=== PATIENT | female | born 1935 | race Caucasian/White ===

== ENCOUNTER → 2023-06-01 08:42 | Outpatient (REF) | payer OTHER, SELFPAY ==
[2023-06-01 08:58] LABS: % Basophils 0.8 % (0-2); % Eosinophils 5.2 % (0-6); % Immature Granulocytes 0.2 % (0-0.5); % Lymphocytes 30.5 % (20.5-51.1); % Monocytes 10.1 % (1.7-9.3); % Neutrophils 53.2 % (42.2-75.2); Absolute Eosinophils 0.3 10^3/uL (0-0.7); Absolute Lymphocytes 1.6 10^3/uL (1.2-3.4); Absolute Monocytes 0.5 10^3/uL (0.1-0.6); Absolute Neutrophils 2.7 10^3/uL (1.4-6.5); Hematocrit 27.3 % (37.0-47.0); Hemoglobin 9.1 g/dL (12.0-16.0); Mean Corp Hgb Conc. 33.3 g/dL (33.0-37.0); Mean Corpuscular Hgb 31.3 pg (27.0-31.0); Mean Corpuscular Volume 93.8 fL (81.0-99.0); Mean Platelet Volume 10.1 fL (7.4-10.4); Platelet Count 184 10^3/uL (130-400); Red Blood Cell Count 2.91 10^6/uL (4.20-5.40); Red Cell Dist. Width 13.4 % (11.5-14.5); White Blood Cell Count 5.2 10^3/uL (4.8-10.8)
== END ==
LOC: OIDL 08:42
PROVIDERS: ATTENDING PHYSICIAN Internal Medicine Hematology & Oncology
DX: D63.1 Anemia in chronic kidney disease (principal)
CPT/HCPCS: 36415; 85025

== ENCOUNTER → 2023-06-14 13:11 | Outpatient (REF) | payer OTHER, SELFPAY ==
[2023-06-14 13:37] LABS: % Basophils 0.6 % (0-2); % Eosinophils 4.8 % (0-6); % Lymphocytes 23.5 % (20.5-51.1); % Monocytes 7.6 % (1.7-9.3); % Neutrophils 63.5 % (42.2-75.2); Absolute Eosinophils 0.2 10^3/uL (0-0.7); Absolute Lymphocytes 1.2 10^3/uL (1.2-3.4); Absolute Monocytes 0.4 10^3/uL (0.1-0.6); Absolute Neutrophils 3.2 10^3/uL (1.4-6.5); Hematocrit 29.7 % (37.0-47.0); Hemoglobin 9.7 g/dL (12.0-16.0); Mean Corp Hgb Conc. 32.7 g/dL (33.0-37.0); Mean Corpuscular Hgb 30.8 pg (27.0-31.0); Mean Corpuscular Volume 94.3 fL (81.0-99.0); Mean Platelet Volume 11.2 fL (7.4-10.4); Platelet Count 128 10^3/uL (130-400); Red Blood Cell Count 3.15 10^6/uL (4.20-5.40); Red Cell Dist. Width 14.2 % (11.5-14.5)
[2023-06-14 16:10] LABS: Iron 69 ug/dl (37-170)
[2023-06-14 16:19] LABS: Percent Saturation 31 % (20-50); Total Iron Binding Capacity 221 ug/dl (265-497)
== END ==
LOC: OIDL 13:11
PROVIDERS: ATTENDING PHYSICIAN Internal Medicine Hematology & Oncology
DX: D63.1 Anemia in chronic kidney disease (principal); N18.4 Chronic kidney disease, stage 4 (severe)
CPT/HCPCS: 36415; 82728; 83540; 83550; 85025

== ENCOUNTER → 2023-06-29 13:48 | Outpatient (REF) | payer OTHER, SELFPAY ==
[2023-06-29 14:04] LABS: % Basophils 0.7 % (0-2); % Eosinophils 4.2 % (0-6); % Immature Granulocytes 0.2 % (0-0.5); % Lymphocytes 25.8 % (20.5-51.1); % Monocytes 9.6 % (1.7-9.3); % Neutrophils 59.5 % (42.2-75.2); Absolute Eosinophils 0.2 10^3/uL (0-0.7); Absolute Lymphocytes 1.2 10^3/uL (1.2-3.4); Absolute Monocytes 0.4 10^3/uL (0.1-0.6); Absolute Neutrophils 2.7 10^3/uL (1.4-6.5); Hematocrit 30.4 % (37.0-47.0); Hemoglobin 9.6 g/dL (12.0-16.0); Mean Corp Hgb Conc. 31.6 g/dL (33.0-37.0); Mean Corpuscular Volume 98.1 fL (81.0-99.0); Mean Platelet Volume 9.1 fL (7.4-10.4); Platelet Count 184 10^3/uL (130-400); White Blood Cell Count 4.6 10^3/uL (4.8-10.8)
== END ==
LOC: OIDL 13:48
PROVIDERS: ATTENDING PHYSICIAN Internal Medicine Hematology & Oncology
DX: D63.1 Anemia in chronic kidney disease (principal); N18.4 Chronic kidney disease, stage 4 (severe)
CPT/HCPCS: 36415; 85025

== ENCOUNTER → 2023-07-20 13:47 | Outpatient (REF) | payer OTHER, SELFPAY ==
[2023-07-20 14:05] LABS: % Basophils 0.5 % (0-2); % Eosinophils 4.5 % (0-6); % Immature Granulocytes 0.2 % (0-0.5); % Lymphocytes 23.4 % (20.5-51.1); % Monocytes 9.9 % (1.7-9.3); % Neutrophils 61.5 % (42.2-75.2); Absolute Eosinophils 0.3 10^3/uL (0-0.7); Absolute Lymphocytes 1.4 10^3/uL (1.2-3.4); Absolute Monocytes 0.6 10^3/uL (0.1-0.6); Absolute Neutrophils 3.6 10^3/uL (1.4-6.5); Hematocrit 30.9 % (37.0-47.0); Hemoglobin 9.8 g/dL (12.0-16.0); Mean Corp Hgb Conc. 31.7 g/dL (33.0-37.0); Mean Corpuscular Hgb 31.3 pg (27.0-31.0); Mean Corpuscular Volume 98.7 fL (81.0-99.0); Platelet Count 189 10^3/uL (130-400); Red Blood Cell Count 3.13 10^6/uL (4.20-5.40); Red Cell Dist. Width 13.2 % (11.5-14.5); White Blood Cell Count 5.8 10^3/uL (4.8-10.8)
[2023-07-20 15:32] LABS: Iron 100 ug/dl (37-170)
[2023-07-20 15:42] LABS: Percent Saturation 46 % (20-50); Total Iron Binding Capacity 215 ug/dl (265-497)
== END ==
LOC: OIDL 13:47
PROVIDERS: ATTENDING PHYSICIAN Internal Medicine Hematology & Oncology
DX: D63.1 Anemia in chronic kidney disease (principal); N18.4 Chronic kidney disease, stage 4 (severe)
CPT/HCPCS: 36415; 82728; 83540; 83550; 85025

== ENCOUNTER → 2023-08-03 13:50 | Outpatient (REF) | payer OTHER, SELFPAY ==
[2023-08-03 14:01] LABS: % Basophils 0.4 % (0-2); % Eosinophils 3.5 % (0-6); % Immature Granulocytes 0.1 % (0-0.5); % Lymphocytes 19.1 % (20.5-51.1); % Monocytes 9.4 % (1.7-9.3); % Neutrophils 67.5 % (42.2-75.2); Absolute Eosinophils 0.3 10^3/uL (0-0.7); Absolute Lymphocytes 1.6 10^3/uL (1.2-3.4); Absolute Monocytes 0.8 10^3/uL (0.1-0.6); Absolute Neutrophils 5.6 10^3/uL (1.4-6.5); Hematocrit 33.8 % (37.0-47.0); Hemoglobin 10.8 g/dL (12.0-16.0); Mean Corpuscular Hgb 31.4 pg (27.0-31.0); Mean Corpuscular Volume 98.3 fL (81.0-99.0); Mean Platelet Volume 8.9 fL (7.4-10.4); Platelet Count 212 10^3/uL (130-400); Red Blood Cell Count 3.44 10^6/uL (4.20-5.40); Red Cell Dist. Width 13.2 % (11.5-14.5); White Blood Cell Count 8.3 10^3/uL (4.8-10.8)
== END ==
LOC: OIDL 13:50
PROVIDERS: ATTENDING PHYSICIAN Internal Medicine Hematology & Oncology; FAMILY PHYSICIAN Family Medicine
DX: D63.1 Anemia in chronic kidney disease (principal); N18.4 Chronic kidney disease, stage 4 (severe)
CPT/HCPCS: 36415; 85025

== ENCOUNTER → 2023-08-17 13:37 | Outpatient (REF) | payer OTHER, SELFPAY ==
[2023-08-17 13:49] LABS: % Basophils 0.4 % (0-2); % Eosinophils 2.7 % (0-6); % Immature Granulocytes 0.1 % (0-0.5); % Lymphocytes 20.9 % (20.5-51.1); % Monocytes 8.8 % (1.7-9.3); % Neutrophils 67.1 % (42.2-75.2); Absolute Eosinophils 0.2 10^3/uL (0-0.7); Absolute Lymphocytes 1.4 10^3/uL (1.2-3.4); Absolute Monocytes 0.6 10^3/uL (0.1-0.6); Absolute Neutrophils 4.5 10^3/uL (1.4-6.5); Hematocrit 33.2 % (37.0-47.0); Hemoglobin 10.5 g/dL (12.0-16.0); Mean Corp Hgb Conc. 31.6 g/dL (33.0-37.0); Mean Corpuscular Hgb 31.2 pg (27.0-31.0); Mean Corpuscular Volume 98.5 fL (81.0-99.0); Mean Platelet Volume 8.9 fL (7.4-10.4); Platelet Count 209 10^3/uL (130-400); Red Blood Cell Count 3.37 10^6/uL (4.20-5.40); Red Cell Dist. Width 13.6 % (11.5-14.5); White Blood Cell Count 6.7 10^3/uL (4.8-10.8)
[2023-08-17 15:03] LABS: Blood Urea Nitrogen 56 mg/dl (7-17); Iron 61 ug/dl (37-170)
[2023-08-17 15:15] LABS: Percent Saturation 28 % (20-50); Total Iron Binding Capacity 217 ug/dl (265-497)
== END ==
LOC: OIDL 13:37
PROVIDERS: ATTENDING PHYSICIAN Internal Medicine Hematology & Oncology; FAMILY PHYSICIAN Family Medicine
DX: D63.1 Anemia in chronic kidney disease (principal)
CPT/HCPCS: 36415; 82565; 82728; 83540; 83550; 84520; 85025

== ENCOUNTER → 2023-08-31 13:19 | Outpatient (REF) | payer OTHER, SELFPAY ==
[2023-08-31 13:39] LABS: % Basophils 0.3 % (0-2); % Eosinophils 1.8 % (0-6); % Immature Granulocytes 0.2 % (0-0.5); % Lymphocytes 14.3 % (20.5-51.1); % Monocytes 6.1 % (1.7-9.3); % Neutrophils 77.3 % (42.2-75.2); Absolute Eosinophils 0.2 10^3/uL (0-0.7); Absolute Lymphocytes 1.4 10^3/uL (1.2-3.4); Absolute Monocytes 0.6 10^3/uL (0.1-0.6); Absolute Neutrophils 7.3 10^3/uL (1.4-6.5); Hematocrit 36.7 % (37.0-47.0); Hemoglobin 11.7 g/dL (12.0-16.0); Mean Corp Hgb Conc. 31.9 g/dL (33.0-37.0); Mean Corpuscular Hgb 31.3 pg (27.0-31.0); Mean Corpuscular Volume 98.1 fL (81.0-99.0); Mean Platelet Volume 8.8 fL (7.4-10.4); Platelet Count 248 10^3/uL (130-400); Red Blood Cell Count 3.74 10^6/uL (4.20-5.40); White Blood Cell Count 9.4 10^3/uL (4.8-10.8)
[2023-08-31 15:49] LABS: Iron 81 ug/dl (37-170)
[2023-08-31 15:59] LABS: Percent Saturation 35 % (20-50); Total Iron Binding Capacity 226 ug/dl (265-497)
== END ==
LOC: OIDL 13:19
PROVIDERS: ATTENDING PHYSICIAN Internal Medicine Hematology & Oncology; FAMILY PHYSICIAN Family Medicine
DX: D63.1 Anemia in chronic kidney disease (principal)
CPT/HCPCS: 36415; 82728; 83540; 83550; 85025

== ENCOUNTER → 2023-09-14 13:40 | Outpatient (REF) | payer OTHER, SELFPAY ==
[2023-09-14 13:49] LABS: % Basophils 0.3 % (0-2); % Eosinophils 3.3 % (0-6); % Immature Granulocytes 0.2 % (0-0.5); % Lymphocytes 22.1 % (20.5-51.1); % Neutrophils 66.1 % (42.2-75.2); Absolute Eosinophils 0.2 10^3/uL (0-0.7); Absolute Lymphocytes 1.3 10^3/uL (1.2-3.4); Absolute Monocytes 0.5 10^3/uL (0.1-0.6); Hematocrit 37.3 % (37.0-47.0); Hemoglobin 11.7 g/dL (12.0-16.0); Mean Corp Hgb Conc. 31.4 g/dL (33.0-37.0); Mean Corpuscular Hgb 30.6 pg (27.0-31.0); Mean Corpuscular Volume 97.6 fL (81.0-99.0); Platelet Count 201 10^3/uL (130-400); Red Blood Cell Count 3.82 10^6/uL (4.20-5.40); Red Cell Dist. Width 13.1 % (11.5-14.5)
[2023-09-14 15:19] LABS: Vitamin D, 25-OH*** 42.5 ng/mL (30-80)
[2023-09-14 16:09] LABS: Folate > 20.0 ng/ml (2.76-20); Vitamin B12 > 1000 pg/ml (239-931)
== END ==
LOC: OIDL 13:40
PROVIDERS: ATTENDING PHYSICIAN Internal Medicine Hematology & Oncology
DX: D63.1 Anemia in chronic kidney disease (principal)
CPT/HCPCS: 36415; 82306; 82607; 82746; 85025

== ENCOUNTER → 2023-09-18 11:36 | Outpatient (REF) | payer OTHER, SELFPAY ==
[2023-09-18 12:57] LABS: % Basophils 0.7 % (0-2); % Eosinophils 5.1 % (0-6); % Immature Granulocytes 0.5 % (0-0.5); % Lymphocytes 24.7 % (20.5-51.1); % Monocytes 7.9 % (1.7-9.3); % Neutrophils 61.1 % (42.2-75.2); Absolute Eosinophils 0.3 10^3/uL (0-0.7); Absolute Lymphocytes 1.4 10^3/uL (1.2-3.4); Absolute Monocytes 0.4 10^3/uL (0.1-0.6); Absolute Neutrophils 3.3 10^3/uL (1.4-6.5); Hematocrit 32.5 % (37.0-47.0); Hemoglobin 10.5 g/dL (12.0-16.0); Mean Corp Hgb Conc. 32.3 g/dL (33.0-37.0); Mean Corpuscular Hgb 30.8 pg (27.0-31.0); Mean Corpuscular Volume 95.3 fL (81.0-99.0); Mean Platelet Volume 9.7 fL (7.4-10.4); Nucleated Red Blood Cells % 0 %; Platelet Count 246 10^3/uL (130-400); Red Blood Cell Count 3.41 10^6/uL (4.20-5.40); Red Cell Dist. Width 13.2 % (11.5-14.5); White Blood Cell Count 5.5 10^3/uL (4.8-10.8)
[2023-09-18 14:02] LABS: Vitamin D, 25-OH*** 38.9 ng/mL (30-80)
== END ==
LOC: OIDL 11:36
PROVIDERS: ATTENDING PHYSICIAN Nurse Practitioner Family
DX: D63.1 Anemia in chronic kidney disease (principal); N18.4 Chronic kidney disease, stage 4 (severe); D50.9 Iron deficiency anemia, unspecified; D51.9 Vitamin B12 deficiency anemia, unspecified
CPT/HCPCS: 82306; 85025

== ENCOUNTER → 2023-09-25 08:25 | Outpatient (REF) | payer OTHER, SELFPAY ==
[2023-09-25 09:36] LABS: % Eosinophils 4.9 % (0-6); % Immature Granulocytes 0.2 % (0-0.5); % Lymphocytes 34.5 % (20.5-51.1); % Monocytes 9.6 % (1.7-9.3); % Neutrophils 49.8 % (42.2-75.2); Absolute Basophils 0.1 10^3/uL (0-0.2); Absolute Eosinophils 0.3 10^3/uL (0-0.7); Absolute Lymphocytes 2.1 10^3/uL (1.2-3.4); Absolute Monocytes 0.6 10^3/uL (0.1-0.6); Hematocrit 33.8 % (37.0-47.0); Mean Corp Hgb Conc. 32.5 g/dL (33.0-37.0); Mean Corpuscular Hgb 30.6 pg (27.0-31.0); Mean Corpuscular Volume 94.2 fL (81.0-99.0); Mean Platelet Volume 9.4 fL (7.4-10.4); Nucleated Red Blood Cells % 0 %; Platelet Count 227 10^3/uL (130-400); Red Blood Cell Count 3.59 10^6/uL (4.20-5.40); Red Cell Dist. Width 13.1 % (11.5-14.5); White Blood Cell Count 5.9 10^3/uL (4.8-10.8)
[2023-09-25 09:57] LABS: Phosphorus 7.1 mg/dl (2.5-4.5)
== END ==
LOC: OIDL 08:25
PROVIDERS: ATTENDING PHYSICIAN Internal Medicine Hematology & Oncology
DX: D63.1 Anemia in chronic kidney disease (principal); N18.4 Chronic kidney disease, stage 4 (severe)
CPT/HCPCS: 84100; 85025

== ENCOUNTER → 2023-09-28 08:54 | Outpatient (REF) | payer OTHER, SELFPAY ==
[2023-09-28 09:39] LABS: % Basophils 0.8 % (0-2); % Eosinophils 2.7 % (0-6); % Immature Granulocytes 0.4 % (0-0.5); % Lymphocytes 22.5 % (20.5-51.1); % Monocytes 11.1 % (1.7-9.3); % Neutrophils 62.5 % (42.2-75.2); Absolute Basophils 0.1 10^3/uL (0-0.2); Absolute Eosinophils 0.2 10^3/uL (0-0.7); Absolute Lymphocytes 1.6 10^3/uL (1.2-3.4); Absolute Monocytes 0.8 10^3/uL (0.1-0.6); Absolute Neutrophils 4.6 10^3/uL (1.4-6.5); Hematocrit 31.1 % (37.0-47.0); Hemoglobin 10.1 g/dL (12.0-16.0); Mean Corp Hgb Conc. 32.5 g/dL (33.0-37.0); Mean Corpuscular Hgb 30.4 pg (27.0-31.0); Mean Corpuscular Volume 93.7 fL (81.0-99.0); Mean Platelet Volume 9.3 fL (7.4-10.4); Nucleated Red Blood Cells % 0 %; Platelet Count 185 10^3/uL (130-400); Red Blood Cell Count 3.32 10^6/uL (4.20-5.40); Red Cell Dist. Width 13.1 % (11.5-14.5); White Blood Cell Count 7.3 10^3/uL (4.8-10.8)
== END ==
LOC: REG 08:54
PROVIDERS: ATTENDING PHYSICIAN Internal Medicine Hematology & Oncology; FAMILY PHYSICIAN Family Medicine
DX: D63.1 Anemia in chronic kidney disease (principal); N18.4 Chronic kidney disease, stage 4 (severe); D50.9 Iron deficiency anemia, unspecified; D51.9 Vitamin B12 deficiency anemia, unspecified
CPT/HCPCS: 36415; 85025

== ENCOUNTER → 2023-10-12 09:32 | Outpatient (REF) | payer OTHER, SELFPAY ==
[2023-10-12 09:42] LABS: % Basophils 0.7 % (0-2); % Eosinophils 3.1 % (0-6); % Monocytes 8.4 % (1.7-9.3); % Neutrophils 64.8 % (42.2-75.2); Absolute Eosinophils 0.2 10^3/uL (0-0.7); Absolute Lymphocytes 1.4 10^3/uL (1.2-3.4); Absolute Monocytes 0.5 10^3/uL (0.1-0.6); Absolute Neutrophils 3.9 10^3/uL (1.4-6.5); Hematocrit 32.4 % (37.0-47.0); Hemoglobin 10.6 g/dL (12.0-16.0); Mean Corp Hgb Conc. 32.7 g/dL (33.0-37.0); Mean Corpuscular Hgb 30.8 pg (27.0-31.0); Mean Corpuscular Volume 94.2 fL (81.0-99.0); Platelet Count 237 10^3/uL (130-400); Red Blood Cell Count 3.44 10^6/uL (4.20-5.40); Red Cell Dist. Width 12.8 % (11.5-14.5)
[2023-10-12 10:38] LABS: Blood Urea Nitrogen 83 mg/dl (7-17); Iron 203 ug/dl (37-170)
[2023-10-12 10:45] LABS: Percent Saturation 103 % (20-50); Total Iron Binding Capacity 197 ug/dl (265-497)
== END ==
LOC: OIDL 09:32
PROVIDERS: Internal Medicine Hematology & Oncology; ATTENDING PHYSICIAN Nurse Practitioner Family; FAMILY PHYSICIAN Specialist
DX: D63.1 Anemia in chronic kidney disease (principal)
CPT/HCPCS: 36415; 82565; 82728; 83540; 83550; 84520; 85025

== ENCOUNTER → 2023-10-26 09:28 | Outpatient (REF) | payer OTHER, SELFPAY ==
[2023-10-26 09:44] LABS: % Basophils 0.6 % (0-2); % Eosinophils 3.3 % (0-6); % Immature Granulocytes 0.1 % (0-0.5); % Lymphocytes 18.7 % (20.5-51.1); % Monocytes 10.5 % (1.7-9.3); % Neutrophils 66.8 % (42.2-75.2); Absolute Eosinophils 0.2 10^3/uL (0-0.7); Absolute Lymphocytes 1.4 10^3/uL (1.2-3.4); Absolute Monocytes 0.8 10^3/uL (0.1-0.6); Absolute Neutrophils 4.8 10^3/uL (1.4-6.5); Hematocrit 30.7 % (37.0-47.0); Mean Corp Hgb Conc. 32.6 g/dL (33.0-37.0); Mean Corpuscular Hgb 31.8 pg (27.0-31.0); Mean Corpuscular Volume 97.8 fL (81.0-99.0); Mean Platelet Volume 8.4 fL (7.4-10.4); Platelet Count 207 10^3/uL (130-400); Red Blood Cell Count 3.14 10^6/uL (4.20-5.40); Red Cell Dist. Width 13.8 % (11.5-14.5); White Blood Cell Count 7.2 10^3/uL (4.8-10.8)
== END ==
LOC: OID 09:28
PROVIDERS: ATTENDING PHYSICIAN Nurse Practitioner Family; PRIMARYCARE PHYSICIAN Specialist
DX: N18.4 Chronic kidney disease, stage 4 (severe) (principal); D63.1 Anemia in chronic kidney disease; D50.9 Iron deficiency anemia, unspecified; D51.9 Vitamin B12 deficiency anemia, unspecified
CPT/HCPCS: 36415; 85025

== ENCOUNTER → 2023-11-08 10:18 | Outpatient (REF) | payer OTHER, SELFPAY ==
[2023-11-08 10:42] LABS: % Basophils 0.7 % (0-2); % Eosinophils 3.9 % (0-6); % Immature Granulocytes 0.2 % (0-0.5); % Lymphocytes 24.2 % (20.5-51.1); % Monocytes 8.2 % (1.7-9.3); % Neutrophils 62.8 % (42.2-75.2); Absolute Eosinophils 0.2 10^3/uL (0-0.7); Absolute Lymphocytes 1.4 10^3/uL (1.2-3.4); Absolute Monocytes 0.5 10^3/uL (0.1-0.6); Absolute Neutrophils 3.5 10^3/uL (1.4-6.5); Hemoglobin 10.2 g/dL (12.0-16.0); Mean Corp Hgb Conc. 32.9 g/dL (33.0-37.0); Mean Corpuscular Hgb 31.5 pg (27.0-31.0); Mean Corpuscular Volume 95.7 fL (81.0-99.0); Mean Platelet Volume 8.8 fL (7.4-10.4); Platelet Count 240 10^3/uL (130-400); Red Blood Cell Count 3.24 10^6/uL (4.20-5.40); Red Cell Dist. Width 13.1 % (11.5-14.5); White Blood Cell Count 5.6 10^3/uL (4.8-10.8)
[2023-11-08 12:26] LABS: Iron 145 ug/dl (37-170)
[2023-11-08 12:35] LABS: Percent Saturation 69 % (20-50); Total Iron Binding Capacity 208 ug/dl (265-497)
== END ==
LOC: OID 10:18
PROVIDERS: Internal Medicine Hematology & Oncology; ATTENDING PHYSICIAN Nurse Practitioner Family; FAMILY PHYSICIAN Specialist
DX: N18.4 Chronic kidney disease, stage 4 (severe) (principal); D63.1 Anemia in chronic kidney disease; D50.9 Iron deficiency anemia, unspecified; D51.9 Vitamin B12 deficiency anemia, unspecified
CPT/HCPCS: 36415; 82728; 83540; 83550; 85025

== ENCOUNTER → 2023-12-07 09:42 | Outpatient (REF) | payer OTHER, SELFPAY ==
[2023-12-07 09:53] LABS: % Basophils 0.7 % (0-2); % Immature Granulocytes 0.2 % (0-0.5); % Lymphocytes 20.6 % (20.5-51.1); % Monocytes 9.8 % (1.7-9.3); % Neutrophils 65.7 % (42.2-75.2); Absolute Eosinophils 0.2 10^3/uL (0-0.7); Absolute Lymphocytes 1.2 10^3/uL (1.2-3.4); Absolute Monocytes 0.6 10^3/uL (0.1-0.6); Absolute Neutrophils 3.7 10^3/uL (1.4-6.5); Hemoglobin 10.5 g/dL (12.0-16.0); Mean Corp Hgb Conc. 33.9 g/dL (33.0-37.0); Mean Corpuscular Hgb 32.6 pg (27.0-31.0); Mean Corpuscular Volume 96.3 fL (81.0-99.0); Mean Platelet Volume 8.9 fL (7.4-10.4); Platelet Count 247 10^3/uL (130-400); Red Blood Cell Count 3.22 10^6/uL (4.20-5.40); White Blood Cell Count 5.6 10^3/uL (4.8-10.8)
[2023-12-07 11:20] LABS: Iron 172 ug/dl (37-170)
[2023-12-07 11:30] LABS: Percent Saturation 78 % (20-50); Total Iron Binding Capacity 218 ug/dl (265-497)
== END ==
LOC: OID 09:42
PROVIDERS: ATTENDING PHYSICIAN Nurse Practitioner Family
DX: N18.4 Chronic kidney disease, stage 4 (severe) (principal); D63.1 Anemia in chronic kidney disease
CPT/HCPCS: 36415; 82728; 83540; 83550; 85025

== ENCOUNTER 2023-12-27 11:01 | Inpatient (IN) | payer OTHER, SELFPAY ==
[2023-12-25 17:08] VITALS: BP 152/63
[2023-12-25 17:14] VITALS: BP 152/63; BMI 24.1
--- NOTE | 2023-12-25 17:28 | ED.GENMED ---
History of Present Illness
General
Chief Complaint: Fatigue
Source: patient
Time Seen by Provider: 12/25/23 17:14
History of Present Illness
History of Present Illness:
88-year-old female with past medical history of hypertension, chronic kidney disease (on peritoneal dialysis) presenting to the emergency department via EMS from home for increased fatigue, generalized weakness, diminished p.o. intake and generally
feeling unwell. This all started about 1 week ago. Patient notes that she was also started on tramadol about a week and a half ago for some pain in her upper part of her back as well as to help her sleep and has been taking this nightly. Patient
also notes about 2 days ago she started with constipation and took a Senokot yesterday and today. She denies any fevers, chills, rigors, URI-like symptoms, abdominal pain, urinary symptoms, cough or any other concerns. Patient lives at home alone
on her own. Does not use any ambulatory assistive devices.
Past History
Past History
ED Past Medical History: HTN, Hypercholesterolemia, Renal failure and Other (Raynauds)
ED Past Surgical History: Orthopedic
Social History
Tobacco: Non-smoker
Alcohol: None
Drug: None
Personal:
Living: alone
Employment: Retired
Family History
Family History: Other
Review of Systems
Review of Systems
All Other Systems: ROS reviewed and negative except as documented in HPI and ROS
Phy Exam
Physical Exam
Physical Exam:
GENERAL: Alert , in no apparent distress, Thin and somewhat soft-spoken
EYE: Clear conjunctiva
NECK: Supple
ENT: Mildly dry mucous membranes
CARDIAC: Regular rate and rhythm .
LUNGS: Clear breath sounds bilaterally, no acute respiratory distress, no wheezes/rales/rhonchi
ABDOMEN: Soft, without focal tenderness, no r/g, no cvat
NEUROLOGICAL: Alert and oriented x 3
SKIN: Warm and dry, skin intact.
MUSCULOSKELETAL: No edema, well perfused.
PSYCH: Normal and appropriate interaction.
Scores
Heart Failure Risk
Heart Failure Risk Score: Not Applicable
Heart Score for Chest Pain Patients
STEMI patient?: Not applicable
Withdrawal Assessment of Alcohol
Withdrawal Assessment Completed?: Not applicable
Course
Orders/Labs/Results
Orders:
Orders
12/25/23 17:09
EKG [Electrocardiogram (*1)] Urgent
Reason for Study: Fatigue / Weakness
EKG- Treatment ONCE
12/25/23 17:20
Electrocardiogram (*1) Urgent
Reason for Study: Fatigue / Weakness
Urinalysis Reflex To Culture Urgent
CR Chest - 2 Views Urgent
Comment:
Reason For Exam: fatigue, weak
12/25/23 17:31
COVID-19 Antigen Urgent
Source: Nasal Swab
Complete Blood Count/With Diff Urgent
Comprehensive Metabolic Panel Urgent
TSH Urgent
Troponin I Urgent
12/25/23 17:34
0.9% Sodium Chloride 500 ml [Nss] 500 ml IV BOLUS
12/25/23 17:52
Alprazolam [Xanax] 0.5 mg PO NOW STA
Abnormal Lab Results
12/25/23
17:31
RBC 3.25 L 10^6/uL
(4.20-5.40)
Hgb 10.7 L g/dL
(12.0-16.0)
Hct 31.6 L %
(37.0-47.0)
MCH 32.9 H pg
(27.0-31.0)
Absolute Lymphs (auto) 0.8 L 10^3/uL
(1.2-3.4)
Neutrophils % 77.8 H %
(42.2-75.2)
Lymphocytes % 11.8 L %
(20.5-51.1)
Sodium 133 L mmol/L
(135-145)
BUN 57 H mg/dl
(7-17)
Creatinine 7.0 H* mg/dL
(0.6-1.0)
Glucose 129 H mg/dl
(70-99)
Total Protein 6.1 L g/dl
(6.3-8.2)
TSH 227.00 H uIU/ml
(0.47-4.68)
12/25/23 17:31
12/25/23 17:31
Vital Signs
Initial and Last Documented VS:
Initial Vital Signs
BP
152/63
12/25/23 17:08
Last Documented Vital Signs
Temp Pulse Resp BP Pulse Ox
98.1 F 79 20 152/63 80
12/25/23 17:14 12/25/23 17:15 12/25/23 17:15 12/25/23 17:14 12/25/23 17:50
MDM/Problems Addressed
Differential Diagnosis Includes:
medication side effects specifically tramadol, electrolyte derangement, less concern for acute infection
MDM/Problems Addressed:
88-year-old female presenting emergency department for evaluation of generalized weakness, fatigue and diminished p.o. intake over the last week. Symptoms all started shortly after initiating tramadol. I suspect this is the most likely reasoning.
Patient also notes that she recently had her levothyroxine increased so certainly could be related to her thyroid issue however less likely. Will check labs and do infectious workup given patient's reported symptoms and age. Patient notes that she
lives at home alone on her own. Diminished p.o. intake so we will treat with light fluids. Reassessment following
Chronic conditions affecting care: Kidney disease
*Radiology
Radiology exam reviewed: radiology read reviewed
*Pulse Oximetry
Patient hypoxic: no
*EKG
Interpreted by ED Provider?: Yes
Comparison EKG: no changes
Heart Rate: 77
Rate: normal
Rhythm: sinus
[place]: normal axis
Interval: first degree heart block
*Audio Video Tech Interpretation
Rate: normal
Rhythm: sinus
*Critical Care Note
Total Time (30-74mins, 75-104mins- exclusive of procedures): Not Applicable
Data Reviewed
Review of Other/Old Records Reveals: Labs and Records
Comment
Comment:
5:50 PM:Called the patient's bedside the patient is having a panic attack. Patient notes that she has been having these more frequently over the last few weeks. Normally would just wait them out but today states she does not feel like she is able
to do this and is requesting something. Half milligram of Xanax p.o. ordered. Will continue to reassess.
Patient Management
Discussion with other providers: Hospitalist
Escalation/DeEscalation of care consider admission/obs:
Patients labs noted for mild anemia which is likely due to CKD. Her creatinine is significantly elevated at 7.0 and GFR of 5.2. TSH also markedly elevated at 227. Suspect patients presenting weakness is multifactorial but given her age, lives alone
and lab abnormalities feel it would be in patients best interest for inpatient eval. Hospitalist team accepts for continued evaluation and treatment
ED Attending Note
-
Portions of this chart may have been created with voice recognition software.� Occasional wrong word or��sound alike� substitutions may have occurred due to the inherent limitations of voice recognition software.
Discharge Plan
Departure
Patient Disposition: Admit
Date of Disposition: 12/25/23
Time of Disposition: 19:51
Presentation/result/management discussed w/ accepting MD/DO: Hospitalist
Discharge Problem:
Generalized weakness, CKD (chronic kidney disease), Hypothyroidism, Medication side effect
Prescriptions:
No Action
nifedipine [Procardia XL] 30 mg Tablet Extended Release 24hr
30 mg PO HS
tramadol 50 mg Tablet
50 mg PO BIDPRN PRN (Reason: moderate pain)
levothyroxine 25 mcg Tablet
50 mcg PO DAILY
furosemide 80 mg Tablet
80 mg PO DAILY
calcium carbonate [Calcium 500] 500 mg calcium (1,250 mg) Tablet,Chewable
500 mg PO DAILY
Estring 2 mg (7.5 mcg /24 hour) Ring
1 vag ring VAGINAL [id number]
Patient Comments:
12/25/23: currently not in, patient scheduled to get it replaced on Monday
losartan 100 mg Tablet
100 mg PO DAILY
rosuvastatin 5 mg Tablet
5 mg PO DAILY
Dialyvite 100-1 mg Tablet
1 tab PO DAILY
cholecalciferol (vitamin D3) [Vitamin D3] 50 mcg (2,000 unit) Tablet
50 mcg PO DAILY
febuxostat 40 mg Tablet
40 mg PO DAILY
cranberry 450 mg Tablet
450 mg PO DAILY
Interventions
Interventions:
*Risk Screen - Suicide Last Done: 12/25/23 17:48
*General Assessment Last Done: 12/25/23 17:47
*Neglect/Abuse Screening Last Done: 12/25/23 17:47
*ED COVID-19 Vaccine History Last Done: 12/25/23 17:35
Discharge Date and Time
Print Language: [place]
[2023-12-25] MEDS: NSS 500 IV (17:36)
[2023-12-25 17:55] LABS: % Basophils 0.3 % (0-2); % Eosinophils 1.8 % (0-6); % Immature Granulocytes 0.3 % (0-0.5); % Lymphocytes 11.8 % (20.5-51.1); % Neutrophils 77.8 % (42.2-75.2); Absolute Eosinophils 0.1 10^3/uL (0-0.7); Absolute Lymphocytes 0.8 10^3/uL (1.2-3.4); Absolute Monocytes 0.5 10^3/uL (0.1-0.6); Absolute Neutrophils 5.1 10^3/uL (1.4-6.5); Hematocrit 31.6 % (37.0-47.0); Hemoglobin 10.7 g/dL (12.0-16.0); Mean Corp Hgb Conc. 33.9 g/dL (33.0-37.0); Mean Corpuscular Hgb 32.9 pg (27.0-31.0); Mean Corpuscular Volume 97.2 fL (81.0-99.0); Mean Platelet Volume 8.9 fL (7.4-10.4); Nucleated Red Blood Cells % 0 %; Platelet Count 197 10^3/uL (130-400); Red Blood Cell Count 3.25 10^6/uL (4.20-5.40); White Blood Cell Count 6.6 10^3/uL (4.8-10.8)
[2023-12-25 17:56] VITALS: BP 152/61
[2023-12-25] MEDS: XANAX 0.5 MG PO (17:58)
[2023-12-25 18:00] VITALS: BP 168/66
[2023-12-25 18:08] LABS: ALT (SGPT) 22 U/L (0-35); AST (SGOT) 36 U/L (14-36); Albumin 3.9 g/dl (3.5-5.0); Alkaline Phosphatase 64 U/L (38-126); Blood Urea Nitrogen 57 mg/dl (7-17); Calcium 9.4 mg/dl (8.4-10.2); Carbon Dioxide 22 mmol/L (22-30); Chloride 98 mmol/L (98-107); Estimated Creatinine Clearance 4 ml/min; Glucose 129 mg/dl (70-99); Potassium 4.4 mmol/L (3.5-5.1); Sodium 133 mmol/L (135-145); Total Bilirubin 0.8 mg/dl (0.2-1.3); Total Protein 6.1 g/dl (6.3-8.2); eGFR 5.28
[2023-12-25 18:16] LABS: COVID-19 Antigen Negative (Negative)
[2023-12-25 18:17] LABS: Troponin I < 0.012 ng/ml
--- NOTE | 2023-12-25 18:54 | PHANOTE ---
med rec tech(12/25/23)-Patient states she is supposed to be on sevelamer HCl 800mg TID, but does not take it. Stated she did not want it while in the hospital either.
[2023-12-25 19:00] VITALS: BP 140/82
--- NOTE | 2023-12-25 19:00 | EDRN ---
Report received, introduced myself to patient and son, patient felt a little anxious still, meds still kicking in, will inform provider
--- NOTE | 2023-12-25 19:45 | EDRN ---
DAVID Styles went in to reassess patient who reports feeling much better and not as anxious, patient to be admitted to the hospital
--- NOTE | 2023-12-25 21:11 | HPS.HSE ---
Family Physician
-
Family Physician: Bill Scales
Chief Complaint
-
fatigue
History of Present Illness
88-year-old female past medical history of hypertension, ESRD on peritoneal dialysis, hypercholesterolemia, Raynaud's, presenting for fatigue, generalized weakness and decreased p.o. intake and generally feeling unwell over the past 2 weeks.
History is obtained from patient as well as patient's daughter who is a physician and very helpful in providing history.
Patient has been suffering from intermittent pain in her mid back radiating to her left side. She has been having a lot of difficulty falling asleep due to this. She was started on tramadol which has helped her back pain and help her sleep at
night. This was started around 10 days ago. Patient states that the fatigue started before initiation of tramadol. Patient is also been having constipation despite taking senna while on the tramadol and sometimes has abdominal pain.
A week ago patient had TSH checked and was started on levothyroxine by her antique collector. She was initially started on 25 mg which was increased to 75 mg but patient did not tolerate this so it was decreased to 50 mg.
Patient started peritoneal dialysis 3 months ago and has been tolerating this without any problems. She denies any shortness of breath or chest pain or fevers or chills or nausea or vomiting or cough.
Patient does not smoke or drink alcohol.
Medical History
Past Medical History
Past Medical History: Reports Other (hypertension, ESRD on peritoneal dialysis, hypercholesterolemia, Raynaud's,)
Past Surgical History: Reports None
Social History
Tobacco: Non-smoker
Alcohol: None
Drug: None
Family History
Family History: Not pertinent
Allergies / Home Medications
Allergies reflects when Allergies were last updated in [employer].
Home Medications with original date entered in [employer]
Allergy/Medication List:
Allergies
Allergy/AdvReac Type Severity Reaction Status Date / Time
aspirin Allergy Unknown Verified 05/17/20 14:48
ibuprofen Allergy Unknown Verified 05/17/20 14:48
iodine Allergy Hives Verified 05/17/20 14:48
Sulfa (Sulfonamide Allergy Vomiting Verified 05/17/20 14:48
Antibiotics)
narcotics Allergy Nausea Uncoded 05/17/20 14:48
Home Medications
calcium carbonate (Calcium 500) 500 mg PO DAILY 12/25/23
cholecalciferol (vitamin D3) 50 mcg (2,000 unit) tablet (Vitamin D3) 50 mcg PO DAILY 12/25/23
cranberry fruit 450 mg tablet (cranberry) 450 mg PO DAILY 12/25/23
estradiol 2 mg (7.5 mcg/24 hour) vaginal ring (Estring) 1 vag ring vaginal [id number] 12/25/23
febuxostat 40 mg tablet 40 mg PO DAILY 12/25/23
furosemide 80 mg tablet 80 mg PO DAILY 12/25/23
levothyroxine 25 mcg tablet 50 mcg PO DAILY 12/25/23
losartan 100 mg tablet 100 mg PO DAILY 12/25/23
nifedipine 30 mg tablet,extended release 24 hr (Procardia XL) 30 mg PO HS 12/25/23
rosuvastatin 5 mg tablet 5 mg PO DAILY 12/25/23
tramadol 50 mg tablet 50 mg PO BIDPRN PRN moderate pain 12/25/23
vitamin B complex-vitamin C 100 mg-folic acid 1 mg tablet (Dialyvite) 1 tab PO DAILY 12/25/23
Review of Systems
-
History Source: Patient
A 12 point ROS was completed and negative except as noted: Yes
Constitutional: Reports No Symptoms
EENT: Reports No Symptoms
Respiratory: Reports No Symptoms
Cardiac: Reports No Symptoms
Abdomen/GI: Reports No Symptoms
: Reports No Symptoms
Musculoskeletal: Reports See HPI
Skin: Reports No Symptoms
Neurological: Reports No Symptoms
Endocrine: Reports No Symptoms
Hematologic/Lymphatic: Reports No Symptoms
Psych: Reports No Symptoms
Physical Exam
Vital Signs
Vital Signs
Temp Pulse Resp BP Pulse Ox
98.1 F 79 20 152/63 80
12/25/23 17:14 12/25/23 17:15 12/25/23 17:15 12/25/23 17:14 12/25/23 17:50
Physical Exam
General: Well Developed, Well Nourished and No Apparent Distress
HEENT: NormoCephalic, Moist mucous membranes and Atraumatic
Respiratory: Clear
Cardiac: S1/S2 and Regular Rhythm; No Murmur or Rub
GI: Soft, Non Distended, Normal Bowel Sounds and Tender; No Organomegaly
Rectal: Deferred by Provider
Musculoskeletal: No Clubbing, No Cyanosis and No Edema
Skin: No Rash
Neuro: Nonfocal/grossly intact
Laboratory Results
-
12/25/23 17:31
12/25/23 17:31
Laboratory Results
Total Bilirubin 0.8 mg/dl (0.2-1.3) 12/25/23 17:31
AST 36 U/L (14-36) 12/25/23 17:31
ALT 22 U/L (0-35) 12/25/23 17:31
Alkaline Phosphatase 64 U/L (38-126) 12/25/23 17:31
Troponin I < 0.012 ng/ml 12/25/23 17:31
Data Reviewed
-
Lab Data: Labs Reviewed by me
Old Records: Reviewed
Impression/Plan
-
IMPRESSION:
PLAN:
# Weakness secondary to hypothyroidism, possibly altered thyroid function tests exacerbated by tramadol in the setting of ESRD
-TSH of 227, possibly affected by tramadol use
-Free T4 pending
-Chest x-ray pending
-COVID-negative
-Stop tramadol
-Daughter who is a physician is in agreement that we can try 0.25 mg as needed Ativan to help with sleep
-Continue levothyroxine
-PT/OT
# Acute lower back pain with associated insomnia
-Tylenol
-Hold tramadol
-Check thoracic and lumbar x-ray to evaluate for compression fracture
-As needed Ativan at nighttime to help with sleep
# Constipation secondary to tramadol
-Add MiraLAX
-Continue senna
ESRD on peritoneal dialysis
-Continue Lasix
-Nephrology consulted for peritoneal dialysis
Essential hypertension
-Continue nifedipine, losartan
Hypercholesterolemia
-Continue statin
Raynaud's disease
Chronic anemia of renal disease
-Hemoglobin stable
Gout
-Continue febuxostat
Full code
DVT prophylaxis�heparin
Renal diet
[2023-12-25 21:46] VITALS: BP 161/83; BMI 23.6
[2023-12-25] MEDS: ATIVAN 0.25 MG PO (22:10)
[2023-12-25] MEDS: PROCARDIA XL (EXTENDED RELEASE) 30 MG PO (22:10)
--- NOTE | 2023-12-25 23:27 | PTCARENOTE ---
Received pt from ED RN. Pt walked from the stretcher to our bed. Pt is AAOx3. HR regular. On RA O2 sat 96%, lungs clear. BRPx1. CHG bath provided. Pt is laying in bed with call zapata in reach.
[2023-12-26 02:08] LABS: Urine Albumin 1+ (Neg - Trace); Urine Bilirubin Negative (Negative); Urine Character Clear (Clear); Urine Color Yellow; Urine Glucose Negative (Negative); Urine Ketone Negative (Negative); Urine Leukocyte Trace (Negative); Urine Nitrite Negative (Negative); Urine Occult Blood Negative (Negative); Urine Urobilinogen Negative (Neg - 1+)
[2023-12-26 02:27] LABS: Urine Squamous Cell >30 /LPF (Few)
[2023-12-26 02:28] LABS: Urine Amorphous Seen; Urine Bacteria Moderate (Negative); Urine Red Blood Cell 0-2 /HPF (0-2); Urine White Cell 26-30 /HPF (0-5)
[2023-12-26 05:29] VITALS: BMI 23.3
[2023-12-26] MEDS: SYNTHROID 50 MCG PO (05:38)
[2023-12-26 05:57] LABS: % Basophils 0.5 % (0-2); % Eosinophils 2.9 % (0-6); % Immature Granulocytes 0.2 % (0-0.5); % Lymphocytes 27.6 % (20.5-51.1); % Monocytes 8.8 % (1.7-9.3); Absolute Eosinophils 0.2 10^3/uL (0-0.7); Absolute Lymphocytes 1.6 10^3/uL (1.2-3.4); Absolute Monocytes 0.5 10^3/uL (0.1-0.6); Absolute Neutrophils 3.6 10^3/uL (1.4-6.5); Hematocrit 29.9 % (37.0-47.0); Hemoglobin 10.1 g/dL (12.0-16.0); Mean Corp Hgb Conc. 33.8 g/dL (33.0-37.0); Mean Corpuscular Hgb 31.9 pg (27.0-31.0); Mean Corpuscular Volume 94.3 fL (81.0-99.0); Mean Platelet Volume 8.7 fL (7.4-10.4); Nucleated Red Blood Cells % 0 %; Platelet Count 186 10^3/uL (130-400); Red Blood Cell Count 3.17 10^6/uL (4.20-5.40); Red Cell Dist. Width 13.2 % (11.5-14.5); White Blood Cell Count 5.9 10^3/uL (4.8-10.8)
[2023-12-26 06:19] LABS: ALT (SGPT) 19 U/L (0-35); AST (SGOT) 31 U/L (14-36); Albumin 3.2 g/dl (3.5-5.0); Alkaline Phosphatase 64 U/L (38-126); Blood Urea Nitrogen 54 mg/dl (7-17); Calcium 9.3 mg/dl (8.4-10.2); Carbon Dioxide 22 mmol/L (22-30); Chloride 104 mmol/L (98-107); Estimated Creatinine Clearance 4 ml/min; Glucose 75 mg/dl (70-99); Potassium 4.6 mmol/L (3.5-5.1); Sodium 138 mmol/L (135-145); Total Bilirubin 0.8 mg/dl (0.2-1.3); Total Protein 5.5 g/dl (6.3-8.2); eGFR 5.28
[2023-12-26] MEDS: VITAMIN D3 (cholecalciferol) 50 MCG PO (08:55)
[2023-12-26] MEDS: TUMS 1 TABLET PO (08:55)
[2023-12-26] MEDS: CRESTOR 5 MG PO (08:55)
[2023-12-26] MEDS: LASIX 80 MG PO (08:55)
[2023-12-26] MEDS: NEPHROCAP 1 CAPSULE PO (08:58)
[2023-12-26] MEDS: MIRALAX 17 GRAMS PO (08:59)
[2023-12-26] MEDS: ULORIC 40 MG PO (08:59)
[2023-12-26] MEDS: COZAAR 100 MG PO (08:59)
--- NOTE | 2023-12-26 08:59 | W.PN.HOSP.TC ---
Today's Communication/Plan
-
Bowel regimen. Continue levothyroxine
Assessment / Plan
Assessment / Plan
Physical exam:
General: Well Developed, Well Nourished and No Apparent Distress
HEENT: Normocephalic, Atraumatic and Moist Mucous Membranes
Respiratory: Clear to Auscultation; Negative Wheezes, Rales or Rhonchi
Cardiac: Regular Rhythm and S1/S2
GI: Soft, Nontender and Nondistended
Musculoskeletal: No Clubbing, No Cyanosis and No Edema
Neuro: Awake, Alert and Oriented
Psych: Calm
A/P:
# Weakness secondary to hypothyroidism, possibly altered thyroid function tests exacerbated by tramadol in the setting of ESRD
-TSH of 227, possibly affected by tramadol use
-Free T4 pending
-Chest x-ray pending
-COVID-negative
-Stop tramadol
-Daughter who is a physician is in agreement that we can try 0.25 mg as needed Ativan to help with sleep
-Continue levothyroxine
-PT/OT
# Acute lower back pain with associated insomnia
-Tylenol
-Hold tramadol
-Check thoracic and lumbar x-ray to evaluate for compression fracture
-As needed Ativan at nighttime to help with sleep
# Constipation secondary to tramadol
-Add MiraLAX
-Continue senna
ESRD on peritoneal dialysis
-Continue Lasix
-Nephrology consulted for peritoneal dialysis
Essential hypertension
-Continue nifedipine, losartan
Hypercholesterolemia
-Continue statin
Raynaud's disease
Chronic anemia of renal disease
-Hemoglobin stable
Gout
-Continue febuxostat
Full code
DVT prophylaxis�heparin
Renal diet
Anticipated Discharge: 24 - 48 hours
Subjective/Interval History
-
Date of Service: December 26, 2023
Patient with generalized weakness. Still having constipation. Afebrile
Objective Data
-
Labs:
Laboratory Results
12/26/23
05:46
WBC 5.9
Hgb 10.1 L
Hct 29.9 L
Plt Count 186
Sodium 138
Potassium 4.6
Chloride 104
Carbon Dioxide 22
BUN 54 H
Creatinine 7.0 H*
Glucose 75
Calcium 9.3
Total Bilirubin 0.8
AST 31
ALT 19
Alkaline Phosphatase 64
Vital Signs:
Vital Signs
Temp Pulse Resp BP Pulse Ox
97.7 F 78 16 181/63 97
12/26/23 07:55 12/25/23 21:46 12/25/23 21:46 12/25/23 22:10 12/25/23 23:07
I&O
12/25/23 12/26/23 12/27/23
06:59 06:59 06:59
Output Total 300 / 300 300 / 300
Balance -300 / -300 -300 / -300
[2023-12-26] MEDS: HEPARIN 5000 UNITS SC ×2 (09:00→20:27)
--- NOTE | 2023-12-26 10:37 | W.CON.NEPH ---
Consultation
-
Date/Time Consultation Requested: 12/26/23 0640
Date/Time Consultation Performed: 12/26/23 1000
Requesting Provider: Milton Turner
Performing Provider: Marissa Iglesias
Reason for Consultation: ESRD on PD
Medical History
-
Chief Complaint: gen weakness
History of Present Illness:
88-year-old female past medical history of hypertension Nifedipien, Losartan, ESRD on peritoneal dialysis started 3m ago on lasix too with residual UOP, hypercholesterolemia stain, ?gout on [place], Raynaud's, Hypothyroidism presented on 12/24 with gen
weakness and fatigue. She alos has poor appetite and has not eaten since last 3days. Pt reports recent diagnosis of hypothyroidism and started on levothyroxine 1week ago by her manager net Dr Pop at [place] and referred to her to PCP who
increased the dose on Monday but pt felt not well after taking larger dose and decreased to 50mcg daily. She has been suffering from intermittent pain in her mid back radiating to her left side. She has been having a lot of difficulty falling
asleep due to this. She was started on tramadol which has helped her back pain and help her sleep at night. This was started around 10 days ago. Patient states that the fatigue started before initiation of tramadol. Patient is also been having
constipation despite taking senna while on the tramadol and sometimes has abdominal pain. Had mild nausea, no fevers. 1-2weeks ago she was treated for UTI currently with out any symptoms. No abd pain, no cp or sob or fever or cough.
She reports PD has been going well, 5days/week-off Monday and Monday but she missed last night, FV 2.5lit, green bag(2.5% 4 exchanges on cycler). Daughter is physician?, son works in PT at .
Past Medical History
hypertension, ESRD on peritoneal dialysis, hypercholesterolemia, Raynaud's, hyperuricemia
Past Surgical History: Other (PD catheter placement)
Social History
Tobacco: Non-Smoker
Alcohol: None
Drug: None
Living: Alone
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
Family History
brothers and sister with kidney disease
Allergies / Home Medications
Allergy/AdvReac Type Severity Reaction Status Date / Time
aspirin Allergy SEE BELOW Verified 12/25/23 21:41
ibuprofen Allergy SEE BELOW Verified 12/25/23 21:41
iodine Allergy Hives Verified 12/25/23 21:41
Sulfa (Sulfonamide Allergy Vomiting Verified 05/17/20 14:48
Antibiotics)
narcotics Allergy Nausea Uncoded 05/17/20 14:48
�Medication �Instructions �Recorded �Confirmed �Type
calcium carbonate (Calcium 500) 500 mg PO DAILY Supplement 12/25/23 12/25/23 History
cholecalciferol (vitamin D3) 50 50 mcg PO DAILY Supplement 12/25/23 12/25/23 History
mcg (2,000 unit) tablet (Vitamin
D3)
cranberry fruit 450 mg tablet 450 mg PO DAILY Supplement 12/25/23 12/25/23 History
(cranberry)
estradiol 2 mg (7.5 mcg/24 hour) 1 vag ring vaginal [id number] 12/25/23 12/25/23 History
vaginal ring (Estring) Hormonal Agent
febuxostat 40 mg tablet 40 mg PO DAILY HYPERURICEMIA 12/25/23 12/25/23 History
furosemide 80 mg tablet 80 mg PO DAILY Fluid 12/25/23 12/25/23 History
Retention/Swelling
levothyroxine 25 mcg tablet 50 mcg PO DAILY Thyroid 12/25/23 12/25/23 History
losartan 100 mg tablet 100 mg PO DAILY Blood Pressure 12/25/23 12/25/23 History
nifedipine 30 mg tablet,extended 30 mg PO HS Blood Pressure 12/25/23 12/25/23 History
release 24 hr (Procardia XL)
rosuvastatin 5 mg tablet 5 mg PO DAILY High Cholesterol 12/25/23 12/25/23 History
tramadol 50 mg tablet 50 mg PO BIDPRN PRN moderate pain 12/25/23 12/25/23 History
vitamin B complex-vitamin C 100 1 tab PO DAILY Supplement 12/25/23 12/25/23 History
mg-folic acid 1 mg tablet
(Dialyvite)
Review of Systems
-
All complete 12 point ROS have been inquired and found negative other than stated in HPI
All other systems: Negative unless noted
Physical Exam
Vital Signs
Vital Signs
Temp Pulse Resp BP Pulse Ox
97.7 F 66 16 128/62 95
12/26/23 07:55 12/26/23 08:59 12/25/23 21:46 12/26/23 08:59 12/26/23 08:00
Lab Results
WBC 5.9 10^3/uL (4.8-10.8) 12/26/23 05:46
RBC 3.17 10^6/uL (4.20-5.40) L 12/26/23 05:46
Hgb 10.1 g/dL (12.0-16.0) L 12/26/23 05:46
Hct 29.9 % (37.0-47.0) L 12/26/23 05:46
Plt Count 186 10^3/uL (130-400) 12/26/23 05:46
Sodium 138 mmol/L (135-145) 12/26/23 05:46
Potassium 4.6 mmol/L (3.5-5.1) 12/26/23 05:46
Chloride 104 mmol/L (98-107) 12/26/23 05:46
Carbon Dioxide 22 mmol/L (22-30) 12/26/23 05:46
BUN 54 mg/dl (7-17) H 12/26/23 05:46
Creatinine 7.0 mg/dL (0.6-1.0) H* 12/26/23 05:46
eGFR 5.28 12/26/23 05:46
Glucose 75 mg/dl (70-99) 12/26/23 05:46
Calcium 9.3 mg/dl (8.4-10.2) 12/26/23 05:46
Albumin 3.2 g/dl (3.5-5.0) L 12/26/23 05:46
CXR;
Lungs: No convincing focal infiltrates. No significant pleural effusions. No visualized pneumothorax.
Heart: Cardiac and mediastinal contours are unremarkable. No overt pulmonary vascular congestion.
Osseous structures: No acute abnormalities.
IMPRESSION:
No acute cardiopulmonary process.
Lumbar Xray:
IMPRESSION:
Mild to moderate multilevel degenerative changes of the thoracolumbar spine without evidence for acute fracture.
Physical Exam
General: Awake, Alert, Oriented, AOx3, No Distress and Nontoxic
HEENT: EOMI, Anicteric, Conjunctivae Clear, Facial Symmetry, Trachea Midline and No JVD
Respiratory: Clear, Normal Excursion and Nonlabored Respirations
Cardiac: S1/S2 and Regular Rate/Rhythm
Breast: Deferred by me
Abdomen: Soft, Nontender, Nondistended and Other (PD catheter in perfect position, no erythema or drainage)
Musculoskeletal: No Cyanosis and No Edema
Skin: No Rash
Neuro: Nonfocal/Grossly Intact
Psych: Mood/afflect pleasant, Insight/judgement good and Appropriate
Data Reviewed
-
Labs: Labs Reviewed by me and Discussed with Patient
Assessment/Plan
-
IMP:
Weakness possibly from severe hypothyroidism
ESRD on PD, [facility] 5days /week
Acute lower back pain
insomnia
Constipation
Essential hypertension
Hypercholesterolemia
Raynaud's disease
Chronic anemia of renal disease
Gout
Plan:
A/w gen weakness, TSH over 200
resume PD today manual 5 exchanges of 2lit FV mixed 1.5 and 2.5 as she seem dry side
home PD on cycler with FV2.5lit, 4 exchanges 5days per week
check PD fluid for infection with recent UTIs
BP stable , ok to resume meds
avoid constipation with PD
LT4 dose adjustment per primary
renal diet and FR
d/w pt , will contact her dialysis unit once pt provides ph no
d/w nursing
[2023-12-26] MEDS: SENOKOT 8.6 MG PO ×2 (12:52→20:27)
[2023-12-26 15:31] VITALS: BP 168/102; PULSE 84; O2SAT 99
--- NOTE | 2023-12-26 15:34 | CM ---
Patient with Hx ESRD on peritoneal dialysis with Dx Weakness secondary to hypothyroidism, Acute lower back pain, Constipation secondary to tramadol. Room air. PT & OT Evals pending.
Met with patient who resides alone in a 2 story house with 3 YESSICA and laundry in basement.
The patient has been independent in ADLs and ambulation.
The patient does her own PD at home through [facility].
The patient has no DME, prior VN or SNF.
PCP - Bill Scales
Pharmacy - [facility]
BAH Letter completed.
Plan follow up after seen by PT/OT.
[2023-12-26] MEDS: DULCOLAX 10 MG RECTAL (15:38)
[2023-12-26 17:30] VITALS: BP 177/91
[2023-12-26] MEDS: NSS (PRESERVATIVE FREE) 0.25 ML IV (18:19)
[2023-12-26] MEDS: ATIVAN 0.5 MG IV (18:19)
--- NOTE | 2023-12-26 18:44 | PTCARENOTE ---
Assumed care of patient at beginning of this shift from previous RN. PD given this afternoon as per Dr Espinoza's order; see worklist. Patient c/o no bm x3 days; miralax given as ordered. Senokot added and given. Patient still c/o feeling
constipation; suppository ordered and given. Patient only had one small hard bm. Dr Stevens made aware; soap suds enema ordered and given. Patient became very anxious; family requesting Xanax. Dr Stevens made aware; stat dose ativan ordered and given.
Patient now resting in bed. Next PD for 19:15. Will report off to hotel night auditor.
--- NOTE | 2023-12-26 20:42 | PTCARENOTE ---
Received pt from megan TELLEZ. Pt is AAOx3, drowsy. Pt with 1 liquid, loose BM, attends in place. PD provided per order, see worklist. Pt is laying in bed with call zapata in reach.
[2023-12-26 21:25] LABS: Body Fluid Mononuclear 75 %; Body Fluid Polymorphonuclear 25 %; Body Fluid Second Tech RLT; Body Fluid WBC 24 /CUMM
[2023-12-26 22:11] VITALS: BP 166/98
[2023-12-26] MEDS: ATIVAN 0.25 MG PO (22:18)
[2023-12-26] MEDS: PROCARDIA XL (EXTENDED RELEASE) 30 MG PO (22:19)
--- NOTE | 2023-12-27 01:16 | PTCARENOTE ---
Pt w/ liquid, loose BM. Pt still feels constipated, enema given with no relief. LINA Delatorre notified, fleet enema ordered (see MAR).
[2023-12-27] MEDS: FLEET PHOSPHATE ENEMA-ADULT 135 ML RECTAL (01:26)
[2023-12-27 02:39] VITALS: BMI 24.0
[2023-12-27 03:58] LABS: % Basophils 0.2 % (0-2); % Eosinophils 0.5 % (0-6); % Immature Granulocytes 0.4 % (0-0.5); % Lymphocytes 9.3 % (20.5-51.1); % Monocytes 6.8 % (1.7-9.3); % Neutrophils 82.8 % (42.2-75.2); Absolute Lymphocytes 0.8 10^3/uL (1.2-3.4); Absolute Monocytes 0.6 10^3/uL (0.1-0.6); Absolute Neutrophils 6.9 10^3/uL (1.4-6.5); Hematocrit 35.1 % (37.0-47.0); Mean Corp Hgb Conc. 34.2 g/dL (33.0-37.0); Mean Corpuscular Hgb 31.7 pg (27.0-31.0); Mean Corpuscular Volume 92.9 fL (81.0-99.0); Mean Platelet Volume 8.7 fL (7.4-10.4); Nucleated Red Blood Cells % 0 %; Platelet Count 220 10^3/uL (130-400); Red Blood Cell Count 3.78 10^6/uL (4.20-5.40); Red Cell Dist. Width 13.1 % (11.5-14.5); White Blood Cell Count 8.4 10^3/uL (4.8-10.8)
[2023-12-27 04:20] LABS: Blood Urea Nitrogen 47 mg/dl (7-17); Calcium 9.6 mg/dl (8.4-10.2); Carbon Dioxide 25 mmol/L (22-30); Chloride 99 mmol/L (98-107); Estimated Creatinine Clearance 5 ml/min; Glucose 141 mg/dl (70-99); Potassium 3.9 mmol/L (3.5-5.1); Sodium 137 mmol/L (135-145); eGFR 6.35
[2023-12-27] MEDS: SYNTHROID 50 MCG PO (06:38)
[2023-12-27 07:55] VITALS: BP 197/81
--- NOTE | 2023-12-27 09:01 | W.PN.HOSP.TC ---
Today's Communication/Plan
-
Increase levothyroxine. Continue aggressive bowel regimen and GI consult.
Assessment / Plan
Assessment / Plan
Physical exam:
General: Well Developed, Well Nourished and No Apparent Distress
HEENT: Normocephalic, Atraumatic and Moist Mucous Membranes
Respiratory: Clear to Auscultation; Negative Wheezes, Rales or Rhonchi
Cardiac: Regular Rhythm and S1/S2
GI: Soft, Nontender and Nondistended
Musculoskeletal: No Clubbing, No Cyanosis and No Edema
Neuro: Awake, Alert and Oriented
Psych: Calm
A/P:
# Weakness secondary to hypothyroidism, possibly altered thyroid function tests exacerbated by tramadol in the setting of ESRD
-TSH of 227, repeated TSH today and still 171. Discussed with patient I will give her a trial of increase levothyroxine given persistent elevation of TSH.
-COVID-negative
-Chest x-ray unremarkable
-Stop tramadol
-I have not been able to communicate with family-tried reaching out to son's phone number but could not.
-Continue levothyroxine but increased doses
-PT/OT
#Severe constipation
Tried bowel regimen including enema since last evening and unsuccessful
GI consult for further evaluation-discussed with GI via [place] text
Will continue with aggressive bowel regimen management
# Acute lower back pain with associated insomnia
-Tylenol
-Hold tramadol
-Check thoracic and lumbar x-ray to evaluate for compression fracture
-As needed Ativan at nighttime to help with sleep
ESRD on peritoneal dialysis
-Continue Lasix
-Nephrology consulted for peritoneal dialysis
Essential hypertension
-Continue nifedipine, losartan
Hypercholesterolemia
-Continue statin
Raynaud's disease
Chronic anemia of renal disease
-Hemoglobin stable
Gout
-Continue febuxostat
Full code
DVT prophylaxis�heparin
Renal diet
Anticipated Discharge: 24 - 48 hours
Subjective/Interval History
-
Date of Service: December 27, 2023
Patient very weak but more importantly very constipated despite trial of enemas. Abdominal discomfort. Nausea on and off. Afebrile
Objective Data
-
Labs:
Laboratory Results
12/27/23
03:50
WBC 8.4
Hgb 12.0
Hct 35.1 L
Plt Count 220
Sodium 137
Potassium 3.9
Chloride 99
Carbon Dioxide 25
BUN 47 H
Creatinine 6.0 H*
Glucose 141 H
Calcium 9.6
Vital Signs:
Vital Signs
Temp Pulse Resp BP Pulse Ox
98.3 F 93 14 166/98 95
12/26/23 23:21 12/26/23 22:11 12/26/23 22:11 12/26/23 22:11 12/26/23 22:34
I&O
12/26/23 12/27/23 12/28/23
06:59 06:59 06:59
Intake Total 200 / 200
Output Total 300 / 300 800 / 800
Balance -300 / -300 -600 / -600
[2023-12-27] MEDS: COZAAR 100 MG PO (09:15)
[2023-12-27] MEDS: TUMS 1 TABLET PO (09:15)
[2023-12-27] MEDS: NEPHROCAP 1 CAPSULE PO (09:15)
[2023-12-27] MEDS: ULORIC 40 MG PO (09:15)
[2023-12-27] MEDS: CRESTOR 5 MG PO (09:15)
[2023-12-27] MEDS: SENOKOT 8.6 MG PO ×2 (09:15→20:31)
[2023-12-27] MEDS: MIRALAX 17 GRAMS PO (09:15)
[2023-12-27] MEDS: VITAMIN D3 (cholecalciferol) 50 MCG PO (09:15)
[2023-12-27] MEDS: LASIX 80 MG PO (09:15)
[2023-12-27] MEDS: HEPARIN 5000 UNITS SC ×2 (09:16→20:30)
--- NOTE | 2023-12-27 10:10 | CM ---
Patient with Hx ESRD on peritoneal dialysis with Dx Weakness secondary to hypothyroidism, Acute lower back pain, Constipation secondary to tramadol. 12/26 Creatinine 6.0. Room air. PT Eval; No skilled PT needed. OT Eval; patient declined today.
Received callback from patient's son Joshua, who works at as outpatient PT;
the son confirms that his mother is very independent at home and manages herself well and is able to do her PD. She is active and drives.
Explained BAH Letter that patient signed yesterday.
Offered VN for nurse and son chooses [facility].
Son is available to provide transport home.
[facility]
Plan home with VN.
--- NOTE | 2023-12-27 10:13 | PTCARENOTE ---
Dr Stevens in to see patient and updated on issues with constipation/abd discomfort despite enemas; portable abd xray ordered and completed.
--- NOTE | 2023-12-27 10:21 | PTCARENOTE ---
Dr Hwang in to see patient and made aware of patient's c/o constipation despite multiple enemas; he stated he would order lactulose. Reviewed PD dwell/exchange time; he stated dwell time should be 5 hours and will update order since order currently
reads exchange time as 5 hours.
--- NOTE | 2023-12-27 10:43 | W.PN.NEPH.PH ---
Today's Communication / Plan
-
bowel regimen
Assessment/Plan
-
IMP:
Weakness possibly from severe hypothyroidism
ESRD on PD, [place] [place] 5days /week
Acute lower back pain
insomnia
Constipation
Essential hypertension
Hypercholesterolemia
Raynaud's disease
Chronic anemia of renal disease
Gout
Plan:
continue PD alternating solutions, 5hrs dwell times
on miralax
try lactulose today
can repeat soap suds enema again as well
-
-
Date of Service: December 27, 2023
CC / HPI / ROS
-
Chief Complaint:
ESRD
History of Present Illness:
PD in progress.
difficulty with this morning drain. ~1900
BP stable
constipated
Review of Systems:
no CP/SOB
Labs
-
Labs:
WBC 8.4 10^3/uL (4.8-10.8) 12/27/23 03:50
RBC 3.78 10^6/uL (4.20-5.40) L 12/27/23 03:50
Hgb 12.0 g/dL (12.0-16.0) 12/27/23 03:50
Hct 35.1 % (37.0-47.0) L 12/27/23 03:50
Plt Count 220 10^3/uL (130-400) 12/27/23 03:50
Sodium 137 mmol/L (135-145) 12/27/23 03:50
Potassium 3.9 mmol/L (3.5-5.1) 12/27/23 03:50
Chloride 99 mmol/L (98-107) 12/27/23 03:50
Carbon Dioxide 25 mmol/L (22-30) 12/27/23 03:50
BUN 47 mg/dl (7-17) H 12/27/23 03:50
Creatinine 6.0 mg/dL (0.6-1.0) H* 12/27/23 03:50
eGFR 6.35 12/27/23 03:50
Glucose 141 mg/dl (70-99) H 12/27/23 03:50
Calcium 9.6 mg/dl (8.4-10.2) 12/27/23 03:50
Albumin 3.2 g/dl (3.5-5.0) L 12/26/23 05:46
Physical Exam
-
Vital Signs:
Vital Signs
Temp Pulse Resp BP Pulse Ox
97.7 F 94 18 197/81 97
12/27/23 07:55 12/27/23 07:55 12/27/23 07:55 12/27/23 07:55 12/27/23 07:55
Cardiovascular:: Regular rate and rhythm
Respiratory:: Bilateral: Coarse
Lung Excursion:: Normal
Abdomen:: Nontender and Soft
Bowel Sounds:: Normal
Extremity Edema:: None: Bilateral:
--- NOTE | 2023-12-27 11:19 | PTCARENOTE ---
Patient had very large brown bm.
--- NOTE | 2023-12-27 11:29 | VNURNOTE ---
Home Health Liaison met with patient at bedside to discuss [facility] nurse/therapy, visits, schedule and homebound status. Patient is agreeable and understands that visits at home will be 2-3 x per week to assess and teach medical management. She
manages her own PD at home, 5 nights/week. Elena informed this author that as an outpt is managed by [facility] Nav[facility]. [employer] is DME co[employer] for PD supplies. She stated she might stay at son Joshua's house in [place] for a few days
after DC. [facility] brochure provided with contact information. Patient is aware that [facility] will contact them for start of care in 1-2 days after discharge from .
[facility] referral completed in [facility].
--- NOTE | 2023-12-27 13:22 | CON.GI ---
Addendum entered and electronically signed by Kimberly Esqueda DO 12/27/23 15:20:
The patient was seen and examined by me independently in collaboration with the nurse practitioner.
Past medical history/social history/medications/allergies/family history reviewed.
Lab data and imaging data reviewed.
Elena is an 88-year-old female past medical history of end-stage renal disease on peritoneal dialysis, hypertension, hyper per lipidemia admitted with generalized weakness and back pain found to have elevated TSH and bloating with abdominal
discomfort with large amount of stool seen on imaging. GI consulted for fecal impaction. Patient was given several enemas without relief, at time of evaluation patient had just fully evacuated her bowels and reports feeling significantly improved.
Recommendations
-increase daily bowel regimen, agree with miralax + senna BID or senna 2 tablets qHS. If refractory to this regimen, can discuss initiation of secretagogue agent in office follow-up
-office information left in discharge paperwork, advised to call to reestablish care for management of her chronic constipation.
-GI will sign off, please call with questions.
Original Note:
Consultation
-
Date/Time Consultation Requested: 12/27/23 0940
Date/Time Consultation Performed: 12/27/23 1320
Requesting Provider: Brian Stevens MD
Performing Provider: LINA Bosch
Reason for Consultation: constipation
Medical History
Chief Complaint / HPI
Chief Complaint: constipation
History of Present Illness:
Pt is a 88yo with hx ESRD on PD for last 3 months, hypercholesterolemia, HTN, Raynaud's with not feeling well and generalized weakness. Per ER review with family pt was noted with back pain radiating to left side with tramadol use. She was also
noted with TSH elevation on admission 227 and elevated OP TSH with start of thyroid replacement last week. Since admission she completed abd X ray with noted small amount of gas scattered throughout non distended SB loops. there was mild to
moderate colonic fecal burden with small amount of gas.
In reviewing with patient she admits to nausea without vomiting and periods of diarrhea with inability to control stools. She now admits to constipation on admission with several enema but finally this am with large stool. Last colonoscopy
[address] Guerrero with HP polyps and hemorrhoids bx neg microscopic colitis. Sister with colon CA.
Past Medical History
Past Medical History: HTN, Hypercholesterolemia, Renal Failure (ESRD on PD) and Other (Raynaud's)
Social History
Tobacco: Non-Smoker
Alcohol: Occasional
Drug: None
Living: Alone
Family History
Family History: Other (sister with colon CA)
Allergies / Home Medications
Allergy/AdvReac Type Severity Reaction Status Date / Time
aspirin Allergy SEE BELOW Verified 12/25/23 21:41
ibuprofen Allergy SEE BELOW Verified 12/25/23 21:41
iodine Allergy Hives Verified 12/25/23 21:41
Sulfa (Sulfonamide Allergy Vomiting Verified 05/17/20 14:48
Antibiotics)
narcotics Allergy Nausea Uncoded 05/17/20 14:48
�Medication �Instructions �Recorded
calcium carbonate (Calcium 500) 500 mg PO DAILY Supplement 12/25/23
cholecalciferol (vitamin D3) 50 50 mcg PO DAILY Supplement 12/25/23
mcg (2,000 unit) tablet (Vitamin
D3)
cranberry fruit 450 mg tablet 450 mg PO DAILY Supplement 12/25/23
(cranberry)
estradiol 2 mg (7.5 mcg/24 hour) 1 vag ring vaginal [id number] 12/25/23
vaginal ring (Estring) Hormonal Agent
febuxostat 40 mg tablet 40 mg PO DAILY HYPERURICEMIA 12/25/23
furosemide 80 mg tablet 80 mg PO DAILY Fluid 12/25/23
Retention/Swelling
levothyroxine 25 mcg tablet 50 mcg PO DAILY Thyroid 12/25/23
losartan 100 mg tablet 100 mg PO DAILY Blood Pressure 12/25/23
nifedipine 30 mg tablet,extended 30 mg PO HS Blood Pressure 12/25/23
release 24 hr (Procardia XL)
rosuvastatin 5 mg tablet 5 mg PO DAILY High Cholesterol 12/25/23
tramadol 50 mg tablet 50 mg PO BIDPRN PRN moderate pain 12/25/23
vitamin B complex-vitamin C 100 1 tab PO DAILY Supplement 12/25/23
mg-folic acid 1 mg tablet
(Dialyvite)
Review of Systems
-
History Source: Patient
Constitutional: Reports No Symptoms
EENT: Reports No Symptoms
Respiratory: Reports No Symptoms
Cardiac: Reports No Symptoms
Abdomen/GI: Reports Abdominal Pain, Nausea, Diarrhea (at times ) and Constipated
: Reports Other (current PD)
Musculoskeletal: Reports No Symptoms
Skin: Reports No Symptoms
Neurological: Reports Other (recent anxiety )
Endocrine: Reports No Symptoms
Hematologic/Lymphatic: Reports No Symptoms
Vital Signs
Temp Pulse Resp BP Pulse Ox
97.7 F 94 18 197/81 96
12/27/23 07:55 12/27/23 07:55 12/27/23 07:55 12/27/23 07:55 12/27/23 08:09
Physical Exam
Exam
General: Well Developed, Well Nourished and No Apparent Distress
HEENT: Normocephalic and Anicteric
Respiratory: Clear
Cardiac: Regular Rhythm
GI: Soft
Rectal: Other (pt refused rectal exam)
Musculoskeletal: No Clubbing and No Cyanosis
Skin: Warm and Dry
Neuro: Awake, Alert and AO x 3
Psych: Calm
Results
WBC 8.4 10^3/uL (4.8-10.8) 12/27/23 03:50
Hgb 12.0 g/dL (12.0-16.0) 12/27/23 03:50
Hct 35.1 % (37.0-47.0) L 12/27/23 03:50
MCV 92.9 fL (81.0-99.0) 12/27/23 03:50
Plt Count 220 10^3/uL (130-400) 12/27/23 03:50
Absolute Neuts (auto) 6.9 10^3/uL (1.4-6.5) H 12/27/23 03:50
Sodium 137 mmol/L (135-145) 12/27/23 03:50
Potassium 3.9 mmol/L (3.5-5.1) 12/27/23 03:50
Chloride 99 mmol/L (98-107) 12/27/23 03:50
Carbon Dioxide 25 mmol/L (22-30) 12/27/23 03:50
BUN 47 mg/dl (7-17) H 12/27/23 03:50
Creatinine 6.0 mg/dL (0.6-1.0) H* 12/27/23 03:50
Calcium 9.6 mg/dl (8.4-10.2) 12/27/23 03:50
Total Bilirubin 0.8 mg/dl (0.2-1.3) 12/26/23 05:46
AST 31 U/L (14-36) 12/26/23 05:46
ALT 19 U/L (0-35) 12/26/23 05:46
Alkaline Phosphatase 64 U/L (38-126) 12/26/23 05:46
Diagnostic Image Results:
12/27/23 Abdomen, Portable - 1 View
There is a small amount of gas scattered throughout nondistended small bowel loops. Mild to moderate colonic fecal burden, with a small amount of gas scattered throughout nondistended colon.
There is a nonspecific catheter superimposed on the abdomen. Calcific foci in the pelvis, most likely phlebolith calcifications.
Prior GI Procedures:
Colonoscopy: - Two 4 to 7 mm polyps in the distal sigmoid colon,
removed with a cold snare. Resected and retrieved.
- Normal mucosa in the entire examined colon. Several
biopsies were obtained for evaluation of microscopic
colitis which can diarrhea.
- Non-bleeding external hemorrhoids.
bx HP polyp, neg microscopic colitis
Assessment / Plan
-
Pt is a 88yo with hx HTN, ESRD on PD for last 3 months, hypercholesterolemia, Raynaud's with not feeling well and generalized weakness. Per ER review with family pt was noted with back pain radiating to left side with tramadol use. She was also
noted with TSH elevation on admission 227 and elevated OP TSH with start of thyroid replacement last week. Since admission she completed abd X ray with noted small amount of gas scattered throughout non distended SB loops. there was mild to
moderate colonic fecal burden with small amount of gas. Last colonoscopy [address] Guerrero with HP polyps and hemorrhoids bx neg microscopic colitis. Sister with colon CA.
-constipation with hx diarrhea possible overflow
-new hypothyroidism
-ESRD on PD x 3 months
other med problems:
-HTN
-hypercholesterolemia
- Raynaud's
-family hx colon CA- sister
-hx benign polyps
PLAN:
Etiology of symptoms related to constipation --with impaction that has now passed. Reviewed issues with diarrhea prior to admission may be overflow
s/p large stool this am -- pt declined repeat rectal exam to check for retained stool
agree with Miralax daily and senna BID
stressed to patient to continue bowel regiment on discharge
cont to correct Thyroids as adding to constipation issues
OP follow up with GI if continued issues
will sign off call with questions
-
-
Thank you for consultation and allowing me to participate in the patient's care. Please call the [employer] GI physician during the after hours with any questions or concerns.
[2023-12-27 15:08] VITALS: BP 125/75; BP 139/86; PULSE 86; O2SAT 93
[2023-12-27 23:22] VITALS: BP 144/75
[2023-12-27] MEDS: ATIVAN 0.25 MG PO (23:49)
[2023-12-27] MEDS: PROCARDIA XL (EXTENDED RELEASE) 30 MG PO (23:49)
--- NOTE | 2023-12-28 00:48 | PTCARENOTE ---
Pt had small soft stool. Pt refused Miralax but agreed to take Senokot. Pt stating her stomach 'is upset'. Pt tolerating PD well. Assessment care and vitals as charted.
[2023-12-28] MEDS: SYNTHROID 75 MCG PO (05:25)
[2023-12-28 05:47] VITALS: BMI 22.6
[2023-12-28 06:23] LABS: Hematocrit 34.3 % (37.0-47.0); Hemoglobin 11.9 g/dL (12.0-16.0); Mean Corp Hgb Conc. 34.7 g/dL (33.0-37.0); Mean Corpuscular Hgb 32.9 pg (27.0-31.0); Mean Corpuscular Volume 94.8 fL (81.0-99.0); Platelet Count 218 10^3/uL (130-400); Red Blood Cell Count 3.62 10^6/uL (4.20-5.40); Red Cell Dist. Width 12.8 % (11.5-14.5)
[2023-12-28 06:53] LABS: Blood Urea Nitrogen 38 mg/dl (7-17); Calcium 8.9 mg/dl (8.4-10.2); Carbon Dioxide 22 mmol/L (22-30); Chloride 98 mmol/L (98-107); Estimated Creatinine Clearance 5 ml/min; Glucose 109 mg/dl (70-99); Sodium 134 mmol/L (135-145); eGFR 7.21
[2023-12-28 08:00] VITALS: BP 116/66
[2023-12-28] MEDS: NEPHROCAP 1 CAPSULE PO (08:14)
[2023-12-28] MEDS: VITAMIN D3 (cholecalciferol) 50 MCG PO (08:14)
[2023-12-28] MEDS: ULORIC 40 MG PO (08:14)
[2023-12-28] MEDS: CRESTOR 5 MG PO (08:14)
[2023-12-28] MEDS: SENOKOT 8.6 MG PO (08:15)
[2023-12-28] MEDS: LASIX 80 MG PO (08:16)
[2023-12-28] MEDS: TUMS CHEWABLE TABLET 200 MG PO (08:16)
[2023-12-28] MEDS: HEPARIN 5000 UNITS SC (08:17)
[2023-12-28] MEDS: COZAAR 100 MG PO (08:17)
--- NOTE | 2023-12-28 08:54 | W.PN.HOSP.TC ---
Today's Communication/Plan
-
Discharge planning today.
Assessment / Plan
Assessment / Plan
Physical exam:
General: Well Developed, Well Nourished and No Apparent Distress
HEENT: Normocephalic, Atraumatic and Moist Mucous Membranes
Respiratory: Clear to Auscultation; Negative Wheezes, Rales or Rhonchi
Cardiac: Regular Rhythm and S1/S2
GI: Soft, Nontender and Nondistended
Musculoskeletal: No Clubbing, No Cyanosis and No Edema
Neuro: Awake, Alert and Oriented
Psych: Calm
A/P:
# Weakness secondary to hypothyroidism, possibly altered thyroid function tests exacerbated by tramadol in the setting of ESRD
-TSH of 227, repeated TSH today and still 171. Discussed with patient I will give her a trial of increase levothyroxine given persistent elevation of TSH. Currently tolerating increased doses of levothyroxine.
-COVID-negative
-Chest x-ray unremarkable
-Stop tramadol
-I have not been able to communicate with family-tried reaching out to son's phone number but could not.
-Continue levothyroxine but increased doses
-PT/OT
#Severe constipation
Tried bowel regimen including enema since last evening and unsuccessful
GI consult for further evaluation-discussed with GI via [place] text--> appreciated GI input.
Will continue with aggressive bowel regimen management
#Anxiety with panic attacks
She has been tolerating benzodiazepines here so we will send with brief course of Xanax as needed and encouraged to discuss with PCP if it is something recommended to continue down the road.
# Acute lower back pain with associated insomnia
-Tylenol
-Hold tramadol
-Check thoracic and lumbar x-ray to evaluate for compression fracture--> no evidence of fracture but degenerative disease
-As needed Ativan at nighttime to help with sleep
ESRD on peritoneal dialysis
-Continue Lasix
-Nephrology consulted for peritoneal dialysis
Essential hypertension
-Continue nifedipine, losartan
Hypercholesterolemia
-Continue statin
Raynaud's disease
Chronic anemia of renal disease
-Hemoglobin stable
Gout
-Continue febuxostat
Full code
DVT prophylaxis�heparin
Renal diet
Anticipated Discharge: Today
Subjective/Interval History
-
Date of Service: December 28, 2023
Patient feels better today. Patient is having bowel movements.
Objective Data
-
Labs:
Laboratory Results
12/28/23
06:05
WBC 6.0
Hgb 11.9 L
Hct 34.3 L
Plt Count 218
Sodium 134 L
Potassium 4.0
Chloride 98
Carbon Dioxide 22
BUN 38 H
Creatinine 5.4 H*
Glucose 109 H
Calcium 8.9
Vital Signs:
Vital Signs
Temp Pulse Resp BP Pulse Ox
98.3 F 82 16 116/62 99
12/28/23 08:00 12/28/23 08:17 12/28/23 08:00 12/28/23 08:17 12/28/23 08:00
I&O
12/27/23 12/28/23 12/29/23
06:59 06:59 06:59
Intake Total 200 / 200 100 / 100
Output Total 800 / 800 600 / 600
Balance -600 / -600 -500 / -500
--- NOTE | 2023-12-28 11:29 | W.DCSUMMARY ---
Discharge Summary
Discharge Data
Date of Admission: 12/25/23
Date of Discharge: 12/28/23
-
Pending Results: No
Hospital Course
Patient 88 years old female history of hypertension, hyperlipidemia, Raynaud's, end-stage renal disease on peritoneal dialysis, hypothyroidism, presented to the hospital with generalized weakness poor appetite and severe constipation. Patient was
on tramadol and she did not tolerate so we discontinued. X-ray of her back shows no evidence of fractures. Patient TSH was noted to be in the 200s. She attempted to increase doses of levothyroxine outpatient and did not tolerate but we attempted
again as inpatient and she was able to tolerate so we will continue with higher doses of levothyroxine. She will need to have follow-up thyroid function tests in about 6 weeks. Patient also had severe constipation and GI needed to be involved.
Etiology likely related to hypothyroidism and also recent narcotic use. After several attempts of medications and enemas, patient was able to move her bowels and we will continue with aggressive bowel regimen as outpatient. Nephrology followed her
throughout this hospital stay and continued with her peritoneal dialysis. Patient participated with PT and OT. She did have some episodes of panic attack for which she requires low-dose benzodiazepines. She will have a short course of
benzodiazepines and encouraged to discuss with primary care physician to see if this is something that she will require outpatient or they can come up with different strategies. Patient is hemodynamically stable and she is going to be discharged in
stable condition today.
Discharge duration: 35 minutes
Discharge Plan
-
Patient Disposition: Home (Routine Discharge)
Discharge Diagnosis/Procedures: Severe hypothyroidism. Severe constipation. Acute on chronic back pain. Anxiety, not specified. End-stage renal disease on peritoneal dialysis.
Diet: 2 Gram Sodium and Restrict fluids to 48 oz
Blood Work: Please PCP to order CBC, BMP within 1 week
Referrals:
Kimberly Esqueda, DO [Active] - (follow up with GI as needed if diarrhea or constipation persists )
Bill Scales MD [Family Provider] - in less than 1 week
Marissa Espinoza MD [Active] - in two to four weeks
Prescriptions:
New
polyethylene glycol 3350 [HealthyLax] 17 gram Powder In Packet
17 g PO DAILY Qty: 14 0RF
levothyroxine 75 mcg Tablet
75 mcg PO DAILY @ 0600 30 Days Qty: 30 0RF
sennosides [Senna Laxative] 8.6 mg Tablet
8.6 mg PO BID Qty: 14 0RF
alprazolam [Xanax] 0.25 mg tablet
0.25 mg PO BID PRN (Reason: anxiety) Qty: 14 0RF
Continued
nifedipine [Procardia XL] 30 mg Tablet Extended Release 24hr
30 mg PO HS
furosemide 80 mg Tablet
80 mg PO DAILY
calcium carbonate [Calcium 500] 500 mg calcium (1,250 mg) Tablet,Chewable
500 mg PO DAILY
Estring 2 mg (7.5 mcg /24 hour) Ring
1 vag ring VAGINAL [id number]
Patient Comments:
12/25/23: currently not in, patient scheduled to get it replaced on Monday
losartan 100 mg Tablet
100 mg PO DAILY
rosuvastatin 5 mg Tablet
5 mg PO DAILY
Dialyvite 100-1 mg Tablet
1 tab PO DAILY
cholecalciferol (vitamin D3) [Vitamin D3] 50 mcg (2,000 unit) Tablet
50 mcg PO DAILY
febuxostat 40 mg Tablet
40 mg PO DAILY
cranberry 450 mg Tablet
450 mg PO DAILY
Discontinued
tramadol 50 mg Tablet
50 mg PO BIDPRN PRN (Reason: moderate pain)
levothyroxine 25 mcg Tablet
50 mcg PO DAILY
Discharge Orders:
Discharge Patient (As Directed); Ordered 12/28/23
Ordered By: Brian Stevens
Discharge Date and Time
Discharge Date/Time: 12/28/23 12:49
Print Language: [place]
[2023-12-28 11:54] VITALS: BP 132/79
--- NOTE | 2023-12-28 11:57 | W.PN.NEPH.PH ---
Today's Communication / Plan
-
PD ordered
Assessment/Plan
-
IMP:
Weakness possibly from severe hypothyroidism
ESRD on PD, [facility] 5days /week
Acute lower back pain
insomnia
Constipation
Essential hypertension
Hypercholesterolemia
Raynaud's disease
Chronic anemia of renal disease
Gout
Plan:
continue PD alternating solutions, 5hrs dwell times
bowel regimen
can resume home PD as before on discharge. she should check in with her home nurse at the unit
-
-
Date of Service: December 28, 2023
CC / HPI / ROS
-
Chief Complaint:
ESRD
History of Present Illness:
PD in progress.
drain improved with large BM yesterday
BP stable
no longer constipated
Review of Systems:
no CP/SOB
Labs
-
Labs:
WBC 6.0 10^3/uL (4.8-10.8) 12/28/23 06:05
RBC 3.62 10^6/uL (4.20-5.40) L 12/28/23 06:05
Hgb 11.9 g/dL (12.0-16.0) L 12/28/23 06:05
Hct 34.3 % (37.0-47.0) L 12/28/23 06:05
Plt Count 218 10^3/uL (130-400) 12/28/23 06:05
Sodium 134 mmol/L (135-145) L 12/28/23 06:05
Potassium 4.0 mmol/L (3.5-5.1) 12/28/23 06:05
Chloride 98 mmol/L (98-107) 12/28/23 06:05
Carbon Dioxide 22 mmol/L (22-30) 12/28/23 06:05
BUN 38 mg/dl (7-17) H 12/28/23 06:05
Creatinine 5.4 mg/dL (0.6-1.0) H* 12/28/23 06:05
eGFR 7.21 12/28/23 06:05
Glucose 109 mg/dl (70-99) H 12/28/23 06:05
Calcium 8.9 mg/dl (8.4-10.2) 12/28/23 06:05
Albumin 3.2 g/dl (3.5-5.0) L 12/26/23 05:46
Physical Exam
-
Vital Signs:
Vital Signs
Temp Pulse Resp BP Pulse Ox
98.3 F 82 16 116/62 95
12/28/23 08:00 12/28/23 08:17 12/28/23 08:00 12/28/23 08:17 12/28/23 08:00
Cardiovascular:: Regular rate and rhythm
Respiratory:: Bilateral: Coarse
Lung Excursion:: Normal
Abdomen:: Nontender and Soft
Bowel Sounds:: Normal
Extremity Edema:: None: Bilateral:
--- NOTE | 2023-12-28 13:11 | PTCARENOTE ---
patient discharged to home. Patient was drained with PD and stated they wanted to go home with abdomen empty. Case texted Dr. Hwang and confirmed plan.
--- NOTE | 2023-12-28 14:36 | CM ---
Patient with Hx ESRD on peritoneal dialysis with Dx Weakness secondary to hypothyroidism, Acute lower back pain, Constipation secondary to tramadol. Room air. PT & OT; no needs.
Attempted to meet with patient/son and discovered patient was already discharged to home today.
Spoke with son Joshua; as patient changed from Observation to Inpatient status, provided IMM and copy sent to his email at [email or web address]. Son aware VN is set up. He provided transport home today.
Message to LEXI Cade re; d/c today.
Plan home today with VN.
== END 2023-12-28 12:49 | disposition home health service (06) | DRG 643 ==
LOC: IMU 11:01
PROVIDERS: Physician Assistant Medical; ADMITTING PHYSICIAN Hospitalist; ATTENDING PHYSICIAN Hospitalist; CONSULT PHYSICIAN Internal Medicine; EMERGENCY PHYSICIAN Student in an Organized Health Care Education/Training Program; FAMILY PHYSICIAN Family Medicine
DX: E03.9 Hypothyroidism, unspecified (principal); N18.6 End stage renal disease; I12.0 Hypertensive chronic kidney disease with stage 5 chronic kidney disease or end stage renal disease; K59.00 Constipation, unspecified; Z11.52 Encounter for screening for COVID-19; G47.00 Insomnia, unspecified; M54.50 Low back pain, unspecified; Z99.2 Dependence on renal dialysis; E78.00 Pure hypercholesterolemia, unspecified; I73.00 Raynaud's syndrome without gangrene; D64.9 Anemia, unspecified; M10.9 Gout, unspecified; F41.0 Panic disorder [episodic paroxysmal anxiety]; G89.29 Other chronic pain
CPT/HCPCS: 71046; 72072; 72100; 74018; 80048; 80053; 81003; 81015; 84443; 84484; 85025; 85027; 87015; 87070; 87086; 87205; 87811; 89051; 93005; 96360; 97162; 97166; 99285

== ENCOUNTER → 2024-01-04 09:48 | Outpatient (REF) | payer OTHER, SELFPAY ==
[2024-01-04 10:11] LABS: % Basophils 0.6 % (0-2); % Eosinophils 2.5 % (0-6); % Immature Granulocytes 0.7 % (0-0.5); % Lymphocytes 24.5 % (20.5-51.1); % Monocytes 15.2 % (1.7-9.3); % Neutrophils 56.5 % (42.2-75.2); Absolute Eosinophils 0.2 10^3/uL (0-0.7); Absolute Immature Granulocytes 0.1 10^3/uL (0-0.05); Absolute Lymphocytes 1.7 10^3/uL (1.2-3.4); Absolute Monocytes 1.1 10^3/uL (0.1-0.6); Absolute Neutrophils 3.9 10^3/uL (1.4-6.5); Hematocrit 30.1 % (37.0-47.0); Hemoglobin 10.1 g/dL (12.0-16.0); Mean Corp Hgb Conc. 33.6 g/dL (33.0-37.0); Mean Corpuscular Hgb 31.9 pg (27.0-31.0); Mean Platelet Volume 8.4 fL (7.4-10.4); Platelet Count 279 10^3/uL (130-400); Red Blood Cell Count 3.17 10^6/uL (4.20-5.40); Red Cell Dist. Width 12.3 % (11.5-14.5); White Blood Cell Count 6.9 10^3/uL (4.8-10.8)
[2024-01-04 11:16] LABS: Blood Urea Nitrogen 68 mg/dl (7-17); Iron 164 ug/dl (37-170)
[2024-01-04 11:25] LABS: Percent Saturation 84 % (20-50); Total Iron Binding Capacity 193 ug/dl (265-497)
== END ==
LOC: OIDL 09:48
PROVIDERS: ATTENDING PHYSICIAN Internal Medicine Hematology & Oncology; FAMILY PHYSICIAN Family Medicine
DX: D63.1 Anemia in chronic kidney disease (principal)
CPT/HCPCS: 36415; 82565; 82728; 83540; 83550; 84520; 85025

== ENCOUNTER → 2024-01-17 11:03 | Outpatient (REF) | payer OTHER, SELFPAY ==
[2024-01-17 13:02] LABS: % Basophils 1.1 % (0-2); % Eosinophils 3.2 % (0-6); % Immature Granulocytes 0.2 % (0-0.5); % Lymphocytes 23.9 % (20.5-51.1); % Monocytes 8.8 % (1.7-9.3); % Neutrophils 62.8 % (42.2-75.2); Absolute Basophils 0.1 10^3/uL (0-0.2); Absolute Eosinophils 0.2 10^3/uL (0-0.7); Absolute Lymphocytes 1.4 10^3/uL (1.2-3.4); Absolute Monocytes 0.5 10^3/uL (0.1-0.6); Absolute Neutrophils 3.6 10^3/uL (1.4-6.5); Hematocrit 29.3 % (37.0-47.0); Hemoglobin 9.5 g/dL (12.0-16.0); Mean Corp Hgb Conc. 32.4 g/dL (33.0-37.0); Mean Corpuscular Hgb 31.4 pg (27.0-31.0); Mean Corpuscular Volume 96.7 fL (81.0-99.0); Mean Platelet Volume 9.3 fL (7.4-10.4); Nucleated Red Blood Cells % 0 %; Platelet Count 227 10^3/uL (130-400); Red Blood Cell Count 3.03 10^6/uL (4.20-5.40); Red Cell Dist. Width 13.2 % (11.5-14.5); White Blood Cell Count 5.7 10^3/uL (4.8-10.8)
== END ==
LOC: REG 11:03
PROVIDERS: ATTENDING PHYSICIAN Internal Medicine Hematology & Oncology; FAMILY PHYSICIAN Family Medicine
DX: E03.9 Hypothyroidism, unspecified (principal); D63.1 Anemia in chronic kidney disease; N18.4 Chronic kidney disease, stage 4 (severe); D50.9 Iron deficiency anemia, unspecified; D51.9 Vitamin B12 deficiency anemia, unspecified
CPT/HCPCS: 36415; 84443; 85025

== ENCOUNTER → 2024-02-01 09:27 | Outpatient (REF) | payer OTHER, SELFPAY ==
[2024-02-01 09:42] LABS: % Basophils 0.5 % (0-2); % Eosinophils 3.7 % (0-6); % Immature Granulocytes 0.2 % (0-0.5); % Lymphocytes 23.7 % (20.5-51.1); % Monocytes 11.5 % (1.7-9.3); % Neutrophils 60.4 % (42.2-75.2); Absolute Eosinophils 0.2 10^3/uL (0-0.7); Absolute Lymphocytes 1.4 10^3/uL (1.2-3.4); Absolute Monocytes 0.7 10^3/uL (0.1-0.6); Absolute Neutrophils 3.5 10^3/uL (1.4-6.5); Hematocrit 32.2 % (37.0-47.0); Hemoglobin 10.4 g/dL (12.0-16.0); Mean Corp Hgb Conc. 32.3 g/dL (33.0-37.0); Mean Corpuscular Volume 99.1 fL (81.0-99.0); Mean Platelet Volume 8.3 fL (7.4-10.4); Platelet Count 222 10^3/uL (130-400); Red Blood Cell Count 3.25 10^6/uL (4.20-5.40); White Blood Cell Count 5.7 10^3/uL (4.8-10.8)
== END ==
LOC: OIDL 09:27
PROVIDERS: ATTENDING PHYSICIAN Internal Medicine Hematology & Oncology
DX: D63.1 Anemia in chronic kidney disease (principal)
CPT/HCPCS: 36415; 85025

== ENCOUNTER → 2024-02-01 11:38 | Outpatient (REF) | payer OTHER, SELFPAY | LOC: MRI 3T 11:38 | PROVIDERS: ATTENDING PHYSICIAN Psychiatry & Neurology Neurology; FAMILY PHYSICIAN Family Medicine | DX: M54.2 Cervicalgia (principal); M54.12 Radiculopathy, cervical region | CPT/HCPCS: 72141; 72146 ==

== ENCOUNTER → 2024-02-15 09:26 | Outpatient (REF) | payer OTHER, SELFPAY ==
[2024-02-15 09:36] LABS: % Basophils 0.7 % (0-2); % Eosinophils 3.1 % (0-6); % Lymphocytes 24.5 % (20.5-51.1); % Monocytes 10.3 % (1.7-9.3); % Neutrophils 61.4 % (42.2-75.2); Absolute Eosinophils 0.2 10^3/uL (0-0.7); Absolute Lymphocytes 1.4 10^3/uL (1.2-3.4); Absolute Monocytes 0.6 10^3/uL (0.1-0.6); Absolute Neutrophils 3.4 10^3/uL (1.4-6.5); Hemoglobin 11.1 g/dL (12.0-16.0); Mean Corp Hgb Conc. 31.7 g/dL (33.0-37.0); Mean Corpuscular Hgb 31.6 pg (27.0-31.0); Mean Corpuscular Volume 99.7 fL (81.0-99.0); Mean Platelet Volume 8.7 fL (7.4-10.4); Platelet Count 220 10^3/uL (130-400); Red Blood Cell Count 3.51 10^6/uL (4.20-5.40); Red Cell Dist. Width 13.1 % (11.5-14.5); White Blood Cell Count 5.6 10^3/uL (4.8-10.8)
[2024-02-15 11:02] LABS: Iron 120 ug/dl (37-170)
[2024-02-15 11:12] LABS: Percent Saturation 55 % (20-50); Total Iron Binding Capacity 215 ug/dl (265-497)
== END ==
LOC: OIDL 09:26
PROVIDERS: ATTENDING PHYSICIAN Internal Medicine Hematology & Oncology
DX: D63.1 Anemia in chronic kidney disease (principal)
CPT/HCPCS: 36415; 82728; 83540; 83550; 85025

== ENCOUNTER → 2024-02-29 09:18 | Outpatient (REF) | payer OTHER, SELFPAY ==
[2024-02-29 09:41] LABS: % Basophils 0.4 % (0-2); % Eosinophils 3.4 % (0-6); % Immature Granulocytes 0.2 % (0-0.5); % Lymphocytes 22.7 % (20.5-51.1); % Monocytes 10.1 % (1.7-9.3); % Neutrophils 63.2 % (42.2-75.2); Absolute Eosinophils 0.2 10^3/uL (0-0.7); Absolute Lymphocytes 1.2 10^3/uL (1.2-3.4); Absolute Monocytes 0.5 10^3/uL (0.1-0.6); Absolute Neutrophils 3.3 10^3/uL (1.4-6.5); Hematocrit 31.2 % (37.0-47.0); Hemoglobin 10.2 g/dL (12.0-16.0); Mean Corp Hgb Conc. 32.7 g/dL (33.0-37.0); Mean Corpuscular Hgb 31.7 pg (27.0-31.0); Mean Corpuscular Volume 96.9 fL (81.0-99.0); Platelet Count 217 10^3/uL (130-400); Red Blood Cell Count 3.22 10^6/uL (4.20-5.40); Red Cell Dist. Width 12.4 % (11.5-14.5); White Blood Cell Count 5.3 10^3/uL (4.8-10.8)
== END ==
LOC: OIDL 09:18
PROVIDERS: ATTENDING PHYSICIAN Internal Medicine Hematology & Oncology
DX: D63.1 Anemia in chronic kidney disease (principal)
CPT/HCPCS: 36415; 85025

== ENCOUNTER → 2024-03-13 09:09 | Outpatient (REF) | payer OTHER, SELFPAY ==
[2024-03-13 09:28] LABS: % Basophils 0.1 % (0-2); % Eosinophils 2.5 % (0-6); % Immature Granulocytes 0.3 % (0-0.5); % Lymphocytes 12.4 % (20.5-51.1); % Monocytes 12.3 % (1.7-9.3); % Neutrophils 72.4 % (42.2-75.2); Absolute Eosinophils 0.2 10^3/uL (0-0.7); Absolute Lymphocytes 1.2 10^3/uL (1.2-3.4); Absolute Monocytes 1.1 10^3/uL (0.1-0.6); Absolute Neutrophils 6.7 10^3/uL (1.4-6.5); Hemoglobin 10.1 g/dL (12.0-16.0); Mean Corp Hgb Conc. 32.6 g/dL (33.0-37.0); Mean Corpuscular Hgb 32.1 pg (27.0-31.0); Mean Corpuscular Volume 98.4 fL (81.0-99.0); Mean Platelet Volume 8.7 fL (7.4-10.4); Platelet Count 223 10^3/uL (130-400); Red Blood Cell Count 3.15 10^6/uL (4.20-5.40); Red Cell Dist. Width 14.6 % (11.5-14.5); White Blood Cell Count 9.3 10^3/uL (4.8-10.8)
[2024-03-13 10:31] LABS: Blood Urea Nitrogen 86 mg/dl (7-17)
== END ==
LOC: OIDL 09:09
PROVIDERS: ATTENDING PHYSICIAN Internal Medicine Hematology & Oncology
DX: D63.1 Anemia in chronic kidney disease (principal)
CPT/HCPCS: 36415; 82565; 82728; 84520; 85025

== ENCOUNTER → 2024-04-16 09:22 | Outpatient (REF) | payer OTHER, SELFPAY ==
[2024-04-16 10:06] LABS: % Basophils 0.4 % (0-2); % Eosinophils 3.9 % (0-6); % Immature Granulocytes 0.6 % (0-0.5); % Lymphocytes 20.4 % (20.5-51.1); % Monocytes 11.7 % (1.7-9.3); Absolute Eosinophils 0.3 10^3/uL (0-0.7); Absolute Immature Granulocytes 0.1 10^3/uL (0-0.05); Absolute Lymphocytes 1.7 10^3/uL (1.2-3.4); Absolute Neutrophils 5.3 10^3/uL (1.4-6.5); Hematocrit 27.1 % (37.0-47.0); Hemoglobin 8.7 g/dL (12.0-16.0); Mean Corp Hgb Conc. 32.1 g/dL (33.0-37.0); Mean Corpuscular Volume 99.6 fL (81.0-99.0); Mean Platelet Volume 8.5 fL (7.4-10.4); Platelet Count 252 10^3/uL (130-400); Red Blood Cell Count 2.72 10^6/uL (4.20-5.40); Red Cell Dist. Width 13.5 % (11.5-14.5); White Blood Cell Count 8.4 10^3/uL (4.8-10.8)
== END ==
LOC: OIDL 09:22
PROVIDERS: ATTENDING PHYSICIAN Internal Medicine Hematology & Oncology
DX: D63.1 Anemia in chronic kidney disease (principal)
CPT/HCPCS: 36415; 85025

== ENCOUNTER → 2024-05-15 10:43 | Outpatient (REF) | payer OTHER, SELFPAY ==
[2024-05-15 11:25] LABS: % Basophils 0.5 % (0-2); % Eosinophils 3.6 % (0-6); % Immature Granulocytes 0.1 % (0-0.5); % Lymphocytes 16.6 % (20.5-51.1); % Monocytes 9.7 % (1.7-9.3); % Neutrophils 69.5 % (42.2-75.2); Absolute Eosinophils 0.3 10^3/uL (0-0.7); Absolute Lymphocytes 1.3 10^3/uL (1.2-3.4); Absolute Monocytes 0.7 10^3/uL (0.1-0.6); Absolute Neutrophils 5.3 10^3/uL (1.4-6.5); Hematocrit 27.7 % (37.0-47.0); Hemoglobin 9.2 g/dL (12.0-16.0); Mean Corp Hgb Conc. 33.2 g/dL (33.0-37.0); Mean Corpuscular Hgb 32.3 pg (27.0-31.0); Mean Corpuscular Volume 97.2 fL (81.0-99.0); Mean Platelet Volume 8.7 fL (7.4-10.4); Platelet Count 253 10^3/uL (130-400); Red Blood Cell Count 2.85 10^6/uL (4.20-5.40); Red Cell Dist. Width 13.2 % (11.5-14.5); White Blood Cell Count 7.6 10^3/uL (4.8-10.8)
[2024-05-15 16:28] LABS: ALT (SGPT) 19 U/L (0-35); AST (SGOT) 25 U/L (14-36); Albumin 3.4 g/dl (3.5-5.0); Alkaline Phosphatase 65 U/L (38-126); Blood Urea Nitrogen 63 mg/dl (7-17); Calcium 8.7 mg/dl (8.4-10.2); Carbon Dioxide 23 mmol/L (22-30); Chloride 96 mmol/L (98-107); Glucose 107 mg/dl (70-99); Potassium 4.5 mmol/L (3.5-5.1); Sodium 133 mmol/L (135-145); Total Bilirubin 0.3 mg/dl (0.2-1.3); Total Protein 5.6 g/dl (6.3-8.2); eGFR 5.43
[2024-05-15 16:35] LABS: Total Iron Binding Capacity 220 ug/dl (265-497)
[2024-05-16 17:50] LABS: Iron 123 ug/dl (37-170); Percent Saturation 55 % (20-50)
== END ==
LOC: OIDL 10:43
PROVIDERS: ATTENDING PHYSICIAN Internal Medicine Hematology & Oncology; FAMILY PHYSICIAN Family Medicine
DX: D50.9 Iron deficiency anemia, unspecified (principal); D63.1 Anemia in chronic kidney disease; N18.4 Chronic kidney disease, stage 4 (severe); D51.9 Vitamin B12 deficiency anemia, unspecified
CPT/HCPCS: 36415; 80053; 82728; 83540; 83550; 85025

== ENCOUNTER → 2024-05-30 12:06 | Outpatient (REF) | payer OTHER, SELFPAY ==
[2024-05-30 10:44] LABS: % Basophils 0.5 % (0-2); % Eosinophils 3.4 % (0-6); % Immature Granulocytes 0.2 % (0-0.5); % Lymphocytes 19.1 % (20.5-51.1); % Monocytes 8.6 % (1.7-9.3); % Neutrophils 68.2 % (42.2-75.2); Absolute Eosinophils 0.2 10^3/uL (0-0.7); Absolute Lymphocytes 1.2 10^3/uL (1.2-3.4); Absolute Monocytes 0.5 10^3/uL (0.1-0.6); Absolute Neutrophils 4.2 10^3/uL (1.4-6.5); Hematocrit 30.7 % (37.0-47.0); Hemoglobin 9.9 g/dL (12.0-16.0); Mean Corp Hgb Conc. 32.2 g/dL (33.0-37.0); Mean Corpuscular Hgb 32.2 pg (27.0-31.0); Mean Platelet Volume 8.5 fL (7.4-10.4); Platelet Count 236 10^3/uL (130-400); Red Blood Cell Count 3.07 10^6/uL (4.20-5.40); Red Cell Dist. Width 13.2 % (11.5-14.5); White Blood Cell Count 6.2 10^3/uL (4.8-10.8)
== END ==
LOC: OIDL 12:06
PROVIDERS: ATTENDING PHYSICIAN Internal Medicine Hematology & Oncology
DX: N18.4 Chronic kidney disease, stage 4 (severe) (principal); D63.1 Anemia in chronic kidney disease; D50.9 Iron deficiency anemia, unspecified; D51.9 Vitamin B12 deficiency anemia, unspecified
CPT/HCPCS: 85025

== ENCOUNTER → 2024-05-30 12:24 | Outpatient (REF) | payer OTHER, SELFPAY | LOC: RAD 12:24 | PROVIDERS: ATTENDING PHYSICIAN Internal Medicine; FAMILY PHYSICIAN Family Medicine | DX: R19.8 Other specified symptoms and signs involving the digestive system and abdomen (principal); R15.9 Full incontinence of feces | CPT/HCPCS: 74019 ==

== ENCOUNTER → 2024-06-13 09:24 | Outpatient (REF) | payer OTHER, SELFPAY ==
[2024-06-13 09:55] LABS: % Basophils 0.5 % (0-2); % Eosinophils 3.2 % (0-6); % Immature Granulocytes 0.2 % (0-0.5); % Lymphocytes 20.4 % (20.5-51.1); % Monocytes 11.5 % (1.7-9.3); % Neutrophils 64.2 % (42.2-75.2); Absolute Eosinophils 0.2 10^3/uL (0-0.7); Absolute Lymphocytes 1.2 10^3/uL (1.2-3.4); Absolute Monocytes 0.7 10^3/uL (0.1-0.6); Absolute Neutrophils 3.8 10^3/uL (1.4-6.5); Hemoglobin 9.6 g/dL (12.0-16.0); Mean Corp Hgb Conc. 33.1 g/dL (33.0-37.0); Mean Corpuscular Hgb 32.2 pg (27.0-31.0); Mean Corpuscular Volume 97.3 fL (81.0-99.0); Mean Platelet Volume 8.4 fL (7.4-10.4); Platelet Count 229 10^3/uL (130-400); Red Blood Cell Count 2.98 10^6/uL (4.20-5.40); Red Cell Dist. Width 12.8 % (11.5-14.5)
== END ==
LOC: OIDL 09:24
PROVIDERS: ATTENDING PHYSICIAN Internal Medicine Hematology & Oncology
DX: N18.4 Chronic kidney disease, stage 4 (severe) (principal); D63.1 Anemia in chronic kidney disease
CPT/HCPCS: 36415; 85025

== ENCOUNTER → 2024-06-27 10:26 | Outpatient (REF) | payer OTHER, SELFPAY ==
[2024-06-27 10:31] LABS: % Basophils 0.7 % (0-2); % Eosinophils 3.4 % (0-6); % Neutrophils 47.9 % (42.2-75.2); Absolute Eosinophils 0.2 10^3/uL (0-0.7); Absolute Lymphocytes 2.4 10^3/uL (1.2-3.4); Absolute Monocytes 0.6 10^3/uL (0.1-0.6); Absolute Neutrophils 2.9 10^3/uL (1.4-6.5); Hematocrit 30.7 % (37.0-47.0); Mean Corp Hgb Conc. 32.6 g/dL (33.0-37.0); Mean Corpuscular Hgb 31.9 pg (27.0-31.0); Mean Corpuscular Volume 98.1 fL (81.0-99.0); Mean Platelet Volume 8.3 fL (7.4-10.4); Platelet Count 218 10^3/uL (130-400); Red Blood Cell Count 3.13 10^6/uL (4.20-5.40); Red Cell Dist. Width 12.9 % (11.5-14.5); White Blood Cell Count 6.1 10^3/uL (4.8-10.8)
== END ==
LOC: OIDL 10:26
PROVIDERS: ATTENDING PHYSICIAN Internal Medicine Hematology & Oncology
DX: N18.4 Chronic kidney disease, stage 4 (severe) (principal); D63.1 Anemia in chronic kidney disease; D50.9 Iron deficiency anemia, unspecified; D51.9 Vitamin B12 deficiency anemia, unspecified
CPT/HCPCS: 85025

== ENCOUNTER → 2024-07-10 12:51 | Outpatient (REF) | payer OTHER, SELFPAY ==
[2024-07-10 13:49] LABS: % Basophils 0.5 % (0-2); % Eosinophils 1.9 % (0-6); % Immature Granulocytes 0.1 % (0-0.5); % Lymphocytes 16.5 % (20.5-51.1); % Monocytes 9.6 % (1.7-9.3); % Neutrophils 71.4 % (42.2-75.2); Absolute Eosinophils 0.2 10^3/uL (0-0.7); Absolute Lymphocytes 1.3 10^3/uL (1.2-3.4); Absolute Monocytes 0.8 10^3/uL (0.1-0.6); Absolute Neutrophils 5.7 10^3/uL (1.4-6.5); Hematocrit 33.9 % (37.0-47.0); Hemoglobin 10.9 g/dL (12.0-16.0); Mean Corp Hgb Conc. 32.2 g/dL (33.0-37.0); Mean Corpuscular Hgb 32.1 pg (27.0-31.0); Mean Corpuscular Volume 99.7 fL (81.0-99.0); Mean Platelet Volume 8.5 fL (7.4-10.4); Platelet Count 243 10^3/uL (130-400); Red Cell Dist. Width 12.9 % (11.5-14.5)
== END ==
LOC: OIDL 12:51
PROVIDERS: ATTENDING PHYSICIAN Internal Medicine Hematology & Oncology; FAMILY PHYSICIAN Family Medicine
DX: D50.9 Iron deficiency anemia, unspecified (principal); D51.9 Vitamin B12 deficiency anemia, unspecified; N18.4 Chronic kidney disease, stage 4 (severe)
CPT/HCPCS: 36415; 85025

== ENCOUNTER → 2024-07-25 08:23 | Outpatient (REF) | payer OTHER, SELFPAY ==
[2024-07-25 08:36] LABS: % Basophils 0.5 % (0-2); % Eosinophils 2.2 % (0-6); % Immature Granulocytes 0.2 % (0-0.5); % Lymphocytes 31.2 % (20.5-51.1); % Monocytes 7.6 % (1.7-9.3); % Neutrophils 58.3 % (42.2-75.2); Absolute Eosinophils 0.1 10^3/uL (0-0.7); Absolute Lymphocytes 1.9 10^3/uL (1.2-3.4); Absolute Monocytes 0.5 10^3/uL (0.1-0.6); Absolute Neutrophils 3.5 10^3/uL (1.4-6.5); Hemoglobin 11.5 g/dL (12.0-16.0); Mean Corp Hgb Conc. 31.9 g/dL (33.0-37.0); Mean Corpuscular Hgb 31.6 pg (27.0-31.0); Mean Corpuscular Volume 98.9 fL (81.0-99.0); Mean Platelet Volume 8.7 fL (7.4-10.4); Platelet Count 215 10^3/uL (130-400); Red Blood Cell Count 3.64 10^6/uL (4.20-5.40); Red Cell Dist. Width 12.7 % (11.5-14.5); White Blood Cell Count 5.9 10^3/uL (4.8-10.8)
== END ==
LOC: OIDL 08:23
PROVIDERS: ATTENDING PHYSICIAN Internal Medicine Hematology & Oncology; FAMILY PHYSICIAN Family Medicine
DX: D50.9 Iron deficiency anemia, unspecified (principal); D51.9 Vitamin B12 deficiency anemia, unspecified; N18.4 Chronic kidney disease, stage 4 (severe)
CPT/HCPCS: 36415; 85025

== ENCOUNTER → 2024-07-28 11:20 | Outpatient (REF) | payer OTHER, SELFPAY | LOC: PAVMRI 11:20 | PROVIDERS: ATTENDING PHYSICIAN Orthopaedic Surgery; FAMILY PHYSICIAN Family Medicine | DX: M25.561 Pain in right knee (principal) | CPT/HCPCS: 73721 ==

== ENCOUNTER → 2024-08-08 09:27 | Outpatient (REF) | payer OTHER, SELFPAY ==
[2024-08-08 09:54] LABS: % Basophils 0.5 % (0-2); % Eosinophils 2.3 % (0-6); % Immature Granulocytes 0.2 % (0-0.5); % Lymphocytes 25.5 % (20.5-51.1); % Monocytes 11.1 % (1.7-9.3); % Neutrophils 60.4 % (42.2-75.2); Absolute Eosinophils 0.2 10^3/uL (0-0.7); Absolute Lymphocytes 1.7 10^3/uL (1.2-3.4); Absolute Monocytes 0.7 10^3/uL (0.1-0.6); Absolute Neutrophils 3.9 10^3/uL (1.4-6.5); Hematocrit 32.4 % (37.0-47.0); Hemoglobin 10.6 g/dL (12.0-16.0); Mean Corp Hgb Conc. 32.7 g/dL (33.0-37.0); Mean Corpuscular Hgb 31.5 pg (27.0-31.0); Mean Corpuscular Volume 96.1 fL (81.0-99.0); Mean Platelet Volume 8.7 fL (7.4-10.4); Platelet Count 221 10^3/uL (130-400); Red Blood Cell Count 3.37 10^6/uL (4.20-5.40); Red Cell Dist. Width 12.7 % (11.5-14.5); White Blood Cell Count 6.5 10^3/uL (4.8-10.8)
[2024-08-08 10:53] LABS: Iron 159 ug/dl (37-170)
[2024-08-08 11:29] LABS: Percent Saturation 77 % (20-50); Total Iron Binding Capacity 205 ug/dl (265-497)
== END ==
LOC: OIDL 09:27
PROVIDERS: ATTENDING PHYSICIAN Internal Medicine Hematology & Oncology; FAMILY PHYSICIAN Family Medicine
DX: D50.9 Iron deficiency anemia, unspecified (principal); N18.4 Chronic kidney disease, stage 4 (severe); D51.9 Vitamin B12 deficiency anemia, unspecified
CPT/HCPCS: 36415; 83540; 83550; 85025

== ENCOUNTER 2024-08-22 18:35 | Inpatient (IN) | payer OTHER, SELFPAY ==
[2024-08-22] VITALS (16 sets, daily range): BP systolic 114–149; BP diastolic 50–123; PULSE 74; BMI 23.9; BMI 24.3
[2024-08-22 12:06] LABS: % Basophils 0.7 % (0-2); % Eosinophils 1.9 % (0-6); % Immature Granulocytes 0.3 % (0-0.5); % Neutrophils 69.1 % (42.2-75.2); Absolute Eosinophils 0.1 10^3/uL (0-0.7); Absolute Lymphocytes 1.1 10^3/uL (1.2-3.4); Absolute Monocytes 0.5 10^3/uL (0.1-0.6); Absolute Neutrophils 4.1 10^3/uL (1.4-6.5); Hematocrit 34.3 % (37.0-47.0); Hemoglobin 11.1 g/dL (12.0-16.0); Mean Corp Hgb Conc. 32.4 g/dL (33.0-37.0); Mean Corpuscular Hgb 31.3 pg (27.0-31.0); Mean Corpuscular Volume 96.6 fL (81.0-99.0); Nucleated Red Blood Cells % 0 %; Platelet Count 246 10^3/uL (130-400); Red Blood Cell Count 3.55 10^6/uL (4.20-5.40); Red Cell Dist. Width 13.2 % (11.5-14.5); White Blood Cell Count 5.9 10^3/uL (4.8-10.8)
[2024-08-22 12:31] LABS: ALT (SGPT) 27 U/L (0-35); AST (SGOT) 26 U/L (14-36); Albumin 4.3 g/dl (3.5-5.0); Alkaline Phosphatase 67 U/L (38-126); Blood Urea Nitrogen 55 mg/dl (7-17); Calcium 9.7 mg/dl (8.4-10.2); Carbon Dioxide 28 mmol/L (22-30); Chloride 92 mmol/L (98-107); Glucose 101 mg/dl (70-99); Potassium 5.7 mmol/L (3.5-5.1); Sodium 132 mmol/L (135-145); Total Bilirubin 0.5 mg/dl (0.2-1.3); Total Protein 6.5 g/dl (6.3-8.2); eGFR 4.47
--- NOTE | 2024-08-22 12:55 | EDRN ---
Pt was using bathroom to change- states she didnt need a walker or assist. Upon return to stretcher I head a thud. Found pt lying on floor next to stretcher stating her legs ' gave out ' and she fell. No LOC. No CSP pain. Assisted to stretcher. VS
checked. Provider notified. CT ordered
[2024-08-22 13:13] LABS: Urine Albumin 3+ (Neg - Trace); Urine Bilirubin Negative (Negative); Urine Character Slightly Cloudy (Clear); Urine Color Yellow; Urine Glucose Negative (Negative); Urine Ketone Negative (Negative); Urine Leukocyte 3+ (Negative); Urine Nitrite Negative (Negative); Urine Occult Blood 2+ (Negative); Urine Urobilinogen Negative (Neg - 1+)
--- NOTE | 2024-08-22 14:00 | ED.GENMED ---
History of Present Illness
General
Chief Complaint: Fall
Time Seen by Provider: 08/22/24 13:55
History of Present Illness
History of Present Illness:
89-year-old female with history of chronic renal failure on peritoneal dialysis, hypertension, and hypothyroidism presents to the emergency department for evaluation of multiple falls today. She states for many years she has had 'jerking' movements
of the extremities when she moves, in the past few weeks it seems to be dramatically worse and makes it difficult for her to walk. She fell multiple times today and feels overall weak. She did strike her head at 1 point today. Denies any vision
changes, neck pain, extremity paresthesias, shortness of breath. She gets occasional chest pains but these are not exertional or positional, they seem to be more random.
Past History
Past History
ED Past Medical History: HTN, Hypercholesterolemia, Renal failure and Other (Raynauds)
ED Past Surgical History: Orthopedic
Social History
Tobacco: Non-smoker
Alcohol: None
Drug: None
Personal:
Living: alone
Employment: Retired
Family History
Family History: Other
Review of Systems
Review of Systems
Allergies reviewed?: Yes
All Other Systems: ROS reviewed and negative except as documented in HPI and ROS
Phy Exam
Physical Exam
Physical Exam:
GEN: Well appearing, NAD, WDWN
HEENT: Oral mucosa moist, no scleral icterus
Cardiac: Regular rate and rhythm, no murmur
Lung: No respiratory distress, no tachypnea
MSK: No gross deformity or injuries
Skin: Good color, no pallor or jaundice, no rashes
Neuro: AO x3, cranial nerves II through XII grossly intact, moves all extremities freely
Psych: Calm, cooperative
Course
Orders/Labs/Results
Orders:
Orders
08/22/24 11:44
Complete Blood Count/With Diff Urgent
Comprehensive Metabolic Panel Urgent
08/22/24 12:54
CT Head W/o Iv Contrast Urgent
Comment:
Reason For Exam: fall
Cervical Spine wo Contrast CT [CT Cervical Spine W/o Iv Contr] Urgent
Comment:
Reason For Exam: fall
08/22/24 12:57
Urinalysis Reflex To Culture Urgent
Date Specimen was Collected: 08/22/24
Time Specimen was Collected: 12:55
Urine Microscopic Reflex Cult Urgent
Urine Culture Urgent
YUE Source: U
Specimen Description:
Date Specimen was Collected: 08/22/24
Time Specimen was Collected: 12:55
08/22/24 13:28
Electrocardiogram (*1) Urgent
Reason for Study: Chest Pain
EKG- Treatment ONCE
08/22/24 15:22
Pt Eval And Treat Urgent
Activity Level: Ambulate
08/22/24 16:32
Sodium Zirconium Cyclosilicate [Lokelma] 10 gram PO NOW STA
Abnormal Lab Results
08/22/24 08/22/24
11:44 12:57
RBC 3.55 L 10^6/uL
(4.20-5.40)
Hgb 11.1 L g/dL
(12.0-16.0)
Hct 34.3 L %
(37.0-47.0)
MCH 31.3 H pg
(27.0-31.0)
MCHC 32.4 L g/dL
(33.0-37.0)
Absolute Lymphs (auto) 1.1 L 10^3/uL
(1.2-3.4)
Lymphocytes % 19.0 L %
(20.5-51.1)
Sodium 132 L mmol/L
(135-145)
Potassium 5.7 H mmol/L
(3.5-5.1)
Chloride 92 L mmol/L
(98-107)
BUN 55 H mg/dl
(7-17)
Creatinine 8.0 H* mg/dL
(0.6-1.0)
Glucose 101 H mg/dl
(70-99)
Ur Occult Blood Reflex 2+ A
(Negative)
Leukocyte Esterase Rfl 3+ A
(Negative)
Urine WBC (Reflex) >100 A /HPF
(0-5)
Urine Bacteria (Reflex) Few A
(Negative)
Urine Albumin (Reflex) 3+ A
(Neg - Trace)
08/22/24 11:44
08/22/24 11:44
Vital Signs
Initial and Last Documented VS:
Initial Vital Signs
Temp Pulse Resp BP Pulse Ox
97.7 F 78 18 140/71 97
08/22/24 11:29 08/22/24 11:29 08/22/24 11:29 08/22/24 11:29 08/22/24 11:29
Last Documented Vital Signs
Temp Pulse Resp BP Pulse Ox
97.7 F 71 14 120/53 93
08/22/24 11:29 08/22/24 15:52 08/22/24 15:52 08/22/24 15:52 08/22/24 15:52
MDM/Problems Addressed
MDM/Problems Addressed:
89-year-old female presents due to multiple falls. Workup reveals no acute abnormalities, unclear etiology to severe weakness. Certainly could be physical deconditioning. She was evaluated in the ED by physical therapy and not cleared for
discharge due to severe ambulatory dysfunction. Find some I have mild hyperkalemia and given Lokelma. Will admit to the hospitalist service for placement considerations
*Critical Care Note
Total Time (30-74mins, 75-104mins- exclusive of procedures): Not Applicable
ED Attending Note
-
Portions of this chart may have been created with voice recognition software.� Occasional wrong word or��sound alike� substitutions may have occurred due to the inherent limitations of voice recognition software.
Discharge Plan
Departure
Patient Disposition: Admit
Date of Disposition: 08/22/24
Time of Disposition: 16:52
Presentation/result/management discussed w/ accepting MD/DO: Hospitalist
Discharge Problem:
Ambulatory dysfunction, Frequent falls, Acute hyperkalemia
Prescriptions:
No Action
nifedipine [Procardia XL] 30 mg Tablet Extended Release 24hr
30 mg PO HS
furosemide 80 mg Tablet
80 mg PO DAILY
losartan 100 mg Tablet
100 mg PO DAILY
rosuvastatin 5 mg Tablet
5 mg PO DAILY
Dialyvite 100-1 mg Tablet
1 tab PO DAILY
cholecalciferol (vitamin D3) [Vitamin D3] 50 mcg (2,000 unit) Tablet
50 mcg PO DAILY
febuxostat 40 mg Tablet
40 mg PO DAILY
cranberry 450 mg Tablet
450 mg PO DAILY
loperamide 2 mg Tablet
2 mg PO BIDPRN PRN (Reason: diarrhea)
methenamine hippurate [Hiprex] 1 gram Tablet
1 g PO HS
ascorbic acid (vitamin C) [Vitamin C] 250 mg Tablet
250 mg PO DAILY
gabapentin 100 mg Capsule
100 mg PO HS
darbepoetin ida in polysorbat 40 mcg/0.4 mL Syringe
40 mcg IV Q14D
omeprazole 20 mg Tablet,Delayed Release (Dr/Ec)
20 mg PO QPM
levothyroxine [Synthroid] 112 mcg Tablet
112 mcg PO DAILY
Referrals:
UNKNOWN - PT NOT,INTERVIEWE [Family Provider] -
Interventions
Interventions:
*Risk Screen - Suicide Last Done: 08/22/24 11:29
*General Assessment Last Done: 08/22/24 11:29
*Neglect/Abuse Screening Last Done: 08/22/24 11:29
*ED- Fall Risk Assessment Last Done: 08/22/24 12:29
*ED COVID-19 Vaccine History Last Done: 08/22/24 13:27
ED-Musculoskeletal Assessment Last Done: 08/22/24 13:27
ED- Neurological Assessment Last Done: 08/22/24 13:27
Discharge Date and Time
Print Language: DANISH
[2024-08-22 14:14] LABS: Urine Squamous Cell >30 /LPF (Few)
[2024-08-22 14:16] LABS: Urine Amorphous Seen; Urine Red Blood Cell 0-2 /HPF (0-2)
[2024-08-22 14:17] LABS: Urine Bacteria Few (Negative); Urine White Cell >100 /HPF (0-5)
[2024-08-22] MEDS: LOKELMA 10 GRAM PO (16:38)
--- NOTE | 2024-08-22 17:01 | HPS.HSE ---
Addendum entered and electronically signed by Flor Garza MD 08/22/24 18:17:
I saw and examined the patient. The MECHANICS SUPERVISOR's note was reviewed and I agree with the note.
GENERAL: well developed, well nourished, female in no apparent distress
HEENT: NC/AT--no O2 requirements
HEART: regular rate and rhythm, +S1, +S2
LUNGS : clear to auscultation bilaterally
ABDOM: soft, nontender, nondistended, + bowel sounds
EXT: no cyanosis, clubbing, or edema
NEUROLOGIC: grossly intact--curiously NO twitching movements for me when I saw her
Frequent Falls-- due to 'Jerking Movements' not weakness--pt does not describe weakness--failed PT eval but don't think she needs SNF--strongly suspect metabolic cause of myoclonus ('jerking movements')--admit--I think pt needs HD instead of PD as
creat 8 and likely PD not effective--consult renal and neuro--meantime, will work up for other causes---TFTs, cortisol, B12, folate, iron, ferritin, ammonia, ca, mag, phos, CPK, vitamin D levels, etc
Hyperkalemia, mild--given lokelma--follow--Recheck potassium later this evening--Redose Lokelma if potassium remains elevated--Hold losartan and renal dose any other meds
ESRD on Peritoneal Dialysis--Consult Nephrology--Continue Lasix--do not believe this is effective
Anemia of Chronic Disease---Hgb at baseline
Essential Hypertension--Losartan on hold due to hyperkalemia--Continue nifedipine
Hyperlipidemia--Continue Crestor
Hypothyroidism--Continue levothyroxine--check TFTs
Recurrent Urinary Tract Infections--UA is NOT clean catch--no Hiprex--Continue Vitamin C
GERD--Continue Protonix
DVT proph--SC Heparin
Code Status-- DNR
Original Note:
Family Physician
-
Family Physician: INTERVIEWE UNKNOWN - PT NOT
Chief Complaint
-
Muscle Twitches
History of Present Illness
Patient is an 89 y/o female past medical history of ESRD on PD, HTN, Hypothyroidism who presents with muscle twitches resulting in multiple falls. Patient reports on going 'jerking movements' in her hands that frequently cause her to drop things
for the past year. Over the last few days she has developed similar 'jerking movements' in her legs that have resulted in several falls. She states she does not feel her legs are weak.
Medical History
Past Medical History
Past Medical History: Reports Other
Additional Past Medical History:
ESRD on Peritoneal Dialysis
Anemia of Chronic Disease
Essential Hypertension
Hyperlipidemia
Hypothyroidism
Chronic Diarrhea
Recurrent Urinary Tract Infections
GERD
Past Surgical History: Reports Other
Additional Past Surgical History:
Right Shoulder Rotator Cuff
Right MCL
Hand Surgery
PD Catheter
Social History
Tobacco: Non-smoker
Alcohol: None
Drug: None
Family History
Family History: Not pertinent
Allergies / Home Medications
Allergies reflects when Allergies were last updated in [facility].
Home Medications with original date entered in [facility]
Allergy/Medication List:
Allergies
Allergy/AdvReac Type Severity Reaction Status Date / Time
aspirin Allergy SEE BELOW Verified 08/22/24 11:29
ibuprofen Allergy SEE BELOW Verified 08/22/24 11:29
iodine Allergy Hives Verified 08/22/24 11:29
Sulfa (Sulfonamide Allergy Vomiting Verified 08/22/24 11:29
Antibiotics)
narcotics Allergy Nausea Uncoded 05/17/20 14:48
Home Medications
cholecalciferol (vitamin D3) 50 mcg (2,000 unit) tablet (Vitamin D3) 50 mcg PO DAILY Supplement 12/25/23
cranberry fruit 450 mg tablet (cranberry) 450 mg PO DAILY Supplement 12/25/23
febuxostat 40 mg tablet 40 mg PO DAILY HYPERURICEMIA 12/25/23
furosemide 80 mg tablet 80 mg PO DAILY Fluid Retention/Swelling 12/25/23
losartan 100 mg tablet 100 mg PO DAILY Blood Pressure 12/25/23
nifedipine 30 mg tablet,extended release 24 hr (Procardia XL) 30 mg PO HS Blood Pressure 12/25/23
rosuvastatin 5 mg tablet 5 mg PO DAILY High Cholesterol 12/25/23
vitamin B complex-vitamin C 100 mg-folic acid 1 mg tablet (Dialyvite) 1 tab PO DAILY Supplement 12/25/23
ascorbic acid (vitamin C) 250 mg tablet (Vitamin C) 250 mg PO DAILY 08/22/24
darbepoetin ida in polysorbat 40 mcg/0.4 mL in polysorbate injection syringe 40 mcg IV Q14D 08/22/24
gabapentin 100 mg capsule 100 mg PO HS 08/22/24
levothyroxine 112 mcg tablet (Synthroid) 112 mcg PO DAILY 08/22/24
loperamide 2 mg tablet 2 mg PO BIDPRN PRN diarrhea 08/22/24
methenamine hippurate 1 gram tablet 1 g PO HS 08/22/24
omeprazole 20 mg tablet,delayed release 20 mg PO QPM 08/22/24
Review of Systems
-
History Source: Patient
A 12 point ROS was completed and negative except as noted: Yes
Constitutional: Denies Fever or Chills
Respiratory: Denies Cough or Trouble Breathing
Cardiac: Denies Chest Pain or Palpitations
Abdomen/GI: Denies Abdominal Pain, Nausea, Vomiting, Diarrhea or Constipated
Physical Exam
Vital Signs
Vital Signs
Temp Pulse Resp BP Pulse Ox
97.7 F 71 14 120/53 93
08/22/24 11:29 08/22/24 15:52 08/22/24 15:52 08/22/24 15:52 08/22/24 15:52
Physical Exam
General: Well Developed, Well Nourished and No Apparent Distress
HEENT: NormoCephalic, Anicteric, Moist mucous membranes and Atraumatic
Respiratory: Clear and Non Labored Respirations; No Wheezes, Rales or Rhonchi
Cardiac: S1/S2 and Regular Rhythm; No Murmur
GI: Soft, Non Tender, Non Distended and Normal Bowel Sounds
Rectal: Deferred by Provider
Musculoskeletal: No Clubbing, No Cyanosis and No Edema
Skin: Warm and Dry; No Rash
Neuro: Awake, Alert, Oriented, No Motor Deficits and Other (Occsaional involuntary muscle twitches noted while testing muscle strenght)
Psych: Calm
Laboratory Results
-
08/22/24 11:44
08/22/24 11:44
Laboratory Results
Total Bilirubin 0.5 mg/dl (0.2-1.3) 08/22/24 11:44
AST 26 U/L (14-36) 08/22/24 11:44
ALT 27 U/L (0-35) 08/22/24 11:44
Alkaline Phosphatase 67 U/L (38-126) 08/22/24 11:44
Data Reviewed
-
Lab Data: Labs Reviewed by me
Impression/Plan
-
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
-Consult PT/OT
-Consult Neurology
-Correct electrolyte abnormalities
-Check additional labs including magnesium, phosphorus, TSH, cortisol, CPK, ammonia and vitamin D
-Patient would likely benefit from transitioning to hemodialysis
Hyperkalemia, mild
-Patient given Lokelma in ED
-Recheck potassium later this evening
-Redose Lokelma if potassium remains elevated
-Hold losartan
ESRD on Peritoneal Dialysis
-Consult Nephrology
-Continue Lasix
Anemia of Chronic Disease
-Hgb at baseline
Essential Hypertension
-Losartan on hold due to hyperkalemia
-Continue nifedipine
Hyperlipidemia
-Continue Crestor
Hypothyroidism
-Continue levothyroxine
Recurrent Urinary Tract Infections
-Continue Vitamin C
-Would avoid Hiprex given her renal impairment
GERD
-Continue Protonix
DVT proph: SC Heparin
Code Status: DNR
[2024-08-22 18:02] LABS: Magnesium 2.8 mg/dl (1.6-2.3); Phosphorus 6.9 mg/dl (2.5-4.5)
[2024-08-22 18:16] LABS: Creatine Phosphokinase 28 U/L (30-135)
[2024-08-22 18:32] LABS: Vitamin D, 25-OH*** 40.9 ng/mL (30-80)
[2024-08-22 18:46] LABS: TSH Reflex To Free T4 0.08 uIU/ml (0.47-4.68)
[2024-08-22 19:05] LABS: Vitamin B12 946 pg/ml (239-931)
[2024-08-22 19:13] LABS: Ammonia < 9 umol/L (9-30); Lactic Acid 1.2 mmol/L (0.7-2.0)
[2024-08-22 20:20] LABS: Folate > 20.0 ng/ml (2.76-20)
[2024-08-22] MEDS: HEPARIN 5000 UNITS SC (20:51)
[2024-08-22 21:17] LABS: Potassium 4.6 mmol/L (3.5-5.1)
[2024-08-22] MEDS: PROCARDIA XL (EXTENDED RELEASE) PO (22:14)
[2024-08-22] MEDS: NEURONTIN 100 MG PO (22:34)
--- NOTE | 2024-08-22 22:58 | PTCARENOTE ---
Patient arrived into IMU room 3346. Pt drowsy but oriented x4. CHG done. PD cath site intact. call center trainer ice cream server Dr. Erika davis texted for PD orders. MD aware of admission and aware there are no orders for PD. No orders received for PD; will
order tomorrow. Pt updated.
Admission questions complete. 2 RN skin check done and documented; coccyx red and blanchable, PD cath site intact, no other wounds. Encouraged to reposition self while in bed, pt agreed. Pt denies any pain. Able to swallow pill whole with water, no
s/s of aspiration. NSR on telemetry. Voided via bedpan. Jerky movements not present and have improved per pt since arriving to the ER.
Call zapata within reach; pt educated on use for assistance. Bed alarm set for safety as pt is a high fall risk and fell in the ER.
[2024-08-23] VITALS (17 sets, daily range): BP systolic 111–143; BP diastolic 45–74; PULSE 66–67; O2SAT 96; BMI 24.3
[2024-08-23] MEDS: SYNTHROID 112 MCG PO (05:50)
[2024-08-23 06:00] LABS: Hematocrit 28.9 % (37.0-47.0); Hemoglobin 9.6 g/dL (12.0-16.0); Mean Corp Hgb Conc. 33.2 g/dL (33.0-37.0); Mean Corpuscular Hgb 31.4 pg (27.0-31.0); Mean Corpuscular Volume 94.4 fL (81.0-99.0); Mean Platelet Volume 8.9 fL (7.4-10.4); Platelet Count 205 10^3/uL (130-400); Red Blood Cell Count 3.06 10^6/uL (4.20-5.40); Red Cell Dist. Width 13.1 % (11.5-14.5); White Blood Cell Count 6.7 10^3/uL (4.8-10.8)
[2024-08-23 06:52] LABS: Cortisol, Random 8.3 ug/dl
[2024-08-23 07:06] LABS: Blood Urea Nitrogen 65 mg/dl (7-17); Calcium 8.6 mg/dl (8.4-10.2); Carbon Dioxide 26 mmol/L (22-30); Chloride 94 mmol/L (98-107); Estimated Creatinine Clearance 3 ml/min; Glucose 86 mg/dl (70-99); Potassium 5.1 mmol/L (3.5-5.1); Sodium 129 mmol/L (135-145); eGFR 4.47
--- NOTE | 2024-08-23 08:35 | W.PN.HOSP.TC ---
Addendum entered and electronically signed by Janelle Dave MD 08/23/24 12:33:
# Hyponatremia
Original Note:
Today's Communication/Plan
-
see A/P
Assessment / Plan
Assessment / Plan
HPI: 89 y/o female past medical history of ESRD on PD, HTN, Hypothyroidism who presented with muscle twitches resulting in multiple falls. Patient reports on going 'jerking movements' in her hands that frequently cause her to drop things for the
past year. Over the last few days she has developed similar 'jerking movements' in her legs that have resulted in several falls. She states she does not feel her legs are weak.
A/P:
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
Corrected electrolyte abnormalities
Consult Neurology
Consult PT/OT
Noted TSH 0.08/ FT4 1.80, cont current Synthroid dose at 112 mcg and recc to repeat TSH reflex FT4 in 4-6 weeks with PCP
Noted cortisol level at 8.3, check stim test for adrenal response
Patient would likely benefit from transitioning to hemodialysis although she declines, renal consulted
# Hyperkalemia, mild, resolved
s/p Lokelma in ED
Holding losartan
Potassium level at 5.1 today
# ESRD on Peritoneal Dialysis
Patient would likely benefit from transitioning to hemodialysis although she declines, renal consulted
Continue Lasix
# Anemia of Chronic Disease
Hgb at baseline
# Essential Hypertension
Losartan on hold due to hyperkalemia
Continue nifedipine with hold parameter
# Hyperlipidemia
Continue Crestor
# Hypothyroidism
Noted TSH 0.08/ FT4 1.80
Cont current Synthroid dose at 112 mcg and recc to repeat TSH reflex FT4 in 4-6 weeks with PCP
# Recurrent Urinary Tract Infections
Continue Vitamin C
Would avoid Hiprex given her renal impairment
# GERD
Continue Protonix
DVT proph: SC Heparin
Code Status: DNR
total time spent 51 min
Anticipated Discharge: > 48 hours
Subjective/Interval History
-
Date of Service: August 23, 2024
Objective Data
-
Labs:
Laboratory Results
08/22/24 08/23/24 08/23/24
20:51 05:44 06:32
WBC 6.7
Hgb 9.6 L
Hct 28.9 L
Plt Count 205
Sodium Cancelled 129 L
Potassium 4.6 Cancelled 5.1
Chloride Cancelled 94 L
Carbon Dioxide Cancelled 26
BUN Cancelled 65 H
Creatinine Cancelled 8.0 H*
Glucose Cancelled 86
Calcium Cancelled 8.6
Vital Signs:
Vital Signs
Temp Pulse Resp BP Pulse Ox
36.7 C 61 15 118/57 98
08/23/24 03:00 08/23/24 06:00 08/23/24 06:00 08/23/24 06:00 08/23/24 06:00
Review of Systems
-
History Source: Patient
All other systems: Reviewed and negative
Physical Exam
-
General: Well Developed, Well Nourished, No Apparent Distress, Comfortable and Conversant
HEENT: Normocephalic, Atraumatic, Nose Appears Normal and Ears Appear Normal; Negative Oxygen
Respiratory: Clear to Auscultation and Non Labored Respirations; Negative Accessory Resp Muscle Use
Cardiac: Regular Rhythm and S1/S2
GI: Soft, Nontender, Nondistended and Normal Bowel Sounds
Skin: Warm and Dry
Neuro: Awake, Alert, Oriented and AO x 3
Psych: Calm and Intact Judgement/Insight
Data Reviewed
-
Labs: Labs Reviewed by me
[2024-08-23] MEDS: LASIX 80 MG PO (08:47)
[2024-08-23] MEDS: HEPARIN 5000 UNITS SC ×2 (08:47→20:10)
[2024-08-23] MEDS: VITAMIN C 250 MG PO (08:47)
[2024-08-23] MEDS: CRESTOR 5 MG PO (08:47)
[2024-08-23] MEDS: NEPHROCAP 1 CAPSULE PO (08:47)
[2024-08-23] MEDS: ULORIC 40 MG PO (08:49)
--- NOTE | 2024-08-23 08:52 | CON.NEURO ---
Consultation
Order
Date of Consultation: 08/23/24
Requesting Provider: Jenifer Mendoza PA-C
Reason for Consult: Abnormal movements
Neurology Consultation Note.
HPI: This is an 89-year-old woman who presented to [facility] on August 22, 2024 with recurrent falls and abnormal movements. According to the patient
She sustained several unwitnessed falls at home with associated minor head trauma prior to presentation. No reports of loss of consciousness, vertigo, change in memory, nausea or emesis.
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
ER VS: 140/71, 78, afebrile
PDMP: No recently prescribed medications
Labs: Creatinine�8.0, potassium�5.7, sodium�132�129, magnesium�2.8, hemoglobin�9.6, phosphorus�6.9, glucose�101, normal ammonia, CK, free T4, vitamin B12�946.
CT head wo contrast-diffuse cortical atrophy with mild nonspecific white matter changes.
PMH: CREST syndrome, ESRD on PD, HTN, DLP, GERD, anemia, hypothyroidism, gout, vitamin D deficiency, osteoporosis
PSH: Bilateral cataract extraction, right hand pyogenic granuloma resection,
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
FH: Noncontributory to current presentation
All: Sulfa's, iodine, atorvastatin,
ROS: Constitutional: Negative. Negative for chills, fever and unexpected weight change.
HENT: Positive for hearing impairment
Eyes: Negative. Negative for photophobia, pain and visual disturbance.
Respiratory: Negative for cough, choking and shortness of breath.
Cardiovascular: Negative for chest pain, palpitations and leg swelling.
Musculoskeletal: Positive chronic back pain
Skin: Negative for rash.
Allergic/Immunologic: Negative. Negative for immunocompromised state.
Neurological: Positive for intermittent myoclonus
Psychiatric/Behavioral: Positive for insomnia
General: Well developed. In no acute distress.
Cardio: Regular rate and rhythm without murmur. Extremities are without cyanosis or edema.
Neuro:
Mental Status: Alert, oriented to person, place, and date. Normal attention and recall. Good fund of knowledge. Follows complex requests across the midline. Comprehension, naming, and repetition intact.
Cranial Nerves: Pupils are equally round, surgical. EOMs full. Visual lara full to confrontation. Bilateral proptosis (chronic) no nystagmus. V1-V3 intact to light touch and pinprick bilaterally, symmetric. Face symmetric. Impaired hearing
on the left. The palate elevated well. SCMs and traps 5/5. Tongue midline. No dysarthria.
Motor: Normal bulk and tone. No pronator or arm drift. Strength 5/5 throughout except for left hip flexor 5-/5. No clonus.
Reflexes: 2+ throughout the upper extremities and 1+ knees. Plantar responses flexor bilaterally.
Sensory: Normal vibration at the toes
Coordination: No dysmetria, bilateral negative myoclonus
Gait: deferred
Assessment and Plan:
I. Metabolic myoclonus
II. Hyponatremia
III. Chronic lower back pain, recurrent falls
- Fall precautions
- Hyponatremia and uremia correction
- PT
- Additional testing will be considered if there is no clinical improvement following the correction of metabolic derangements.
- DVT prophylaxis
- Please recall neurology services any questions or concerns
I personally reviewed all radiology and labs along with past medical records pertinent to current medical problems. Total time spent in patient care is 60 minutes.
Thank you for allowing us to participate in the care of this patient. Please do not hesitate to contact us with any questions or concerns.
Subjective/Objective
Subjective Data
Date of Service: August 23, 2024
Objective Data
Vital Signs
Temp Pulse Resp BP Pulse Ox
36.4 C 61 15 118/57 98
08/23/24 07:40 08/23/24 06:00 08/23/24 06:00 08/23/24 06:00 08/23/24 06:00
Lab Results
08/23/24 05:44
08/23/24 06:32
Sodium 129 mmol/L (135-145) L 08/23/24 06:32
Potassium 5.1 mmol/L (3.5-5.1) 08/23/24 06:32
BUN 65 mg/dl (7-17) H 08/23/24 06:32
Glucose 86 mg/dl (70-99) 08/23/24 06:32
Calcium 8.6 mg/dl (8.4-10.2) 08/23/24 06:32
Phosphorus 6.9 mg/dl (2.5-4.5) H 08/22/24 11:44
Vitamin B12 946 pg/ml (239-931) H 08/22/24 11:44
Patient Allergies
aspirin Allergy (Verified 08/22/24 11:29)
SEE BELOW
ibuprofen Allergy (Verified 08/22/24 11:29)
SEE BELOW
iodine Allergy (Verified 08/22/24 11:29)
Hives
Sulfa (Sulfonamide Antibiotics) Allergy (Verified 08/22/24 11:29)
Vomiting
narcotics Allergy (Uncoded 05/17/20 14:48)
Nausea
Medications
-
Active Medications
Generic Name Dose Route Start Last Admin
Trade Name Freq PRN Reason Stop Dose Admin
Acetaminophen 650 mg 08/22/24 19:54
Acetaminophen 325 Mg Tablet PO 09/19/24 19:53
Q4HPRN PRN
mild pain/ fever>100.5F
Ascorbic Acid 250 mg 08/23/24 08:00
Ascorbic Acid 250 Mg Tablet PO 09/20/24 07:59
DAILY ZAYRA
Febuxostat 40 mg 08/23/24 08:00
Febuxostat (Non-Form) 40 Mg Tablet PO 09/20/24 07:59
DAILY ZAYRA
Furosemide 80 mg 08/23/24 08:00
Furosemide 80 Mg Tablet PO 09/20/24 07:59
DAILY ZAYRA
Gabapentin 100 mg 08/22/24 22:00 08/22/24 22:34
Gabapentin 100 Mg Capsule PO 09/19/24 21:59 100 mg
HS ZAYRA Administration
Heparin Sodium 5,000 units 08/22/24 20:00 08/22/24 20:51
Heparin 5,000 Units/Ml 1 Ml Vial SC 09/19/24 19:59 5,000 units
Q12 ZAYRA Administration
Levothyroxine Sodium 112 mcg 08/23/24 06:00 08/23/24 05:50
Levothyroxine 112 Mcg Tablet PO 09/20/24 05:59 112 mcg
DAILY @ 0600 ZAYRA Administration
Nifedipine 30 mg 08/22/24 22:00 08/22/24 22:14
Nifedipine 30 Mg Extended Release Tablet PO 09/19/24 21:59 Not Given
HS ZAYRA
Pantoprazole Sodium 40 mg 08/23/24 18:00
Pantoprazole 40 Mg Delayed Release Tablet PO 09/20/24 17:59
QPM ZAYRA
Rosuvastatin Calcium 5 mg 08/23/24 08:00
Rosuvastatin (Crestor) 5 Mg Tablet PO 09/20/24 07:59
DAILY ZAYRA
Sodium Chloride 0 flush 08/22/24 20:00
Sodium Chloride 0.9% (Flush) Syringe IV 09/19/24 19:59
PER PROTOCOL ZAYRA
Vitamin B Complex/Vit C/Folic Acid 1 capsule 08/23/24 08:00
Renal Cap (Nephrocap) Capsule PO 09/20/24 07:59
DAILY ZAYRA
Home Medications
�Medication �Instructions �Recorded
cholecalciferol (vitamin D3) 50 50 mcg PO DAILY Supplement 12/25/23
mcg (2,000 unit) tablet (Vitamin
D3)
cranberry fruit 450 mg tablet 450 mg PO DAILY Supplement 12/25/23
(cranberry)
febuxostat 40 mg tablet 40 mg PO DAILY HYPERURICEMIA 12/25/23
furosemide 80 mg tablet 80 mg PO DAILY Fluid 12/25/23
Retention/Swelling
losartan 100 mg tablet 100 mg PO DAILY Blood Pressure 12/25/23
nifedipine 30 mg tablet,extended 30 mg PO HS Blood Pressure 12/25/23
release 24 hr (Procardia XL)
rosuvastatin 5 mg tablet 5 mg PO DAILY High Cholesterol 12/25/23
vitamin B complex-vitamin C 100 1 tab PO DAILY Supplement 12/25/23
mg-folic acid 1 mg tablet
(Dialyvite)
ascorbic acid (vitamin C) 250 mg 250 mg PO DAILY Supplement 08/22/24
tablet (Vitamin C)
darbepoetin ida in polysorbat 40 40 mcg IV Q14D 08/22/24
mcg/0.4 mL in polysorbate
injection syringe
gabapentin 100 mg capsule 100 mg PO HS Neurological Condition 08/22/24
levothyroxine 112 mcg tablet 112 mcg PO DAILY Thyroid 08/22/24
(Synthroid)
loperamide 2 mg tablet 2 mg PO BIDPRN PRN diarrhea 08/22/24
methenamine hippurate 1 gram tablet 1 g PO HS Infection 08/22/24
omeprazole 20 mg tablet,delayed 20 mg PO QPM Gastrointestinal Issue 08/22/24
release
Vital Signs and Labs
-
Vital Signs and Labs:
Vital Signs
Temp Pulse Resp BP Pulse Ox
36.4 C 61 15 118/57 98
08/23/24 07:40 08/23/24 06:00 08/23/24 06:00 08/23/24 06:00 08/23/24 06:00
Lab Results
08/23/24 05:44
08/23/24 06:32
Sodium 129 mmol/L (135-145) L 08/23/24 06:32
Potassium 5.1 mmol/L (3.5-5.1) 08/23/24 06:32
BUN 65 mg/dl (7-17) H 08/23/24 06:32
Glucose 86 mg/dl (70-99) 08/23/24 06:32
Calcium 8.6 mg/dl (8.4-10.2) 08/23/24 06:32
Phosphorus 6.9 mg/dl (2.5-4.5) H 08/22/24 11:44
Vitamin B12 946 pg/ml (239-931) H 08/22/24 11:44
Medications
-
Medications:
Generic Name Dose Route Start Last Admin
Trade Name Freq PRN Reason Stop Dose Admin
Acetaminophen 650 mg 08/22/24 19:54
Acetaminophen 325 Mg Tablet PO 09/19/24 19:53
Q4HPRN PRN
mild pain/ fever>100.5F
Ascorbic Acid 250 mg 08/23/24 08:00
Ascorbic Acid 250 Mg Tablet PO 09/20/24 07:59
DAILY ZAYRA
Febuxostat 40 mg 08/23/24 08:00
Febuxostat (Non-Form) 40 Mg Tablet PO 09/20/24 07:59
DAILY ZAYRA
Furosemide 80 mg 08/23/24 08:00
Furosemide 80 Mg Tablet PO 09/20/24 07:59
DAILY ZAYRA
Gabapentin 100 mg 08/22/24 22:00 08/22/24 22:34
Gabapentin 100 Mg Capsule PO 09/19/24 21:59 100 mg
HS ZAYRA Administration
Heparin Sodium 5,000 units 08/22/24 20:00 08/22/24 20:51
Heparin 5,000 Units/Ml 1 Ml Vial SC 09/19/24 19:59 5,000 units
Q12 ZAYRA Administration
Levothyroxine Sodium 112 mcg 08/23/24 06:00 08/23/24 05:50
Levothyroxine 112 Mcg Tablet PO 09/20/24 05:59 112 mcg
DAILY @ 0600 ZAYRA Administration
Nifedipine 30 mg 08/22/24 22:00 08/22/24 22:14
Nifedipine 30 Mg Extended Release Tablet PO 09/19/24 21:59 Not Given
HS ZAYRA
Pantoprazole Sodium 40 mg 08/23/24 18:00
Pantoprazole 40 Mg Delayed Release Tablet PO 09/20/24 17:59
QPM ZAYRA
Rosuvastatin Calcium 5 mg 08/23/24 08:00
Rosuvastatin (Crestor) 5 Mg Tablet PO 09/20/24 07:59
DAILY ZAYRA
Sodium Chloride 0 flush 08/22/24 20:00
Sodium Chloride 0.9% (Flush) Syringe IV 09/19/24 19:59
PER PROTOCOL ZAYRA
Vitamin B Complex/Vit C/Folic Acid 1 capsule 08/23/24 08:00
Renal Cap (Nephrocap) Capsule PO 09/20/24 07:59
DAILY ZAYRA
Home Medications
-
Home Medications
cholecalciferol (vitamin D3) 50 mcg (2,000 unit) tablet (Vitamin D3) 50 mcg PO DAILY Supplement 12/25/23
cranberry fruit 450 mg tablet (cranberry) 450 mg PO DAILY Supplement 12/25/23
febuxostat 40 mg tablet 40 mg PO DAILY HYPERURICEMIA 12/25/23
furosemide 80 mg tablet 80 mg PO DAILY Fluid Retention/Swelling 12/25/23
losartan 100 mg tablet 100 mg PO DAILY Blood Pressure 12/25/23
nifedipine 30 mg tablet,extended release 24 hr (Procardia XL) 30 mg PO HS Blood Pressure 12/25/23
rosuvastatin 5 mg tablet 5 mg PO DAILY High Cholesterol 12/25/23
vitamin B complex-vitamin C 100 mg-folic acid 1 mg tablet (Dialyvite) 1 tab PO DAILY Supplement 12/25/23
ascorbic acid (vitamin C) 250 mg tablet (Vitamin C) 250 mg PO DAILY Supplement 08/22/24
darbepoetin ida in polysorbat 40 mcg/0.4 mL in polysorbate injection syringe 40 mcg IV Q14D 08/22/24
gabapentin 100 mg capsule 100 mg PO HS Neurological Condition 08/22/24
levothyroxine 112 mcg tablet (Synthroid) 112 mcg PO DAILY Thyroid 08/22/24
loperamide 2 mg tablet 2 mg PO BIDPRN PRN diarrhea 08/22/24
methenamine hippurate 1 gram tablet 1 g PO HS Infection 08/22/24
omeprazole 20 mg tablet,delayed release 20 mg PO QPM Gastrointestinal Issue 08/22/24
--- NOTE | 2024-08-23 09:15 | PTCARENOTE ---
Patient recevied from shift superintendent. Patient resting comfortably in bed. AAO, VSS. No events noted overnight. No complaints of pain at this time. MD aware of need to start PD, will assess patient first then place orders. Cortisol test ordered
for this AM. PT/OT saw patient and is now in the chair. Patient continues with 'jerking motion' more in the arms than the legs. No other testing scheduled at this time. Call zapata in reach.
--- NOTE | 2024-08-23 09:44 | W.CON.NEPH ---
Consultation
-
Date/Time Consultation Requested: August 2024 at 9 PM
Date/Time Consultation Performed: August 23, 2024 at 9 AM
Requesting Provider: Dr. Dave
Performing Provider: Dr. James
Reason for Consultation: End-stage renal disease
Medical History
-
Chief Complaint: Jerking limbs
History of Present Illness:
89 y/o female past medical history of ESRD on PD, HTN, Hypothyroidism who presents with muscle twitches resulting in multiple falls. Patient reports on going 'jerking movements' in her hands that frequently cause her to drop things for the past
year.
We are consulted for end-stage renal disease on peritoneal dialysis
She previously followed with Dr. Lam but now follows with Robb and Dr. Pop since starting in dialysis and been on peritoneal dialysis for about 1 year
She does a cycler at night 5 exchanges 10 hours 2.5% dextrose
Past Medical History
hypertension, ESRD on peritoneal dialysis, hypercholesterolemia, Raynaud's, hyperuricemia
Past Surgical History: Other (PD catheter placement)
Social History
Tobacco: Non-Smoker
Alcohol: None
Drug: None
Living: Alone
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
Family History
brothers and sister with kidney disease
Allergies / Home Medications
Allergy/AdvReac Type Severity Reaction Status Date / Time
aspirin Allergy SEE BELOW Verified 08/22/24 11:29
ibuprofen Allergy SEE BELOW Verified 08/22/24 11:29
iodine Allergy Hives Verified 08/22/24 11:29
Sulfa (Sulfonamide Allergy Vomiting Verified 08/22/24 11:29
Antibiotics)
narcotics Allergy Nausea Uncoded 05/17/20 14:48
�Medication �Instructions �Recorded �Confirmed �Type
cholecalciferol (vitamin D3) 50 50 mcg PO DAILY Supplement 12/25/23 08/22/24 History
mcg (2,000 unit) tablet (Vitamin
D3)
cranberry fruit 450 mg tablet 450 mg PO DAILY Supplement 12/25/23 08/22/24 History
(cranberry)
febuxostat 40 mg tablet 40 mg PO DAILY HYPERURICEMIA 12/25/23 08/22/24 History
furosemide 80 mg tablet 80 mg PO DAILY Fluid 12/25/23 08/22/24 History
Retention/Swelling
losartan 100 mg tablet 100 mg PO DAILY Blood Pressure 12/25/23 08/22/24 History
nifedipine 30 mg tablet,extended 30 mg PO HS Blood Pressure 12/25/23 08/22/24 History
release 24 hr (Procardia XL)
rosuvastatin 5 mg tablet 5 mg PO DAILY High Cholesterol 12/25/23 08/22/24 History
vitamin B complex-vitamin C 100 1 tab PO DAILY Supplement 12/25/23 08/22/24 History
mg-folic acid 1 mg tablet
(Dialyvite)
ascorbic acid (vitamin C) 250 mg 250 mg PO DAILY Supplement 08/22/24 08/22/24 History
tablet (Vitamin C)
darbepoetin ida in polysorbat 40 40 mcg IV Q14D 08/22/24 08/22/24 History
mcg/0.4 mL in polysorbate
injection syringe
gabapentin 100 mg capsule 100 mg PO HS Neurological Condition 08/22/24 08/22/24 History
levothyroxine 112 mcg tablet 112 mcg PO DAILY Thyroid 08/22/24 08/22/24 History
(Synthroid)
loperamide 2 mg tablet 2 mg PO BIDPRN PRN diarrhea 08/22/24 08/22/24 History
methenamine hippurate 1 gram tablet 1 g PO HS Infection 08/22/24 08/22/24 History
omeprazole 20 mg tablet,delayed 20 mg PO QPM Gastrointestinal Issue 08/22/24 08/22/24 History
release
Review of Systems
-
And then lower extremity jerking movements with mild nausea
All other systems: Negative unless noted
Physical Exam
Vital Signs
Vital Signs
Temp Pulse Resp BP Pulse Ox
97.5 F 64 15 111/46 98
08/23/24 07:40 08/23/24 08:47 08/23/24 06:00 08/23/24 08:47 08/23/24 06:00
Lab Results
WBC 6.7 10^3/uL (4.8-10.8) 08/23/24 05:44
RBC 3.06 10^6/uL (4.20-5.40) L 08/23/24 05:44
Hgb 9.6 g/dL (12.0-16.0) L 08/23/24 05:44
Hct 28.9 % (37.0-47.0) L 08/23/24 05:44
Plt Count 205 10^3/uL (130-400) 08/23/24 05:44
Sodium 129 mmol/L (135-145) L 08/23/24 06:32
Potassium 5.1 mmol/L (3.5-5.1) 08/23/24 06:32
Chloride 94 mmol/L (98-107) L 08/23/24 06:32
Carbon Dioxide 26 mmol/L (22-30) 08/23/24 06:32
BUN 65 mg/dl (7-17) H 08/23/24 06:32
Creatinine 8.0 mg/dL (0.6-1.0) H* 08/23/24 06:32
eGFR 4.47 08/23/24 06:32
Glucose 86 mg/dl (70-99) 08/23/24 06:32
Calcium 8.6 mg/dl (8.4-10.2) 08/23/24 06:32
Phosphorus 6.9 mg/dl (2.5-4.5) H 08/22/24 11:44
Albumin 4.3 g/dl (3.5-5.0) 08/22/24 11:44
Physical Exam
General no acute distress
HEENT no cephalic atraumatic extraocular muscle intact no scleral icterus no JVD neck supple
lungs clear to auscultation bilateral
heart regular S1-S2 positive
abdomen soft nontender positive bowel sounds
extremities no edema pulses present bilateral
Neurologically nonfocal alert and oriented x 3/asterixis
Skin no lesions no abrasions no petechiae
Psych normal affect no bizarre behavior
Data Reviewed
-
CT Scan: Image Personally Visualized and interpreted
Labs: Labs Reviewed by me, Discussed with Nurse and Discussed with Patient
Assessment/Plan
-
89 y/o female past medical history of ESRD on PD, HTN, Hypothyroidism who presents with muscle twitches resulting in multiple falls. Patient reports on going 'jerking movements' in her hands that frequently cause her to drop things for the past
year.
We are consulted for end-stage renal disease on peritoneal dialysis
She previously followed with Dr. Lam but now follows with Robb and Dr. Pop since starting in dialysis and been on peritoneal dialysis for about 1 year
She does a cycler at night 5 exchanges 10 hours 2.5% dextrose
IMP:
'Jerking 'of her hands and legs chronically upper extremities but recently lower extremities associated with nausea
ESRD on PD, [facility] [place] 5days /week recently increased to 7 days a week
Essential hypertension
Hypercholesterolemia
Raynaud's disease
Chronic anemia of renal disease
Gout
Plan:
I suspect her symptoms of asterixis particular and nausea more recently is associated to poor clearance on peritoneal dialysis.
We will do manual exchanges which has better clearance than a cycler but overall may benefit from hemodialysis. I did discuss this with her as she is opposed to it at this time.
I will do 4 exchanges at 2 L at 2.5% dextrose
See orders
[2024-08-23 10:20] LABS: ACTH Stim Cortisol 0 Min 20.5 ug/dl
[2024-08-23] MEDS: CORTROSYN 0.25 MG IV (10:25)
[2024-08-23] MEDS: NSS (PRESERVATIVE FREE) 1 ML IV (10:26)
--- NOTE | 2024-08-23 11:38 | PN.CDI ---
CDI
- -
CDI:
Physician Documentation Request
Admit Date: 08/22/24 18:35
Dear Doctor Jolie,
Patient admitted for myoclonus.
Laboratory Tests
08/22/24 08/23/24
11:44 06:32
Sodium 132 L 129 L
Based on the above, could you clarify in the progress notes, the appropriate diagnosis, if significant, that supports the above abnormalities and additional evaluation, monitoring and/or treatment rendered:
Hyponatremia
Abnormal lab value insignificant
Other
Use of terms such as suspected, likely, concern for, or probable (associated with a specific diagnosis that is being evaluated, monitored, or treated as if it exists) are acceptable and can be coded in the inpatient setting, when documented at the
time of discharge.
Thank you,
Negar Millan RN, BSN
CDI Specialist
Available via [address] text
Please use your independent medical judgment in providing your response.
[2024-08-23 13:11] LABS: ACTH Stim Cortisol 30 Min 29.3 ug/dl
[2024-08-23 13:29] LABS: ACTH Stim Cortisol 60 Min 38.4 ug/dl
[2024-08-23] MEDS: ROCEPHIN 1000 MG IV (14:07)
[2024-08-23] MEDS: STERILE WATER FOR INJECTION 10 ML IV (14:07)
[2024-08-23] MEDS: PROTONIX 40 MG PO (17:21)
--- NOTE | 2024-08-23 17:37 | CM ---
Patient with Hx ESRD on peritoneal dialysis with Dx Frequent Falls secondary to 'Jerking Movements' suspect Metabolic Myoclonus. Room air. Receiving IV Abx. Per nurse; drowsy. PT recommends SNF vs HH. OT recommends HH.
Spoke with patient's son Joshua;
the patient resides alone in a 2 story house with 2 YESSICA and chair lift to 2nd floor.
The patient has been independent in ADLs and ambulation, and active at home.
Son states that his mother fell at home and also fell here in hospital.
The patient does her own PD at home through [facility].
DME - [facility], [facility], w/c, chair lift
PCP - Bill Scales
Pharmacy - [facility] [place]
Joshua says family will probably want patient to return home at d/c.
He is aware that she is not currently independent in her mobility as per PT/OT.
He is arranging for family members to stay with the patient including himself, his brother from [place] who is here visiting, and a grand-daughter.
Son agrees to VN and chooses [facility] - will need referral.
Plan referral to [facility].
Plan home with [facility], with family.
[2024-08-23] MEDS: PROCARDIA XL (EXTENDED RELEASE) 30 MG PO (22:43)
[2024-08-23] MEDS: ZYPREXA ZYDIS (ORALLY DISINTEGRATING) 2.5 MG PO (22:43)
[2024-08-23] MEDS: NEURONTIN 100 MG PO (22:43)
[2024-08-24] VITALS (8 sets, daily range): BP systolic 95–127; BP diastolic 36–73; BMI 23.8
[2024-08-24] MEDS: MELATONIN 3 MG PO (00:37)
--- NOTE | 2024-08-24 01:31 | PTCARENOTE ---
Patient reported some indigestion and nausea after dinner; offered prn antiemetic but pt declined. Abd round and full. PD exchange relieved some discomfort. Assisted into bed for sleep using FWW. No myoclonus noted.
Around 0000 patient states she can't sleep, even after prn zyprexa administered. Requested melatonin; order received from LINA Mcginnis. Pt thankful. pt states she sometimes has insomnia at home and she takes a pain pill for her back that helps her
sleep.
PD completed Q4 hours per orders; refer to the worklist. PD cath site intact, no drainage. NSR on telemetry. Denies any pain. on 1-2L NC. turning self while in bed. small BM/urine in BSC; reported slight dizziness that resolved on its own.
Call zapata and tray table within reach. Pt calls appropriately for assistance. Bed alarm set for safety.
[2024-08-24] MEDS: SYNTHROID 112 MCG PO (06:00)
[2024-08-24 06:03] LABS: Blood Urea Nitrogen 60 mg/dl (7-17); Carbon Dioxide 28 mmol/L (22-30); Chloride 94 mmol/L (98-107); Estimated Creatinine Clearance 3 ml/min; Glucose 126 mg/dl (70-99); Magnesium 2.7 mg/dl (1.6-2.3); Potassium 4.4 mmol/L (3.5-5.1); Sodium 133 mmol/L (135-145)
--- NOTE | 2024-08-24 09:23 | W.PN.HOSP.TC ---
Addendum entered and electronically signed by Janelle Dave MD 08/24/24 15:00:
total DC time 40 min
Addendum entered and electronically signed by Janelle Dave MD 08/24/24 09:35:
urine culture grew Morganella morganii, but pt denies to urinary symptoms (no dysuria, frequency etc).
She was started with empiric Ceftriaxone yesterday, no need to treat further for asymptomatic bacteruria.
Original Note:
Today's Communication/Plan
-
see A/P
Assessment / Plan
Assessment / Plan
HPI: 89 y/o female past medical history of ESRD on PD, HTN, Hypothyroidism who presented with muscle twitches resulting in multiple falls. Patient reports on going 'jerking movements' in her hands that frequently cause her to drop things for the
past year. Over the last few days she has developed similar 'jerking movements' in her legs that have resulted in several falls. She states she does not feel her legs are weak.
A/P:
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
# End-stage renal disease on peritoneal dialysis
Corrected electrolyte abnormalities
Appreciate Neurology input , suspect her asterixis is associated to poor clearance on peritoneal dialysis.
Pt declines HD at this time, PD with manual exchange per renal
PT/OT recc SNF vs HH
Noted TSH 0.08/ FT4 1.80, cont current Synthroid dose at 112 mcg and recc to repeat TSH reflex FT4 in 4-6 weeks with PCP
Noted cortisol level at 8.3, stim test responded appropriately, hence r/o adrenal insufficiency
# Unclear why pt was put on O2
sat around 97%, does not appear to need 2L O2
wean O2 as tolerated, pt not on home O2
# Hyperkalemia, mild, resolved
s/p Lokelma in ED
Holding losartan
Potassium level at 4.4 today
# ESRD on Peritoneal Dialysis
see above
Continue Lasix
# Anemia of Chronic Disease
Hgb at baseline
# Essential Hypertension
Losartan on hold due to hyperkalemia POA
Continue nifedipine with hold parameter
# Hyperlipidemia
Continue Crestor
# Hypothyroidism
Noted TSH 0.08/ FT4 1.80
Cont current Synthroid dose at 112 mcg and recc to repeat TSH reflex FT4 in 4-6 weeks with PCP
# Recurrent Urinary Tract Infections
Continue Vitamin C
Would avoid Hiprex given her renal impairment
# GERD
Continue Protonix
DVT proph: SC Heparin
Code Status: DNR
DW RN
Anticipated Discharge: Within 24 hours
Subjective/Interval History
-
Date of Service: August 24, 2024
Objective Data
-
Labs:
Laboratory Results
08/24/24
05:28
Sodium 133 L
Potassium 4.4
Chloride 94 L
Carbon Dioxide 28
BUN 60 H
Creatinine 8.1 H*
Glucose 126 H
Calcium 9.0
Vital Signs:
Vital Signs
Temp Pulse Resp BP Pulse Ox
36.6 C 67 14 112/57 95
08/24/24 07:35 08/24/24 08:00 08/24/24 08:00 08/24/24 08:00 08/24/24 08:00
I&O
08/23/24 08/24/24 08/25/24
06:59 06:59 06:59
Intake Total 700 / 700
Output Total 1350 / 1350
Balance -650 / -650
Review of Systems
-
History Source: Patient
All other systems: Reviewed and negative
Physical Exam
-
General: Well Developed, Well Nourished, No Apparent Distress, Comfortable and Conversant
HEENT: Normocephalic, Atraumatic, Nose Appears Normal, Ears Appear Normal and Oxygen (2L NC)
Respiratory: Clear to Auscultation and Non Labored Respirations; Negative Accessory Resp Muscle Use
Cardiac: Regular Rhythm and S1/S2
GI: Soft, Nontender, Nondistended and Normal Bowel Sounds
Skin: Warm and Dry
Neuro: Awake, Alert, Oriented and AO x 3
Psych: Calm and Intact Judgement/Insight
Data Reviewed
-
Labs: Labs Reviewed by me
[2024-08-24] MEDS: CRESTOR 5 MG PO (10:27)
[2024-08-24] MEDS: NEPHROCAP 1 CAPSULE PO (10:28)
[2024-08-24] MEDS: ULORIC 40 MG PO (10:28)
[2024-08-24] MEDS: LASIX 80 MG PO (10:28)
[2024-08-24] MEDS: HEPARIN 5000 UNITS SC (10:29)
[2024-08-24] MEDS: VITAMIN C 250 MG PO (10:30)
--- NOTE | 2024-08-24 12:17 | W.PN.NEPH.PH ---
Today's Communication / Plan
-
DC
Assessment/Plan
-
89 y/o female past medical history of ESRD on PD, HTN, Hypothyroidism who presents with muscle twitches resulting in multiple falls. Patient reports on going 'jerking movements' in her hands that frequently cause her to drop things for the past
year.
We are consulted for end-stage renal disease on peritoneal dialysis
She previously followed with Dr. Lam but now follows with Robb and Dr. Pop since starting in dialysis and been on peritoneal dialysis for about 1 year
She does a cycler at night 5 exchanges 10 hours 2.5% dextrose
IMP:
Essential hypertension
Hypercholesterolemia
Raynaud's disease
Chronic anemia of renal disease
Gout
ESRD on PD
Plan:
She will be able to return home and resume her new prescription of 7 days PD. She does have a last fill.
On discharge she does not need to be drained as this will be equivalent to her last fill
-
-
Date of Service: August 24, 2024
CC / HPI / ROS
-
Chief Complaint:
ESRD
History of Present Illness:
PD in progress
BP stable
sodium low stable 133
Review of Systems:
No chest pain or shortness of breath
Feels better
Labs
-
Labs:
WBC 6.7 10^3/uL (4.8-10.8) 08/23/24 05:44
RBC 3.06 10^6/uL (4.20-5.40) L 08/23/24 05:44
Hgb 9.6 g/dL (12.0-16.0) L 08/23/24 05:44
Hct 28.9 % (37.0-47.0) L 08/23/24 05:44
Plt Count 205 10^3/uL (130-400) 08/23/24 05:44
Sodium 133 mmol/L (135-145) L 08/24/24 05:28
Potassium 4.4 mmol/L (3.5-5.1) 08/24/24 05:28
Chloride 94 mmol/L (98-107) L 08/24/24 05:28
Carbon Dioxide 28 mmol/L (22-30) 08/24/24 05:28
BUN 60 mg/dl (7-17) H 08/24/24 05:28
Creatinine 8.1 mg/dL (0.6-1.0) H* 08/24/24 05:28
eGFR 4.40 08/24/24 05:28
Glucose 126 mg/dl (70-99) H 08/24/24 05:28
Calcium 9.0 mg/dl (8.4-10.2) 08/24/24 05:28
Phosphorus 6.9 mg/dl (2.5-4.5) H 08/22/24 11:44
Albumin 4.3 g/dl (3.5-5.0) 08/22/24 11:44
Physical Exam
-
Vital Signs:
Vital Signs
Temp Pulse Resp BP Pulse Ox
97.7 F 68 16 121/60 96
08/24/24 11:16 08/24/24 12:00 08/24/24 12:00 08/24/24 12:00 08/24/24 12:00
Cardiovascular:: Regular rate and rhythm
Respiratory:: Bilateral: CTA
Lung Excursion:: Normal
Abdomen:: Nontender and Soft
Bowel Sounds:: Normal
Extremity Edema:: None: Bilateral:
--- NOTE | 2024-08-24 12:34 | CM ---
Chart reviewed. Patient stable for d/c today
Per prev CM note, patient's family would like for patient to d/c home despite therapy assessing patient not being independent w/ her mobility at this time.
Spoke w/ patient's son, Joshua, who confirmed d/c to home w/ family support and [facility] referral placed in [facility]
IMM verbally reviewed
Plan: Home w/ [facility]. Son will transport home
--- NOTE | 2024-08-24 13:00 | PTCARENOTE ---
Patient being discharged to home today. Patient still feels weak and is shaky but better then when she came in. Completed one PD exchange today. Son in room at bedside. VS stable.
--- NOTE | 2024-08-24 14:52 | W.DCSUMMARY ---
Discharge Summary
Discharge Data
Date of Admission: 08/22/24
Date of Discharge: 08/24/24
-
Pending Results: No
Hospital Course
Principal Diagnosis:
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
Chronic Diagnoses:�
End-stage renal disease on peritoneal dialysis
Anemia of chronic disease
Essential Hypertension. Losartan on hold due to hyperkalemia
Hyperlipidemia, on Crestor
Hypothyroidism
Recurrent Urinary Tract Infections
GERD on Protonix
Consultations:�
Nephrology
Neurology
Procedures:�
None
Clinical course:�
This is a 89-year-old female with past with medical history as stated above, who presented with muscle twitches resulting in multiple falls at home.
Problem 1:
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
Her electrolyte/hyperkalemia was corrected during hospital stay.
It was felt that her asterixis is associated with poor clearance on peritoneal dialysis, however, the patient declined to start hemodialysis at this time.
She continued with peritoneal dialysis with manual exchange per nephrology while in the hospital.
She was seen by PT OT and was recommended SNF versus HH.
She elected home health.
Of note, her TSH was noted to be low at 0.08, FT4 within normal limits at 1.80. She can continue with her prior to admission Synthroid at 112 mcg daily. She can follow-up with her PCP for repeat TSH reflex FT4 in 4-6 weeks.
As for the rest of her medical problems, they were stable during her hospital stay.
Discharge Plan
-
Patient Disposition: Home with Home Care
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
End-stage renal disease on peritoneal dialysis
Condition: Fair
Diet: As tolerated and Low Sodium
Activity: As tolerated
Driving Restrictions: As prior to admission
Blood Work: repeat TSH reflex FT4 in 4-6 weeks with PCP (Noted TSH 0.08/ FT4 1.80)
Referrals:
UNKNOWN - PT NOT,[facility] [Family Provider] - in less than 1 week
Additional Discharge Medication Instructions: Holding Losartan due to mild hyperkalemia on admission (your blood pressure stable without Losartan too)
Prescriptions:
Continued
nifedipine [Procardia XL] 30 mg Tablet Extended Release 24hr
30 mg PO HS
furosemide 80 mg Tablet
80 mg PO DAILY
rosuvastatin 5 mg Tablet
5 mg PO DAILY
Dialyvite 100-1 mg Tablet
1 tab PO DAILY
cholecalciferol (vitamin D3) [Vitamin D3] 50 mcg (2,000 unit) Tablet
50 mcg PO DAILY
febuxostat 40 mg Tablet
40 mg PO DAILY
cranberry 450 mg Tablet
450 mg PO DAILY
loperamide 2 mg Tablet
2 mg PO BIDPRN PRN (Reason: diarrhea)
methenamine hippurate 1 gram Tablet
1 g PO HS
ascorbic acid (vitamin C) [Vitamin C] 250 mg Tablet
250 mg PO DAILY
gabapentin 100 mg Capsule
100 mg PO HS
darbepoetin ida in polysorbat 40 mcg/0.4 mL Syringe
40 mcg IV Q14D
omeprazole 20 mg Tablet,Delayed Release (Dr/Ec)
20 mg PO QPM
levothyroxine [Synthroid] 112 mcg Tablet
112 mcg PO DAILY
Discontinued
losartan 100 mg Tablet
100 mg PO DAILY
Discharge Orders:
Discharge Patient (As Directed); Ordered 08/24/24
Ordered By: Janelle Dave
Discharge Date and Time
Discharge Date/Time: 08/24/24 14:00
Print Language: J[place]
== END 2024-08-24 14:00 | disposition home health service (06) | DRG 91 ==
LOC: IMU 18:35
PROVIDERS: Emergency Medicine; Physician Assistant Medical; ADMITTING PHYSICIAN Internal Medicine; ATTENDING PHYSICIAN Internal Medicine; CONSULT PHYSICIAN Internal Medicine Nephrology; CONSULT PHYSICIAN Psychiatry & Neurology Neurology; EMERGENCY PHYSICIAN Emergency Medicine
DX: G25.3 Myoclonus (principal); N18.6 End stage renal disease; I12.0 Hypertensive chronic kidney disease with stage 5 chronic kidney disease or end stage renal disease; E87.1 Hypo-osmolality and hyponatremia; R29.6 Repeated falls; D63.1 Anemia in chronic kidney disease; E03.9 Hypothyroidism, unspecified; E87.5 Hyperkalemia; E78.00 Pure hypercholesterolemia, unspecified; K21.9 Gastro-esophageal reflux disease without esophagitis; M10.9 Gout, unspecified; Z66 Do not resuscitate; Z99.2 Dependence on renal dialysis; Z87.440 Personal history of urinary (tract) infections
CPT/HCPCS: 70450; 72125; 80048; 80053; 81003; 81015; 82140; 82306; 82533; 82550; 82607; 82746; 83605; 83735; 84100; 84132; 84439; 84443; 85025; 85027; 87070; 87077; 87086; 87186; 93005; 97116; 97167; 97530; 99285

== ENCOUNTER 2024-08-26 10:03 | Emergency (ER) | payer OTHER, SELFPAY ==
[2024-08-26] VITALS (7 sets, daily range): BP systolic 112–132; BP diastolic 45–68; BMI 25.0
[2024-08-26 10:46] LABS: % Basophils 0.4 % (0-2); % Eosinophils 0.7 % (0-6); % Immature Granulocytes 0.5 % (0-0.5); % Lymphocytes 16.3 % (20.5-51.1); % Neutrophils 72.1 % (42.2-75.2); Absolute Eosinophils 0.1 10^3/uL (0-0.7); Absolute Immature Granulocytes 0.1 10^3/uL (0-0.05); Absolute Lymphocytes 1.6 10^3/uL (1.2-3.4); Absolute Neutrophils 7.1 10^3/uL (1.4-6.5); Hematocrit 36.4 % (37.0-47.0); Hemoglobin 11.9 g/dL (12.0-16.0); Mean Corp Hgb Conc. 32.7 g/dL (33.0-37.0); Mean Corpuscular Hgb 31.5 pg (27.0-31.0); Mean Corpuscular Volume 96.3 fL (81.0-99.0); Mean Platelet Volume 9.1 fL (7.4-10.4); Nucleated Red Blood Cells % 0 %; Platelet Count 277 10^3/uL (130-400); Red Blood Cell Count 3.78 10^6/uL (4.20-5.40); Red Cell Dist. Width 13.2 % (11.5-14.5); White Blood Cell Count 9.8 10^3/uL (4.8-10.8)
[2024-08-26 11:05] LABS: ALT (SGPT) 25 U/L (0-35); AST (SGOT) 25 U/L (14-36); Albumin 3.9 g/dl (3.5-5.0); Alkaline Phosphatase 70 U/L (38-126); Blood Urea Nitrogen 59 mg/dl (7-17); Calcium 9.6 mg/dl (8.4-10.2); Carbon Dioxide 26 mmol/L (22-30); Chloride 91 mmol/L (98-107); Glucose 104 mg/dl (70-99); Potassium 4.4 mmol/L (3.5-5.1); Sodium 132 mmol/L (135-145); Total Bilirubin 0.6 mg/dl (0.2-1.3); Total Protein 6.4 g/dl (6.3-8.2)
--- NOTE | 2024-08-26 13:36 | ED.GENMED ---
History of Present Illness
General
Chief Complaint: Musculo-Skeletal Complaint
Source: patient and family (granddaughter at bedside)
Exam Limitations: none
Time Seen by Provider: 08/26/24 12:29
Nursing documentation reviewed up to this point in time: agreed with
History of Present Illness
History of Present Illness:
89 yo female w peritoneal dialysis, anemia, HTN, HLD, Hypothyroid, recurrent UTI, GERD presents for uncontrollable spastic movements of hands and feet making her unable to ambulate and feeling like she will fall. Discharged 2 days ago (Admitted
08/22-08/24) for similar symptoms with multiple falls, evaluated by Neuro and Nephrology, suspected metabolic myoclonus. Hyper kalemia and Hyper natremia corrected during visit.
Mcalester that symptoms associated with poor clearance on PD but according to the notes, pt did not want HD at that time.
TSH was low during admission, she was told to continue her Synthroid at 112 mcg daily and have it repeated in 4 to 6 weeks.
Past History
Past History
ED Past Medical History: HTN, Hypercholesterolemia, Renal failure and Other (Raynauds)
ED Past Surgical History: Orthopedic
Social History
Tobacco: Non-smoker
Alcohol: None
Drug: None
Personal:
Living: alone
Employment: Retired
Family History
Family History: Other
Review of Systems
Review of Systems
Allergies reviewed?: Yes
All Other Systems: ROS reviewed and negative except as documented in HPI and ROS
Constitutional: Reports fatigue; Denies fever
Respiratory: Denies trouble breathing
Cardiac: Denies chest pain
ABD/GI: Denies abdominal pain, nausea, vomiting, diarrhea or anorexia
: Reports other (Peritoneal dialysis patient, she makes very small amounts of urine)
Musculoskeletal: Reports no symptoms
Skin: Reports no symptoms
Neurological: Reports no symptoms
Phy Exam
Physical Exam
Physical Exam:
GENERAL: No acute distress. A&Ox3.
CONSTITUTIONAL: Afebrile.
EYES: clear, conjunctivae normal
ENMT: moist mucus membranes
RESPIRATORY: Regular respirations, nonlabored, lungs clear.
CARDIOVASCULAR: Regular rate and rhythm, no murmurs, no rubs.
GI: Soft, nontender, normal BS. PD catheter intact
MUSCULOSKELETAL: Moves with ease. Well perfused. No edema
SKIN: Warm, dry, yellowish carter
PSYCH: Normal mood and affect. Well kept, interactive and appropriate
NEUROLOGIC: Awake, alert and oriented. Speech clear. Finger to nose intact. Unable to hold arms out for Rhomberg, arms drop to bed. Unable to lift each leg, legs get about 6 inches off bed then start jerking and drop to bed.
Course
Orders/Labs/Results
Orders:
Orders
08/26/24 10:15
Electrocardiogram (*1) Urgent
Reason for Study: QTc Monitoring
EKG- Treatment ONCE
08/26/24 10:29
Complete Blood Count/With Diff Urgent
Comprehensive Metabolic Panel Urgent
08/26/24 13:56
0.9% Sodium Chloride 250 ml [Nss] 250 ml IV BOLUS
08/26/24 14:03
0.9% Sodium Chloride 500 ml [Nss] 500 ml IV BOLUS
Abnormal Lab Results
08/26/24
10:29
RBC 3.78 L 10^6/uL
(4.20-5.40)
Hgb 11.9 L D g/dL
(12.0-16.0)
Hct 36.4 L %
(37.0-47.0)
MCH 31.5 H pg
(27.0-31.0)
MCHC 32.7 L g/dL
(33.0-37.0)
Abs Immat Gran (auto) 0.1 H 10^3/uL
(0-0.05)
Absolute Neuts (auto) 7.1 H 10^3/uL
(1.4-6.5)
Absolute Monos (auto) 1.0 H 10^3/uL
(0.1-0.6)
Lymphocytes % 16.3 L %
(20.5-51.1)
Monocytes % 10.0 H %
(1.7-9.3)
Sodium 132 L mmol/L
(135-145)
Chloride 91 L mmol/L
(98-107)
BUN 59 H mg/dl
(7-17)
Creatinine 8.6 H* mg/dL
(0.6-1.0)
Glucose 104 H mg/dl
(70-99)
08/26/24 10:29
08/26/24 10:29
Vital Signs
Initial and Last Documented VS:
Initial Vital Signs
Temp Pulse Resp BP Pulse Ox
98.9 F 102 16 113/61 97
08/26/24 10:13 08/26/24 10:13 08/26/24 10:13 08/26/24 10:13 08/26/24 10:13
Last Documented Vital Signs
Temp Pulse Resp BP Pulse Ox
98.9 F 79 14 125/49 94
08/26/24 10:13 08/26/24 15:15 08/26/24 15:15 08/26/24 15:00 08/26/24 15:15
Manager Media consulted with Physician
Manager Media consulted with physician?: Yes
Name of Physician Consulted: Roxann
MDM/Problems Addressed
Differential Diagnosis Includes:
Electrolyte imbalance, metabolic myoclonus
MDM/Problems Addressed:
89 yo female w peritoneal dialysis, anemia, HTN, HLD, Hypothyroid, recurrent UTI, GERD presents for uncontrollable spastic movements of hands and feet making her unable to ambulate and feeling like she will fall. Discharged 2 days ago (Admitted
08/22-08/24) for similar symptoms with multiple falls, evaluated by Neuro and Nephrology, suspected metabolic myoclonus. Hyper kalemia and Hyper natremia corrected during visit.
Mcalester that symptoms associated with poor clearance on PD but according to the notes, pt did not want HD at that time.
TSH was low during admission, she was told to continue her Synthroid at 112 mcg daily and have it repeated in 4 to 6 weeks.
Patient has had no falls since her discharge from hospital
CBC with no clinically significant abnormality,
CMP: BUN/creatinine 59/8.6, otherwise no clinically significant abnormality.
2:10 p.m.
Spoke with daughter Chasity, in [place], who is an PLASTIC SURGERY MANAGER MD and handles much of pt's medical care, She is very concerned about the one BP here of 112/45 may be contributing to her falls. She states she held her BP med Nifedipine and Losartan last p.m.
Looking at past records, BP has been 130's - 160's much of the time and since 08/23 during admission starting antihypertensives BP has been 111-120's/40'-60's
She states she is comfortable with our plan to hydrate, she will be down from [place] tomorrow, monitor her BP and take pt to her [facility] doctor Dr. Pop on Mon (2 days).
Pt is comfortable with this plan. Family will stay with her.
Pt has been resting in bed since arrival with no significant tremors or spasms.
Case discussed with Dr. Hackett who agrees with assessment and plan
I asked patient if she is comfortable doing her peritoneal dialysis tonight at home, she says she will call [facility] and discuss it with them. I attempted to call the dialysis center at 2 separate numbers and got a busy signal.
Chronic conditions affecting care: HTN and Kidney disease
*Critical Care Note
Total Time (30-74mins, 75-104mins- exclusive of procedures): Not Applicable
ED Attending Note
-
Portions of this chart may have been created with voice recognition software.� Occasional wrong word or��sound alike� substitutions may have occurred due to the inherent limitations of voice recognition software.
Discharge Plan
Departure
Patient Disposition: Home (Routine Discharge)
Date of Disposition: 08/26/24
Time of Disposition: 15:03
Patient with high blood pressure during this ER visit?: No
Condition: Fair
Discharge Problem:
Involuntary jerky movements
Prescriptions:
No Action
nifedipine [Procardia XL] 30 mg Tablet Extended Release 24hr
30 mg PO HS
furosemide 80 mg Tablet
80 mg PO DAILY
rosuvastatin 5 mg Tablet
5 mg PO DAILY
Dialyvite 100-1 mg Tablet
1 tab PO DAILY
cholecalciferol (vitamin D3) [Vitamin D3] 50 mcg (2,000 unit) Tablet
50 mcg PO DAILY
febuxostat 40 mg Tablet
40 mg PO DAILY
loperamide 2 mg Tablet
2 mg PO BIDPRN PRN (Reason: diarrhea)
methenamine hippurate 1 gram Tablet
1 g PO HS
ascorbic acid (vitamin C) [Vitamin C] 250 mg Tablet
250 mg PO HS
gabapentin 100 mg Capsule
300 mg PO HS
Aranesp (in polysorbate) 40 mcg/0.4 mL Syringe
40 mcg IV Q14D
omeprazole 20 mg Tablet,Delayed Release (Dr/Ec)
20 mg PO QPM
levothyroxine [Synthroid] 112 mcg Tablet
112 mcg PO DAILY
Referrals:
Stephanie Pop MD [Non-Admitting Privileges] - Keep scheduled appt
Bill Scales MD [Family Provider] -
Activity Restrictions/Additional Instructions:
As we discussed, have someone stay with you until your appointment with your esthetician facialist in 2 days.
Do not get up and walk without help as you are at risk for falling.
I noticed your low blood pressure started around 5/9 shortly after you started the blood pressure medication so these are probably what are causing your lower blood pressure.
Stop your blood pressure medications until you discuss it with Dr. Pop
Your creatinine is 8.6. Call [facility] if you are concerned about doing your dialysis tonight. I tried two different numbers and both were busy
Interventions
Interventions:
*Risk Screen - Suicide Last Done: 08/26/24 10:15
*General Assessment Last Done: 08/26/24 12:46
*Neglect/Abuse Screening Last Done: 08/26/24 10:15
*ED- Fall Risk Assessment Last Done: 08/26/24 12:46
*Nursing Disposition Last Done: 08/26/24 15:37
ED-Musculoskeletal Assessment Last Done: 08/26/24 12:53
Discharge Date and Time
Discharge Date/Time: 08/26/24 16:03
Print Language: CITIZEN [place]
[2024-08-26] MEDS: NSS 500 IV (14:14)
== END 2024-08-26 16:03 | disposition home or self-care (01) ==
LOC: EMR 10:03
PROVIDERS: Emergency Medicine; EMERGENCY PHYSICIAN Emergency Medicine; FAMILY PHYSICIAN Family Medicine
DX: R25.9 Unspecified abnormal involuntary movements (principal); D64.9 Anemia, unspecified; E03.9 Hypothyroidism, unspecified; E78.00 Pure hypercholesterolemia, unspecified; I10 Essential (primary) hypertension; I73.00 Raynaud's syndrome without gangrene; K21.9 Gastro-esophageal reflux disease without esophagitis; N39.0 Urinary tract infection, site not specified; Z79.890 Hormone replacement therapy; Z87.440 Personal history of urinary (tract) infections; Z99.2 Dependence on renal dialysis
CPT/HCPCS: 99283; 96360; 80053; 85025; 93005

== ENCOUNTER 2024-08-29 19:27 | Inpatient (IN) | payer OTHER, SELFPAY ==
[2024-08-29 12:20] VITALS: BP 162/73
[2024-08-29 12:44] LABS: % Basophils 0.5 % (0-2); % Eosinophils 1.4 % (0-6); % Immature Granulocytes 0.2 % (0-0.5); % Lymphocytes 17.7 % (20.5-51.1); % Neutrophils 71.2 % (42.2-75.2); Absolute Eosinophils 0.1 10^3/uL (0-0.7); Absolute Lymphocytes 1.2 10^3/uL (1.2-3.4); Absolute Monocytes 0.6 10^3/uL (0.1-0.6); Absolute Neutrophils 4.7 10^3/uL (1.4-6.5); Hematocrit 29.6 % (37.0-47.0); Hemoglobin 10.5 g/dL (12.0-16.0); Mean Corp Hgb Conc. 35.5 g/dL (33.0-37.0); Mean Corpuscular Hgb 31.3 pg (27.0-31.0); Mean Corpuscular Volume 88.4 fL (81.0-99.0); Nucleated Red Blood Cells % 0 %; Platelet Count 240 10^3/uL (130-400); Red Blood Cell Count 3.35 10^6/uL (4.20-5.40); Red Cell Dist. Width 12.1 % (11.5-14.5); White Blood Cell Count 6.6 10^3/uL (4.8-10.8)
[2024-08-29 13:22] LABS: ALT (SGPT) 17 U/L (0-35); AST (SGOT) 23 U/L (14-36); Albumin 3.6 g/dl (3.5-5.0); Alkaline Phosphatase 67 U/L (38-126); Blood Urea Nitrogen 91 mg/dl (7-17); Calcium 9.4 mg/dl (8.4-10.2); Carbon Dioxide 22 mmol/L (22-30); Chloride 83 mmol/L (98-107); Glucose 87 mg/dl (70-99); Potassium 5.4 mmol/L (3.5-5.1); Sodium 118 mmol/L (135-145); Total Bilirubin 0.6 mg/dl (0.2-1.3); Total Protein 6.1 g/dl (6.3-8.2)
[2024-08-29 13:23] LABS: eGFR 3.38
[2024-08-29 15:16] VITALS: BP 157/57
[2024-08-29 16:00] VITALS: BP 147/56
--- NOTE | 2024-08-29 16:16 | ED.GENMED ---
History of Present Illness
General
Chief Complaint: Dehydration Symptoms
Source: patient
Exam Limitations: none
Time Seen by Provider: 08/29/24 16:01
History of Present Illness
History of Present Illness:
See MDM
Past History
Past History
ED Past Medical History: HTN, Hypercholesterolemia, Renal failure and Other (Raynauds)
ED Past Surgical History: Orthopedic
Social History
Tobacco: Non-smoker
Alcohol: None
Drug: None
Personal:
Living: alone
Employment: Retired
Family History
Family History: Other
Phy Exam
Physical Exam
Physical Exam:
See MDM
Course
Orders/Labs/Results
Orders:
Orders
08/29/24 12:27
EKG [Electrocardiogram (*1)] Urgent
Reason for Study: Other
Other Reason for Exam: no recent dialysis
08/29/24 12:28
EKG- Treatment ONCE
08/29/24 12:35
Complete Blood Count/With Diff Urgent
Comprehensive Metabolic Panel Urgent
08/29/24 16:49
[facility] CONSULT Routine
Consulting Provider: Abhi Mcarthur
Was physician already notified: Yes
Procedure being ordered, including laterality if applicable: tunnelled HD CVC 08/30am, HD 08/30
Acknowledgement that appropriate orders are entered: Yes
08/29/24 16:50
Hemodialysis treatment As Directed
Treatment date:: 08/30/24
Treatment type: Hemodialysis
Ultrafiltration (kg): 2
Treatment time (duration): 3 hours
Use dialysis access:: Tunneled Cath
Dialyzer:: Optiflux 160
Blood flow rate minimum: 300
Blood flow rate maximum: 350
Dialysis flow rate: 600 mL/min
Dialysate temperature: 35 degrees Celsius
Sodium (Na): 140
Potassium (K): 2
Calcium (Ca): 2
Bicarbonate (HCO3): 35
08/29/24 16:56
3% Sodium Chloride 250 ml [Sodium Chloride 3%] 250 ml IV ONCE
08/29/24 16:58
Sodium Zirconium Cyclosilicate [Lokelma] 5 gram PO NOW STA
08/30/24 07:00
Complete Blood Count/No Diff Urgent
Electrolytes Urgent
Comment: pre-Hemodialysis lab, to be drawn by HD nurse
08/30/24 08:00
Heparin See Dose Instructions INTRACATH HD-ONCE ONE
Mannitol 25% 12.5 grams IV HD-Q1H
Abnormal Lab Results
08/29/24
12:35
RBC 3.35 L 10^6/uL
(4.20-5.40)
Hgb 10.5 L g/dL
(12.0-16.0)
Hct 29.6 L %
(37.0-47.0)
MCH 31.3 H pg
(27.0-31.0)
Lymphocytes % 17.7 L %
(20.5-51.1)
Sodium 118 L* mmol/L
(135-145)
Potassium 5.4 H mmol/L
(3.5-5.1)
Chloride 83 L mmol/L
(98-107)
BUN 91 H mg/dl
(7-17)
Creatinine 10.1 H* mg/dL
(0.6-1.0)
Total Protein 6.1 L g/dl
(6.3-8.2)
08/29/24 12:35
08/29/24 12:35
Vital Signs
Initial and Last Documented VS:
Initial Vital Signs
Temp Pulse Resp BP Pulse Ox
97.6 F 65 18 162/73 96
08/29/24 12:20 08/29/24 12:20 08/29/24 12:20 08/29/24 12:20 08/29/24 12:20
Last Documented Vital Signs
Temp Pulse Resp BP Pulse Ox
97.6 F 69 17 147/56 94
08/29/24 12:20 08/29/24 16:15 08/29/24 16:15 08/29/24 16:00 08/29/24 16:15
MDM/Problems Addressed
Differential Diagnosis Includes:
HPI and MDM Narrative:
89-year-old female presenting for evaluation for dialysis. Patient receives peritoneal dialysis at home. She was unable to perform the last 2 days at home because 'the machine was not working'. She went to the dialysis center today and they were
still unable to dialyze her. Son at bedside believes that this is a port issue rather than machine issue. She was sent to the emergency department for central line and emergent dialysis, per patient
Blood work was done prior to my exam. Patient found to be hyponatremic. She is mildly elevated potassium and creatinine is rising as well
Physical exam
General: Weak and fatigued
HEENT: protecting airway. Mildly dry mucous membranes
Neck: appears supple
CV: No evidence of cyanosis
Resp: No accessory muscle use. Lungs clear
Abd: Non-distended. Soft and nontender. Peritoneal dialysis site clean and intact
Extremities: No deformities
Neuro: alert
Psych: Normal affect
Skin: Intact
Problems Addressed including Acute and Chronic Conditions affecting care:
1. Hyponatremia
Acuity: acute
Prognosis: unstable
Details: Will discuss case with nephrology in regards to 3% saline
2. Hyperkalemia
Acuity: acute
Prognosis: unstable
Details: Will discuss case with nephrology in regards to dialysis versus giving dose of Lokelma
Updates
Nephrology agrees that no need for emergent dialysis today. Will place on 3% saline running at 10 mL/h, per nephrology. IR consulted for catheter placement.
Differential Diagnosis (but not limited to): End-stage renal disease, hyponatremia, hyperkalemia
Testing considered: Urinalysis
Drug therapy (if applicable): OTC meds, please see d/c instruction regarding Rx drugs
Amount and/or Complexity of Data Reviewed
Clinical info obtained from: Patient
External data reviewed: N/A
Labs I independently reviewed (but not limited to): Hyponatremia, hyperkalemia
Radiology: N/A
Pulse Ox: not hypoxic
EKG independently reviewed: Sinus rhythm, normal axis, no STEMI
Supervisor Purification: Sinus rhythm
Critical Care: The high probability of a clinically significant, sudden or life threatening deterioration of the cardiac system(s) required my full and direct attention, intervention and personal management. The aggregate critical care time was 35
minutes. This time is in addition to time spent performing reported procedures but includes the following:
[x] Data Review and interpretation
[x] Patient assessment and monitoring of vital signs
[x] Documentation
[x] Medication orders and management
Risk of Complication:
Social Determinants of health: Good social support
Discussed with other providers: Nephrology, hospitalist
Escalation of Care includes Admit/Obs: Given the need for dialysis and her current hyponatremia, will admit
Occasional wrong word or 'sound a like' substitutions may have occurred due to the inherent limitations of voice recognition software. Read the chart carefully and recognize, using context, where substitutions have occurred.
*Critical Care Note
Total Time (30-74mins, 75-104mins- exclusive of procedures): 35 min
ED Attending Note
-
Portions of this chart may have been created with voice recognition software.� Occasional wrong word or��sound alike� substitutions may have occurred due to the inherent limitations of voice recognition software.
Discharge Plan
Departure
Patient Disposition: Admit
Date of Disposition: 08/29/24
Time of Disposition: 17:02
Admit to: IMU
Presentation/result/management discussed w/ accepting MD/DO: Hospitalist
Discharge Problem:
Acute hyperkalemia, Acute hyponatremia, CKD (chronic kidney disease)
Prescriptions:
No Action
nifedipine [Procardia XL] 30 mg Tablet Extended Release 24hr
30 mg PO HS
furosemide 80 mg Tablet
80 mg PO DAILY
rosuvastatin 5 mg Tablet
5 mg PO DAILY
Dialyvite 100-1 mg Tablet
1 tab PO DAILY
cholecalciferol (vitamin D3) [Vitamin D3] 50 mcg (2,000 unit) Tablet
50 mcg PO DAILY
febuxostat 40 mg Tablet
40 mg PO DAILY
loperamide 2 mg Tablet
2 mg PO BIDPRN PRN (Reason: diarrhea)
methenamine hippurate 1 gram Tablet
1 g PO HS
ascorbic acid (vitamin C) [Vitamin C] 250 mg Tablet
250 mg PO HS
gabapentin 100 mg Capsule
300 mg PO HS
Aranesp (in polysorbate) 40 mcg/0.4 mL Syringe
40 mcg IV Q14D
omeprazole 20 mg Tablet,Delayed Release (Dr/Ec)
20 mg PO QPM
levothyroxine [Synthroid] 112 mcg Tablet
112 mcg PO DAILY
Referrals:
Placido Scales MD [Family Provider] -
Interventions
Interventions:
*Risk Screen - Suicide Last Done: 08/29/24 12:20
*General Assessment Last Done: 08/29/24 12:20
ED- Cardiac Assessment Last Done: 08/29/24 16:20
ED- Neurological Assessment Last Done: 08/29/24 16:20
ED- Pulmonary Assessment Last Done: 08/29/24 16:20
Discharge Date and Time
Print Language: HEBRE[place]
[2024-08-29 17:00] VITALS: BP 150/54
[2024-08-29] MEDS: SODIUM CHLORIDE 3% 250 IV (17:29)
--- NOTE | 2024-08-29 18:07 | HPS.HSE ---
Family Physician
-
Family Physician: Placido Scales
Chief Complaint
-
No dialysis x 2 days due to clogged catheter, nausea last night with vomiting x 1
History of Present Illness
89-year-old female who receives peritoneal dialysis at home but has been unable to perform over the last 2 days due to' the machine not working'. She went to the dialysis center today and they were unable to dialyze her due to suspected port
obstruction. She was sent to the emergency room for admission and dialysis. She states she was nauseous last night and threw up once she was just able to eat a turkey sandwich and keep it down. She was seen by nephrology and a consult was placed
to IR to access HD catheter and plan for dialysis in the a.m. she was given low-dose Lokelma for potassium of 5.4. 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
with free T4 within normal limits 1.8 was recommended to continue her Synthroid at 112 mcg daily and follow-up for repeat TSH reflex T4 4 to 6 weeks. The patient denies headache, fever, chills, chest pain, palpitations, cough, shortness of breath,
abdominal pain, nausea, vomiting, diarrhea, urinary symptoms.
She has past medical history of ESRD on peritoneal dialysis, anemia of chronic disease, HTN, HLD hypothyroidism, muscle twitches with multiple falls, recurrent UTIs, GERD
Medical History
Past Medical History
Past Medical History: Reports Other
Additional Past Medical History:
ESRD on Peritoneal Dialysis
Anemia of Chronic Disease
Essential Hypertension
Hyperlipidemia
Hypothyroidism
Chronic Diarrhea
Recurrent Urinary Tract Infections
GERD
Daily alcohol use Wine 6 ounces with dinner
Neuropathy
Hyperuricemia
Past Surgical History: Reports Other
Additional Past Surgical History:
Right Shoulder Rotator Cuff
Right MCL
Hand Surgery
PD Catheter
Social History
Tobacco: Non-smoker
Alcohol: None
Drug: None
Personal: Single
Living: Alone
Family History
Family History: Not pertinent
Allergies / Home Medications
Allergies reflects when Allergies were last updated in [facility].
Home Medications with original date entered in [facility]
Allergy/Medication List:
Allergies
Allergy/AdvReac Type Severity Reaction Status Date / Time
aspirin Allergy SEE BELOW Verified 08/29/24 12:27
ibuprofen Allergy SEE BELOW Verified 08/29/24 12:27
Iodinated Contrast Media Allergy Unknown Verified 08/29/24 17:04
iodine Allergy Hives Verified 08/29/24 12:27
Sulfa (Sulfonamide Allergy Vomiting Verified 08/29/24 12:27
Antibiotics)
narcotics Allergy Nausea Uncoded 08/29/24 12:27
Home Medications
cholecalciferol (vitamin D3) 50 mcg (2,000 unit) tablet (Vitamin D3) 50 mcg PO DAILY Supplement 12/25/23
febuxostat 40 mg tablet 40 mg PO DAILY HYPERURICEMIA 12/25/23
furosemide 80 mg tablet 80 mg PO DAILY Fluid Retention/Swelling 12/25/23
nifedipine 30 mg tablet,extended release 24 hr (Procardia XL) 30 mg PO HS Blood Pressure 12/25/23
rosuvastatin 5 mg tablet 5 mg PO DAILY High Cholesterol 12/25/23
vitamin B complex-vitamin C 100 mg-folic acid 1 mg tablet (Dialyvite) 1 tab PO DAILY Supplement 12/25/23
ascorbic acid (vitamin C) 250 mg tablet (Vitamin C) 250 mg PO HS Supplement 08/22/24
darbepoetin ida in polysorbat 40 mcg/0.4 mL in polysorbate injection syringe (Aranesp) 40 mcg IV Q14D 08/22/24
gabapentin 100 mg capsule 300 mg PO HS Neurological Condition 08/22/24
levothyroxine 112 mcg tablet (Synthroid) 112 mcg PO DAILY Thyroid 08/22/24
loperamide 2 mg tablet 2 mg PO BIDPRN PRN diarrhea 08/22/24
methenamine hippurate 1 gram tablet 1 g PO HS Infection 08/22/24
omeprazole 20 mg tablet,delayed release 20 mg PO QPM Gastrointestinal Issue 08/22/24
Review of Systems
-
History Source: Patient
A 12 point ROS was completed and negative except as noted: Yes
Constitutional: Denies Fever or Chills
EENT: Denies Sore Throat or Runny Nose
Respiratory: Denies Cough or Trouble Breathing
Cardiac: Denies Chest Pain, Diaphoresis, Palpitations or Syncope
Abdomen/GI: Denies Abdominal Pain, Nausea or Vomiting
: Denies Dysuria, Frequency, Flank Pain, Incontinence, Difficulty Voiding or Urgency
Musculoskeletal: Denies Joint Pain or Edema
Skin: Denies Itching or Rash
Neurological: Denies Dizzy, Headache or Weakness
Endocrine: Reports No Symptoms
Hematologic/Lymphatic: Reports No Symptoms
Psych: Reports Calm
Physical Exam
Vital Signs
Vital Signs
Temp Pulse Resp BP Pulse Ox
97.6 F 65 19 150/54 96
08/29/24 12:20 08/29/24 17:45 08/29/24 17:45 08/29/24 17:00 08/29/24 17:45
Physical Exam
General: Comfortable and Conversant; No Pain, Fever or Chills
HEENT: NormoCephalic, Anicteric, PERRLA, [place] Conjunctivae, No Ptosis and Other (Chronic exophthalmos thyroid disease)
Respiratory: Clear; No Wheezes, Rales or Rhonchi
Cardiac: S1/S2 and Regular Rhythm; No Murmur, Rub, Gallop or Peripheral Edema
Breast: Deferred by me
GI: Soft, Non Tender, Non Distended, Normal Bowel Sounds, No Hepatosplenomegaly and Other (Left-sided peritoneal dialysis catheter present)
Genito-urinary: Deferred by me
Musculoskeletal: No Clubbing, No Cyanosis and No Edema
Skin: Warm and Dry; No Rash
Neuro: AO x 3, No Motor Deficits, Nonfocal/grossly intact, Cranial Nerves Intact and No Sensory Deficits; No Slurred Speech, Facial Droop, Tremors or Sedated
Psych: Calm
Laboratory Results
-
08/29/24 12:35
08/29/24 12:35
Laboratory Results
Total Bilirubin 0.6 mg/dl (0.2-1.3) 08/29/24 12:35
AST 23 U/L (14-36) 08/29/24 12:35
ALT 17 U/L (0-35) 08/29/24 12:35
Alkaline Phosphatase 67 U/L (38-126) 08/29/24 12:35
Impression/Plan
-
Impression/plan:
Admit to IMU
#Clogged peritoneal dialysis catheter
#ESRD on peritoneal dialysis at home
has not had in the past 2 days due to obstructed catheter
- Consult IR for temporary dialysis catheter
- Consult Nephrology
- Plan is for possible dialysis tomorrow 08/30/2024
- Follow BMP
#Severe hyponatremia unclear ideology
NA 118
3% NA at 10 mL an hour
-Fluid restrict 40 ounce, low potassium diet
-Check urine NA, urine osmole, serum Osmo
TSH low 0.08 with free T4 within normal limits 1.8 on 08/19 to continue Synthroid 112 mcg daily
- Continue Lasix 80 mg daily
- Follow BMP every 6h
- Continue Dialyvite, vitamin D3, patient gets Aranesp 40 mcg IV q. 14 days unknown last date
#Hyperkalemia secondary CKD
K5.4 Patient was given Lokelma 5 g in the ER
-Check magnesium
#Hyperuricemia
- Continue Febuxostat 40 mg daily
#Daily alcohol use Wine 6 ounces with dinner
Last drink was 3 days ago
#Anemia of chronic disease
- Hgb 10.5�appears near baseline
#HTN
BP 150/54
-Continue Procardia XL 30 mg at bedtime
#HLD
-Continue Crestor 5 mg daily
#Hypothyroidism
had TSH low 0.08 with free T4 within normal limits 1.8 was recommended to continue her Synthroid at 112 mcg daily and follow-up for repeat TSH reflex T4 4 to 6 weeks.
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
-Had recent admission 08/19 - 08/24/2024 was recommended SNF but wanted to go home
#Recurrent UTIs
- Continue methenamine Hippurate 1 g p.o. at bedtime
#Neuropathy
Continue gabapentin 300 mg at bedtime
# GERD
- Continue omeprazole 20 mg every afternoon
DVT prophylaxis
SCDs
DNR per patient emergency contact is her son Joshua herring
[2024-08-29] MEDS: LOKELMA 5 GRAM PO (18:13)
[2024-08-29 18:49] LABS: Magnesium 2.5 mg/dl (1.6-2.3)
--- NOTE | 2024-08-29 18:53 | W.PN.UPDATE ---
Update Note
Progress Note Update
This is an addendum to the H&P written by Yael Kramer on 08/29/2024.� Patient seen examined independently with RADIATOR SPECIALIST.
89-year-old female past medical history of ESRD on peritoneal dialysis, anemia of chronic disease, hypertension, hyperlipidemia, hypothyroidism, suspected metabolic myoclonic muscle twitches, recurrent UTIs, GERD, presenting with inability to
perform peritoneal dialysis for the past 2 days.� She was unable to be dialyzed at dialysis center due to suspected port obstruction.
Symptoms of nausea and an episode of vomiting.
Labs show potassium 5.4, sodium 118.
Not volume overloaded on examination.
Patient with malfunctioning peritoneal dialysis catheter.� IR consulted for management of peritoneal dialysis catheter and placement of temporary dialysis catheter for hemodialysis tomorrow.� Nephrology consulted.
Unclear etiology of hyponatremia.� Not clearly symptomatic.� Fluid restriction.� Check urine sodium, osmolality and TSH.� Hypertonic saline being given.� Monitor BMP.� Continue Lasix.
[2024-08-29 20:21] LABS: Osmolality Serum 273 mOsm/kg (275-300)
--- NOTE | 2024-08-29 21:02 | W.CON.NEPH ---
Consultation
-
Date/Time Consultation Requested: 08/29/24 3pm
Date/Time Consultation Performed: 08/29/24 5pm
Requesting Provider: Dr. Santana
Performing Provider: Dr. Hwang
Reason for Consultation: ESRD
Medical History
-
Chief Complaint: failure of PD catheter
History of Present Illness:
89 y/o female with ESRD on PD, HTN, Hypothyroidism who presents with muscle twitches resulting in multiple falls. Patient reports on going 'jerking movements' in her hands that frequently cause her to drop things for the past year. She was recently
in the hospital for those symptoms. There was consideration to this was genesis to failure of PD. However, she was already instructed to increase her PD prescription at home. She was stabilized and discharged. Over the weekend she performed PD with 2.5%
solutions. Her BP fell on Monday and Monday and she was told to hold off on PD those days. When she restarted on Monday her catheter did not work. She was seen in clinic today and was told to go to the hospital for HD. She decided to come to .
Past Medical History
hypertension, ESRD on peritoneal dialysis, hypercholesterolemia, Raynaud's, hyperuricemia
Past Surgical History: Other (PD catheter placement)
Social History
Tobacco: Non-Smoker
Alcohol: None
Drug: None
Living: Alone
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
Family History
brothers and sister with kidney disease
Allergies / Home Medications
Allergy/AdvReac Type Severity Reaction Status Date / Time
aspirin Allergy SEE BELOW Verified 08/29/24 12:27
ibuprofen Allergy SEE BELOW Verified 08/29/24 12:27
Iodinated Contrast Media Allergy Unknown Verified 08/29/24 17:04
iodine Allergy Hives Verified 08/29/24 12:27
Sulfa (Sulfonamide Allergy Vomiting Verified 08/29/24 12:27
Antibiotics)
narcotics Allergy Nausea Uncoded 08/29/24 12:27
�Medication �Instructions �Recorded �Confirmed �Type
cholecalciferol (vitamin D3) 50 50 mcg PO DAILY Supplement 12/25/23 08/29/24 History
mcg (2,000 unit) tablet (Vitamin
D3)
febuxostat 40 mg tablet 40 mg PO DAILY HYPERURICEMIA 12/25/23 08/29/24 History
furosemide 80 mg tablet 80 mg PO DAILY Fluid 12/25/23 08/29/24 History
Retention/Swelling
nifedipine 30 mg tablet,extended 30 mg PO HS Blood Pressure 12/25/23 08/29/24 History
release 24 hr (Procardia XL)
rosuvastatin 5 mg tablet 5 mg PO DAILY High Cholesterol 12/25/23 08/29/24 History
vitamin B complex-vitamin C 100 1 tab PO DAILY Supplement 12/25/23 08/29/24 History
mg-folic acid 1 mg tablet
(Dialyvite)
ascorbic acid (vitamin C) 250 mg 250 mg PO HS Supplement 08/22/24 08/29/24 History
tablet (Vitamin C)
darbepoetin ida in polysorbat 40 40 mcg IV Q14D 08/22/24 08/29/24 History
mcg/0.4 mL in polysorbate
injection syringe (Aranesp)
gabapentin 100 mg capsule 300 mg PO HS Neurological Condition 08/22/24 08/29/24 History
levothyroxine 112 mcg tablet 112 mcg PO DAILY Thyroid 08/22/24 08/29/24 History
(Synthroid)
loperamide 2 mg tablet 2 mg PO BIDPRN PRN diarrhea 08/22/24 08/29/24 History
methenamine hippurate 1 gram tablet 1 g PO HS Infection 08/22/24 08/29/24 History
omeprazole 20 mg tablet,delayed 20 mg PO QPM Gastrointestinal Issue 08/22/24 08/29/24 History
release
Review of Systems
-
myoclonus twitching, fatigue.
All other systems: Negative unless noted
Physical Exam
Vital Signs
Vital Signs
Temp Pulse Resp BP Pulse Ox
97.6 F 63 20 150/54 99
08/29/24 12:20 08/29/24 20:30 08/29/24 20:30 08/29/24 17:00 08/29/24 18:15
Lab Results
WBC 6.6 10^3/uL (4.8-10.8) 08/29/24 12:35
RBC 3.35 10^6/uL (4.20-5.40) L 08/29/24 12:35
Hgb 10.5 g/dL (12.0-16.0) L 08/29/24 12:35
Hct 29.6 % (37.0-47.0) L 08/29/24 12:35
Plt Count 240 10^3/uL (130-400) 08/29/24 12:35
Sodium 118 mmol/L (135-145) L* 08/29/24 12:35
Potassium 5.4 mmol/L (3.5-5.1) H 08/29/24 12:35
Chloride 83 mmol/L (98-107) L 08/29/24 12:35
Carbon Dioxide 22 mmol/L (22-30) 08/29/24 12:35
BUN 91 mg/dl (7-17) H 08/29/24 12:35
Creatinine 10.1 mg/dL (0.6-1.0) H* 08/29/24 12:35
eGFR 3.38 08/29/24 12:35
Glucose 87 mg/dl (70-99) 08/29/24 12:35
Calcium 9.4 mg/dl (8.4-10.2) 08/29/24 12:35
Phosphorus 10.0 mg/dl (2.5-4.5) H 08/29/24 12:35
Albumin 3.6 g/dl (3.5-5.0) 08/29/24 12:35
Physical Exam
Patient is awake alert oriented and in no distress. Mood and affect were pleasant, insight and judgment were good. Pupils are equal round and reactive to light, extraocular movements are intact, sclera were anicteric. Hearing was normal, ears and
nose are intact. Oropharynx was clear. Neck was supple with trachea midline and no thyromegaly. Heart was regular rate and rhythm without rubs. Lower extremities without edema. Lungs were clear to auscultation bilaterally and with normal
excursion. Abdomen was soft, nontender, with normal active bowel sounds, and no hepatosplenomegaly. Skin was without rash and with normal turgor.
Data Reviewed
-
Medical Tests (Nuc Med, Echo etc): Image Personally Visualized and interpreted (EKG 08/29 my reading 1st AVB, septal q)
Labs: Labs Reviewed by me
Old Records: Reviewed
Assessment/Plan
-
IMP:
Essential hypertension
Hypercholesterolemia
Raynaud's disease
Chronic anemia of renal disease
Gout
ESRD on PD, failure of PD catheter
Plan:
tunnelled HD CVC tomorrow
HD tomorrow
flush PD catheter for PD fluid evaluation
will need CM for OP HD arrangements
3%NaCl low rate for hyponatremia 118
d/w patient and children
[2024-08-29 21:26] VITALS: BP 153/68; BMI 24.8
[2024-08-29] MEDS: ZOFRAN 4 MG IV (22:28)
[2024-08-29] MEDS: HEPARIN 5000 UNITS SC (22:28)
[2024-08-29 23:21] VITALS: BP 139/57
[2024-08-29] MEDS: HIPREX 1 GRAM PO (23:53)
[2024-08-29] MEDS: NEURONTIN 300 MG PO (23:53)
[2024-08-29] MEDS: VITAMIN C 250 MG PO (23:54)
[2024-08-29] MEDS: PROCARDIA XL (EXTENDED RELEASE) PO (23:55)
[2024-08-30] VITALS (8 sets, daily range): BP systolic 77–160; BP diastolic 49–86; BMI 24.7
[2024-08-30 04:53] LABS: Osmolality Urine 201 mOsm/kg (300-900)
[2024-08-30 04:59] LABS: Urine Sodium 45 mmol/L (30-90)
[2024-08-30] MEDS: SYNTHROID 112 MCG PO (06:06)
[2024-08-30 07:08] LABS: % Basophils 0.3 % (0-2); % Eosinophils 1.4 % (0-6); % Immature Granulocytes 0.3 % (0-0.5); % Lymphocytes 23.4 % (20.5-51.1); % Monocytes 11.7 % (1.7-9.3); % Neutrophils 62.9 % (42.2-75.2); Absolute Eosinophils 0.1 10^3/uL (0-0.7); Absolute Lymphocytes 1.3 10^3/uL (1.2-3.4); Absolute Monocytes 0.7 10^3/uL (0.1-0.6); Absolute Neutrophils 3.6 10^3/uL (1.4-6.5); Hematocrit 24.9 % (37.0-47.0); Hemoglobin 9.2 g/dL (12.0-16.0); Mean Corp Hgb Conc. 36.9 g/dL (33.0-37.0); Mean Corpuscular Hgb 31.9 pg (27.0-31.0); Mean Corpuscular Volume 86.5 fL (81.0-99.0); Mean Platelet Volume 9.1 fL (7.4-10.4); Nucleated Red Blood Cells % 0 %; Platelet Count 220 10^3/uL (130-400); Red Blood Cell Count 2.88 10^6/uL (4.20-5.40); Red Cell Dist. Width 12.1 % (11.5-14.5); White Blood Cell Count 5.7 10^3/uL (4.8-10.8)
[2024-08-30 07:35] LABS: ALT (SGPT) 15 U/L (0-35); AST (SGOT) 24 U/L (14-36); Albumin 3.3 g/dl (3.5-5.0); Alkaline Phosphatase 61 U/L (38-126); Blood Urea Nitrogen 100 mg/dl (7-17); Calcium 8.6 mg/dl (8.4-10.2); Carbon Dioxide 18 mmol/L (22-30); Chloride 90 mmol/L (98-107); Glucose 61 mg/dl (70-99); Potassium 5.2 mmol/L (3.5-5.1); Sodium 122 mmol/L (135-145); Total Bilirubin 0.6 mg/dl (0.2-1.3); Total Protein 5.2 g/dl (6.3-8.2)
[2024-08-30 07:45] LABS: Estimated Creatinine Clearance 3 ml/min; eGFR 3.38
[2024-08-30] MEDS: NEPHROCAP 1 CAPSULE PO (08:23)
[2024-08-30] MEDS: CRESTOR 5 MG PO (08:23)
[2024-08-30] MEDS: HEPARIN 5000 UNITS SC ×2 (08:23→20:53)
[2024-08-30] MEDS: ULORIC 40 MG PO (08:23)
[2024-08-30] MEDS: VITAMIN D3 (cholecalciferol) 50 MCG PO (08:23)
[2024-08-30] MEDS: LASIX 80 MG PO (08:24)
[2024-08-30] MEDS: ATIVAN 1 MG PO (09:29)
--- NOTE | 2024-08-30 09:38 | CM ---
Patient seen at bedside
IA completed
explained role of CM
Dx: clogged HD cath, hyperkalemia, hyponatremia
PMH: ESRD on PD, HTN, Hypothyroidism
Patient states she performs peritoneal dialysis at home.
She states she goes to [facility] in [place] 2xmonth
Patient lives alone in a 2 story home, 2 steps to enter, stair glide to 2nd floor
PLOF: independent
DME: stair glide, walker, commode, shower chair, cane
PCP: Bill Scales
PHARMACY: [facility]
PLAN: Home, currently no needs, CM to follow hospital progress
--- NOTE | 2024-08-30 11:19 | W.PN.HOSP.TC ---
Today's Communication/Plan
-
Tunneled catheter today
Assessment / Plan
Assessment / Plan
Impression:
89-year-old female history of ESRD on peritoneal dialysis here with inability to perform peritoneal dialysis due to suspected port obstruction.� Nephrology consulted recommending IR consult for management of peritoneal dialysis catheter and
placement of temporary dialysis catheter.�
Patient also noted to have hyponatremia and started on normal saline 3%
Sodium continue to improve
Hyperkalemia secondary to renal faliure.
Assessment/plan:
Clogged peritoneal dialysis catheter
ESRD on peritoneal dialysis at home
has not had in the past 2 days due to obstructed catheter
- Consult IR for Tunneled dialysis catheter
- Consulted Nephrology
- Plan is for possible dialysis today 08/30/2024
- Follow BMP
Severe hyponatremia.
NA 118
3% NA at 10 mL an hour
Nephrology consulted.
Sodium level improved to 122
Repeat BMP pending.
Hyperkalemia secondary CKD
S/P Lokelma 5 g in the ER
continue to monitor
Hyperuricemia
- Continue Febuxostat 40 mg daily
Daily alcohol use Wine 6 ounces with dinner
Last drink was 3 days ago
No sign of withdrawal, ordered Ativan for anxiety.
Anemia of chronic disease
- Hgb 10.5�appears near baseline
History of hypertension
-Continue Procardia XL 30 mg at bedtime
History of hyperlipidemia
-Continue Crestor 5 mg daily
Hypothyroidism
Continue Synthroid, repeat TSH pending
Recurrent UTIs
- Continue methenamine Hippurate 1 g p.o. at bedtime
Peripheral neuropathy
Continue gabapentin 300 mg at bedtime
GERD
- Continue omeprazole 20 mg every afternoon
DNR per patient emergency contact is her son Joshua herring
DVT prophylaxis:SCDs
Diet: NPO
Disposition: Tunneled catheter today
Total time spent on today's encounter was 65 minutes which included time spent in counseling the patient/family regarding diagnosis and treatment plan as listed above, goals of care, and symptom management. Case was discussed with nursing staff,
specialists, and care coordinators/case management. All labs and imaging personally reviewed by me. Remainder the time spent in detailed review of previous records, lab data, imaging, and other medical provider documentation.
Anticipated Discharge: 24 - 48 hours
Subjective/Interval History
-
Date of Service: August 30, 2024
Patient seen and examined at bedside, admitted last night with clogged peritoneal catheter-plan for HD catheter by IR today.
Patient denies chest pain shortness of breath, feeling tired, had nausea, and anxiety, ordered Ativan.
Objective Data
-
Labs:
Laboratory Results
08/30/24
06:49
WBC 5.7
Hgb 9.2 L
Hct 24.9 L
Plt Count 220
Sodium 122 L
Potassium 5.2 H
Chloride 90 L
Carbon Dioxide 18 L
BUN 100 H
Creatinine 10.1 H*
Glucose 61 L
Calcium 8.6
Total Bilirubin 0.6
AST 24
ALT 15
Alkaline Phosphatase 61
Vital Signs:
Vital Signs
Temp Pulse Resp BP Pulse Ox
97.8 F 65 17 160/64 94
08/30/24 08:00 08/30/24 08:24 08/30/24 08:00 08/30/24 08:24 08/30/24 08:51
I&O
08/29/24 08/30/24 08/31/24
06:59 06:59 06:59
Intake Total 240 / 240
Output Total 100 / 100
Balance 140 / 140
Physical Exam
-
General: Well Developed, Well Nourished, No Apparent Distress and Comfortable
HEENT: Normocephalic, Atraumatic, Moist Mucous Membranes, No Ptosis, PERRLA and Nose Appears Normal
Respiratory: Clear to Auscultation and Non Labored Respirations
Cardiac: Regular Rhythm and S1/S2
Breast: Deferred by me
GI: Soft, Nontender, Nondistended and Normal Bowel Sounds
Genito-urinary: No Costovertebral Tender
Musculoskeletal: No Clubbing, No Cyanosis and No Edema
Skin: Warm
Neuro: Awake, Alert, Oriented, AO x 3 and No Motor Deficits
Psych: Calm
Data Reviewed
-
Diagnostic Radiology: Image personally visualized and interpreted and Report Reviewed by me
CT Scan: Image personally visualized and interpreted and Report Reviewed by me
Ultrasound: Image personally visualized and interpreted and Report Reviewed by me
MRI: Image personally visualized and interpreted and Report Reviewed by me
Medical Tests (Nuc Med, Echo etc): Image personally visualized and interpreted and Report Reviewed by me
Labs: Labs Reviewed by me
Old Records: Reviewed
[2024-08-30 12:51] LABS: TSH Reflex To Free T4 0.32 uIU/ml (0.47-4.68)
[2024-08-30 13:10] LABS: Blood Urea Nitrogen 98 mg/dl (7-17); Calcium 8.8 mg/dl (8.4-10.2); Carbon Dioxide 18 mmol/L (22-30); Chloride 90 mmol/L (98-107); Glucose 54 mg/dl (70-99); Potassium 5.2 mmol/L (3.5-5.1); Sodium 123 mmol/L (135-145)
[2024-08-30 13:18] LABS: Estimated Creatinine Clearance 3 ml/min; eGFR 3.19
[2024-08-30] MEDS: DEXTROSE 50% SYRINGE 12.5 GRAMS IV (13:19)
[2024-08-30 13:32] LABS: Free T4 1.65 ng/dl (0.78-2.19)
[2024-08-30 13:44] LABS: Glucose - Point of Care 174 mg/dl (70-99)
[2024-08-30] MEDS: ANCEF 10 IV (14:09)
--- NOTE | 2024-08-30 15:17 | VNURNOTE ---
Chart reviewed. Prior to admission, pt was to start DH PT at home, but had not signed onto services yet. 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 Will watch for DC planning and will enter new referral if advised.
--- NOTE | 2024-08-30 15:33 | W.PN.NEPH.HD ---
Assessment
-
Patient seen for HD
sbp stable for u/f
Sodium bath adjusted to 130 as not to precipitate sudden rise in serum sodium as sodium this am 123
Progress Note - Hemodialysis
-
Date of Service: August 30, 2024
Duration: 3 hours
Potassium Bath: 2
Calcium Bath: 2
Opti-Dialyzer: 160
Ultrafiltration: Other (2kg)
Blood Flow: 400
Dialysate Flow: 600
Heparin: no
[2024-08-30 15:38] LABS: Glucose - Point of Care 136 mg/dl (70-99)
[2024-08-30] MEDS: MANNITOL 25% 12.5 GRAMS IV ×2 (15:45→16:55)
[2024-08-30 16:22] LABS: Hepatitis B Surface Antigen Negative (Negative)
[2024-08-30 16:40] LABS: Hepatitis B Core Ab, Total Negative (Negative); Hepatitis B Surface Antibody Negative; Hepatitis C Antibody Negative (Negative)
[2024-08-30] MEDS: PROTONIX 40 MG PO (17:30)
[2024-08-30 17:34] LABS: Glucose - Point of Care 74 mg/dl (70-99)
--- NOTE | 2024-08-30 18:12 | PTCARENOTE ---
Patient to IR for tunneled HD cath placement, labs resulted prior to transport showing glucose of 54. Patient NPO for procedure, states she does not have a hx of diabetes. This RN communicated with MD, 25g IV dextrose ordered per MD, stated to this
RN to give half of ordered dose and recheck sugar; sugar checked in IRAD for 174. This RN received patient back from procedure, patient initiated on HD in room by HD nurse. Diet order re-entered, patient maintained on q2hrx2 accuchecks per
hypoglycemic protocol. Vitals stable after procedure, patient drowsy but arousable, states no concerns at this time. 3% NaCl IV infusion stopped per nephro. Patient placed on air overlay, protective heel foams placed.
[2024-08-30] MEDS: HEPARIN 4300 UNITS INTRACATH (19:33)
[2024-08-30] MEDS: VITAMIN C 250 MG PO (22:58)
[2024-08-30] MEDS: HIPREX 1 GRAM PO (22:58)
[2024-08-30] MEDS: NEURONTIN 300 MG PO (22:58)
[2024-08-30] MEDS: PROCARDIA XL (EXTENDED RELEASE) 30 MG PO (23:03)
[2024-08-31] VITALS (8 sets, daily range): BP systolic 102–124; BP diastolic 46–65; PULSE 62; BMI 24.3
[2024-08-31 00:47] LABS: Blood Urea Nitrogen 29 mg/dl (7-17); Calcium 7.5 mg/dl (8.4-10.2); Carbon Dioxide 28 mmol/L (22-30); Chloride 95 mmol/L (98-107); Estimated Creatinine Clearance 7 ml/min; Glucose 181 mg/dl (70-99); Potassium 3.4 mmol/L (3.5-5.1); Sodium 130 mmol/L (135-145); eGFR 10.27
[2024-08-31 02:53] LABS: Glucose - Point of Care 105 mg/dl (70-99)
[2024-08-31] MEDS: TYLENOL 650 MG PO (03:46)
[2024-08-31] MEDS: ATIVAN 1 MG PO (03:47)
[2024-08-31] MEDS: SYNTHROID 112 MCG PO (05:25)
[2024-08-31 07:10] LABS: % Basophils 0.4 % (0-2); % Eosinophils 0.9 % (0-6); % Immature Granulocytes 0.4 % (0-0.5); % Lymphocytes 25.3 % (20.5-51.1); % Monocytes 14.5 % (1.7-9.3); % Neutrophils 58.5 % (42.2-75.2); Absolute Eosinophils 0.1 10^3/uL (0-0.7); Absolute Lymphocytes 1.4 10^3/uL (1.2-3.4); Absolute Monocytes 0.8 10^3/uL (0.1-0.6); Absolute Neutrophils 3.3 10^3/uL (1.4-6.5); Hematocrit 26.5 % (37.0-47.0); Hemoglobin 9.6 g/dL (12.0-16.0); Mean Corp Hgb Conc. 36.2 g/dL (33.0-37.0); Mean Corpuscular Hgb 31.8 pg (27.0-31.0); Mean Corpuscular Volume 87.7 fL (81.0-99.0); Mean Platelet Volume 9.1 fL (7.4-10.4); Nucleated Red Blood Cells % 0 %; Platelet Count 225 10^3/uL (130-400); Red Blood Cell Count 3.02 10^6/uL (4.20-5.40); Red Cell Dist. Width 12.3 % (11.5-14.5); White Blood Cell Count 5.6 10^3/uL (4.8-10.8)
[2024-08-31 08:00] LABS: Blood Urea Nitrogen 33 mg/dl (7-17); Calcium 7.8 mg/dl (8.4-10.2); Carbon Dioxide 25 mmol/L (22-30); Chloride 95 mmol/L (98-107); Estimated Creatinine Clearance 6 ml/min; Glucose 76 mg/dl (70-99); Potassium 3.7 mmol/L (3.5-5.1); Sodium 130 mmol/L (135-145); eGFR 8.91
[2024-08-31] MEDS: CRESTOR 5 MG PO (08:54)
[2024-08-31] MEDS: ULORIC 40 MG PO (08:54)
[2024-08-31] MEDS: NEPHROCAP 1 CAPSULE PO (08:55)
[2024-08-31] MEDS: LASIX 80 MG PO (08:55)
[2024-08-31] MEDS: HEPARIN 5000 UNITS SC ×2 (08:55→20:14)
[2024-08-31] MEDS: VITAMIN D3 (cholecalciferol) 50 MCG PO (08:56)
--- NOTE | 2024-08-31 10:59 | W.PN.HOSP.TC ---
Today's Communication/Plan
-
Monitor electrolytes
Assessment / Plan
Assessment / Plan
Impression:
89-year-old female history of ESRD on peritoneal dialysis here with inability to perform peritoneal dialysis due to suspected port obstruction.� Nephrology consulted recommending IR consult for management of peritoneal dialysis catheter and
placement of dialysis catheter.�
Patient also noted to have hyponatremia and started on normal saline 3%
Sodium continue to improve
Hyperkalemia secondary to renal faliure.
Status post tunneled catheter, and hemodialysis.
Patient received Ativan for anxiety but was very sleepy, will discontinue.
Assessment/plan:
Clogged peritoneal dialysis catheter
ESRD on peritoneal dialysis at home
has not had in the past 2 days due to obstructed catheter
- Consult IR for Tunneled dialysis catheter
- Consulted Nephrology
- Plan is for possible dialysis today 08/30/2024
- Follow BMP
08/31
Status post dialysis
Severe hyponatremia.
NA 118
3% NA at 10 mL an hour
Nephrology consulted.
Sodium level improved to 122
Repeat BMP pending.
08/31
Continue to improve
Hyperkalemia secondary CKD
S/P Lokelma 5 g in the ER
continue to monitor
08/31
Resolved
Anxiety.
Patient received Ativan.
Patient is very sleepy, will discontinue
Hyperuricemia
- Continue Febuxostat 40 mg daily
Daily alcohol use Wine 6 ounces with dinner
Last drink was 3 days ago
No sign of withdrawal, ordered Ativan for anxiety.
Anemia of chronic disease
- Hgb 10.5�appears near baseline
History of hypertension
-Continue Procardia XL 30 mg at bedtime
History of hyperlipidemia
-Continue Crestor 5 mg daily
Hypothyroidism
Continue Synthroid, repeat TSH pending
Recurrent UTIs
- Continue methenamine Hippurate 1 g p.o. at bedtime
Peripheral neuropathy
Continue gabapentin 300 mg at bedtime
GERD
- Continue omeprazole 20 mg every afternoon
DNR per patient emergency contact is her son Joshua herring
DVT prophylaxis:SCDs
Diet: 2 g of salt
Disposition: Continue dialysis, patient will need arrangement for outpatient HD.
Total time spent on today's encounter was 65 minutes which included time spent in counseling the patient/family regarding diagnosis and treatment plan as listed above, goals of care, and symptom management. Case was discussed with nursing staff,
specialists, and care coordinators/case management. All labs and imaging personally reviewed by me. Remainder the time spent in detailed review of previous records, lab data, imaging, and other medical provider documentation.
Anticipated Discharge: 24 - 48 hours
Subjective/Interval History
-
Date of Service: August 31, 2024
Patient seen and examined at bedside.
Status post tunneled catheter.
Status post hemodialysis yesterday.
Patient is sleepy during conversation.
Objective Data
-
Labs:
Laboratory Results
08/31/24 08/31/24
00:05 06:37
WBC 5.6
Hgb 9.6 L
Hct 26.5 L
Plt Count 225
Sodium 130 L 130 L
Potassium 3.4 L D 3.7
Chloride 95 L 95 L
Carbon Dioxide 28 25
BUN 29 H 33 H
Creatinine 4.0 H 4.5 H*
Glucose 181 H 76
Calcium 7.5 L 7.8 L
Vital Signs:
Vital Signs
Temp Pulse Resp BP Pulse Ox
97.3 F 61 17 112/46 95
08/31/24 07:55 08/31/24 08:55 08/31/24 07:55 08/31/24 08:55 08/31/24 10:30
I&O
08/30/24 08/31/24 09/01/24
06:59 06:59 06:59
Intake Total 240 / 240 700 / 700
Output Total 100 / 100
Balance 140 / 140 700 / 700
Physical Exam
-
General: Well Developed, Well Nourished, No Apparent Distress and Comfortable
HEENT: Normocephalic, Atraumatic, Moist Mucous Membranes, No Ptosis, PERRLA and Nose Appears Normal
Respiratory: Clear to Auscultation and Non Labored Respirations
Cardiac: Regular Rhythm and S1/S2
Breast: Deferred by me
GI: Soft, Nontender, Nondistended and Normal Bowel Sounds
Genito-urinary: No Costovertebral Tender
Musculoskeletal: No Clubbing, No Cyanosis and No Edema
Skin: Warm
Neuro: Awake, Alert, Oriented, AO x 3 and No Motor Deficits
Psych: Calm
--- NOTE | 2024-08-31 11:18 | W.PN.NEPH.PH ---
Today's Communication / Plan
-
next HD Monday
pending [facility]
Assessment/Plan
-
IMP:
Essential hypertension
Hypercholesterolemia
Raynaud's disease
Chronic anemia of renal disease
Gout
ESRD on PD, failure of PD catheter
Plan:
Now with tunneled catheter
HD Monday
Will need to be coordinated with [facility] hemodialysis unit for discharge
flush PD catheter for PD fluid evaluation
PD fluid was without evidence of infection in regards to cell count and culture
d/w patient and children
-
-
Date of Service: August 31, 2024
CC / HPI / ROS
-
Chief Complaint:
ESRD
History of Present Illness:
ESRD currently on Monday schedule transitioning from PD
Hemodynamically
Sodium up to 130 following dialysis on 08/30/2024
Review of Systems:
Lethargic but interact
No fevers
No reported chest pain or shortness of breath
Now with tunneled catheter
Labs
-
Labs:
WBC 5.6 10^3/uL (4.8-10.8) 08/31/24 06:37
RBC 3.02 10^6/uL (4.20-5.40) L 08/31/24 06:37
Hgb 9.6 g/dL (12.0-16.0) L 08/31/24 06:37
Hct 26.5 % (37.0-47.0) L 08/31/24 06:37
Plt Count 225 10^3/uL (130-400) 08/31/24 06:37
Sodium 130 mmol/L (135-145) L 08/31/24 06:37
Potassium 3.7 mmol/L (3.5-5.1) 08/31/24 06:37
Chloride 95 mmol/L (98-107) L 08/31/24 06:37
Carbon Dioxide 25 mmol/L (22-30) 08/31/24 06:37
BUN 33 mg/dl (7-17) H 08/31/24 06:37
Creatinine 4.5 mg/dL (0.6-1.0) H* 08/31/24 06:37
eGFR 8.91 08/31/24 06:37
Glucose 76 mg/dl (70-99) 08/31/24 06:37
Calcium 7.8 mg/dl (8.4-10.2) L 08/31/24 06:37
Phosphorus 10.0 mg/dl (2.5-4.5) H 08/29/24 12:35
Albumin 3.3 g/dl (3.5-5.0) L 08/30/24 06:49
Physical Exam
-
Vital Signs:
Vital Signs
Temp Pulse Resp BP Pulse Ox
97.3 F 61 17 112/46 95
08/31/24 07:55 08/31/24 08:55 08/31/24 07:55 08/31/24 08:55 08/31/24 10:30
Cardiovascular:: Regular rate and rhythm
Respiratory:: Bilateral: CTA
Lung Excursion:: Normal
Abdomen:: Nontender and Soft
Bowel Sounds:: Normal
Extremity Edema:: None: Bilateral:
--- NOTE | 2024-08-31 15:54 | CM ---
Pt known to [facility] for Peritoneal dialysis. [facility]
CM to follow up on Monday.
[2024-08-31] MEDS: PROTONIX 40 MG PO (17:53)
[2024-08-31] MEDS: PROCARDIA XL (EXTENDED RELEASE) 30 MG PO (22:48)
[2024-08-31] MEDS: VITAMIN C 250 MG PO (22:48)
[2024-08-31] MEDS: HIPREX 1 GRAM PO (22:48)
[2024-08-31] MEDS: NEURONTIN 300 MG PO (22:48)
[2024-09-01] MEDS: MELATONIN 5 MG PO (00:08)
[2024-09-01] MEDS: MELATONIN 3 MG PO (01:30)
[2024-09-01 03:29] VITALS: BP 116/53
[2024-09-01 05:07] VITALS: BMI 24.6
[2024-09-01] MEDS: SYNTHROID 112 MCG PO (06:05)
--- NOTE | 2024-09-01 06:37 | W.PN.UPDATE ---
Update Note
Progress Note Update
pt with increased anxiety this morning. Restless. PDMP reviewed- has taken and tolerated xanax in past. will order a small dose 0.25mg
[2024-09-01] MEDS: XANAX 0.25 MG PO ×2 (06:39→13:37)
[2024-09-01 07:10] VITALS: BP 114/56
[2024-09-01 07:53] LABS: % Basophils 0.3 % (0-2); % Eosinophils 1.4 % (0-6); % Immature Granulocytes 0.3 % (0-0.5); % Lymphocytes 23.8 % (20.5-51.1); % Monocytes 13.8 % (1.7-9.3); % Neutrophils 60.4 % (42.2-75.2); Absolute Eosinophils 0.1 10^3/uL (0-0.7); Absolute Lymphocytes 1.6 10^3/uL (1.2-3.4); Absolute Monocytes 0.9 10^3/uL (0.1-0.6); Hematocrit 25.6 % (37.0-47.0); Mean Corp Hgb Conc. 35.2 g/dL (33.0-37.0); Mean Corpuscular Hgb 31.8 pg (27.0-31.0); Mean Corpuscular Volume 90.5 fL (81.0-99.0); Mean Platelet Volume 9.7 fL (7.4-10.4); Nucleated Red Blood Cells % 0 %; Platelet Count 223 10^3/uL (130-400); Red Blood Cell Count 2.83 10^6/uL (4.20-5.40); Red Cell Dist. Width 12.6 % (11.5-14.5); White Blood Cell Count 6.6 10^3/uL (4.8-10.8)
[2024-09-01 08:19] LABS: Blood Urea Nitrogen 42 mg/dl (7-17); Calcium 8.6 mg/dl (8.4-10.2); Carbon Dioxide 24 mmol/L (22-30); Chloride 94 mmol/L (98-107); Estimated Creatinine Clearance 4 ml/min; Glucose 87 mg/dl (70-99); Potassium 3.4 mmol/L (3.5-5.1); Sodium 127 mmol/L (135-145); eGFR 5.95
[2024-09-01] MEDS: ULORIC 40 MG PO (08:38)
[2024-09-01] MEDS: HEPARIN 5000 UNITS SC ×2 (08:38→20:28)
[2024-09-01] MEDS: VITAMIN D3 (cholecalciferol) 50 MCG PO (08:38)
[2024-09-01] MEDS: CRESTOR 5 MG PO (08:39)
[2024-09-01] MEDS: LASIX 80 MG PO (08:40)
[2024-09-01] MEDS: NEPHROCAP 1 CAPSULE PO (08:42)
--- NOTE | 2024-09-01 10:42 | W.PN.NEPH.PH ---
Today's Communication / Plan
-
Dialysis tomorrow
Assessment/Plan
-
IMP:
Essential hypertension
Hypercholesterolemia
Raynaud's disease
Chronic anemia of renal disease
Gout
ESRD on PD, failure of PD catheter
Plan:
Now with tunneled catheter
HD Monday then discharge if HD spot confirmed
Will need to be coordinated with [facility] hemodialysis unit for discharge
PD fluid was without evidence of infection in regards to cell count and culture
d/w patient
-
-
Date of Service: September 01, 2024
CC / HPI / ROS
-
Chief Complaint:
ESRD
History of Present Illness:
ESRD currently on Monday schedule transitioning from PD
Hemodynamically stable
Review of Systems:
Anxious overnight
No fevers
No reported chest pain or shortness of breath
Now with tunneled catheter
Labs
-
Labs:
WBC 6.6 10^3/uL (4.8-10.8) 09/01/24 05:54
RBC 2.83 10^6/uL (4.20-5.40) L 09/01/24 05:54
Hgb 9.0 g/dL (12.0-16.0) L 09/01/24 05:54
Hct 25.6 % (37.0-47.0) L 09/01/24 05:54
Plt Count 223 10^3/uL (130-400) 09/01/24 05:54
Sodium 127 mmol/L (135-145) L 09/01/24 05:54
Potassium 3.4 mmol/L (3.5-5.1) L 09/01/24 05:54
Chloride 94 mmol/L (98-107) L 09/01/24 05:54
Carbon Dioxide 24 mmol/L (22-30) 09/01/24 05:54
BUN 42 mg/dl (7-17) H 09/01/24 05:54
Creatinine 6.3 mg/dL (0.6-1.0) H* 09/01/24 05:54
eGFR 5.95 09/01/24 05:54
Glucose 87 mg/dl (70-99) 09/01/24 05:54
Calcium 8.6 mg/dl (8.4-10.2) 09/01/24 05:54
Phosphorus 10.0 mg/dl (2.5-4.5) H 08/29/24 12:35
Albumin 3.3 g/dl (3.5-5.0) L 08/30/24 06:49
Physical Exam
-
Vital Signs:
Vital Signs
Temp Pulse Resp BP Pulse Ox
98.6 F 63 16 114/56 92
09/01/24 07:10 09/01/24 08:40 09/01/24 07:10 09/01/24 08:40 09/01/24 07:10
Cardiovascular:: Regular rate and rhythm
Respiratory:: Bilateral: CTA
Lung Excursion:: Normal
Abdomen:: Nontender and Soft
Bowel Sounds:: Normal
Extremity Edema:: None: Bilateral:
--- NOTE | 2024-09-01 11:10 | W.PN.HOSP.TC ---
Today's Communication/Plan
-
Pending arrangement for outpatient HD
Assessment / Plan
Assessment / Plan
Impression:
89-year-old female history of ESRD on peritoneal dialysis here with inability to perform peritoneal dialysis due to suspected port obstruction.� Nephrology consulted recommending IR consult for management of peritoneal dialysis catheter and
placement of dialysis catheter.�
Patient also noted to have hyponatremia and started on normal saline 3%
Sodium continue to improve
Hyperkalemia secondary to renal faliure.
Status post tunneled catheter, and hemodialysis.
Patient received Ativan for anxiety but was very sleepy, used to be on Xanax, will resume at low-dose at night.
Assessment/plan:
Clogged peritoneal dialysis catheter
ESRD on peritoneal dialysis at home
has not had in the past 2 days due to obstructed catheter
- Consult IR for Tunneled dialysis catheter
- Consulted Nephrology
- Plan is for possible dialysis today 08/30/2024
- Follow BMP
08/31
Status post dialysis
09/01
senior national account manager consulted for arrangement for outpatient hemodialysis.
Severe hyponatremia.
NA 118
3% NA at 10 mL an hour
Nephrology consulted.
Sodium level improved to 122
Repeat BMP pending.
08/31
Continue to improve
09/01
Sodium 127
Hyperkalemia secondary CKD
S/P Lokelma 5 g in the ER
continue to monitor
08/31
Resolved
09/01
Now with hypokalemia.
Will give low-dose KCl
Anxiety.
Patient received Ativan.
Patient is very sleepy,
Used to be on Xanax, discussed with daughter on the phone who is a doctor.
Will resume at low dose at night prn.
Hyperuricemia
- Continue Febuxostat 40 mg daily
Daily alcohol use Wine 6 ounces with dinner
Last drink was 3 days ago
No sign of withdrawal.
Anemia of chronic disease
appears near baseline
History of hypertension
-Continue Procardia XL 30 mg at bedtime
Results of hypertension, added parameters to Procardia xl
History of hyperlipidemia
-Continue Crestor 5 mg daily
Hypothyroidism
Continue Synthroid, repeat TSH pending
Recurrent UTIs
- Continue methenamine Hippurate 1 g p.o. at bedtime
Peripheral neuropathy
Continue gabapentin 300 mg at bedtime
GERD
- Continue omeprazole 20 mg every afternoon
DNR per patient emergency contact is her son Joshua herring
DVT prophylaxis:SCDs
Diet: 2 g of salt
Family communication: Discussed with daughter in the phone.
Disposition: Continue dialysis, patient will need arrangement for outpatient HD.
Total time spent on today's encounter was 65 minutes which included time spent in counseling the patient/family regarding diagnosis and treatment plan as listed above, goals of care, and symptom management. Case was discussed with nursing staff,
specialists, and care coordinators/case management. All labs and imaging personally reviewed by me. Remainder the time spent in detailed review of previous records, lab data, imaging, and other medical provider documentation.
Anticipated Discharge: 24 - 48 hours
Subjective/Interval History
-
Date of Service: September 01, 2024
Patient seen and examined at bedside, patient with anxiety, received Xanax, otherwise patient denies any chest pain or shortness of breath, no abdominal pain, no nausea, no vomiting, no diarrhea or constipation.
Objective Data
-
Labs:
Laboratory Results
09/01/24
05:54
WBC 6.6
Hgb 9.0 L
Hct 25.6 L
Plt Count 223
Sodium 127 L
Potassium 3.4 L
Chloride 94 L
Carbon Dioxide 24
BUN 42 H
Creatinine 6.3 H*
Glucose 87
Calcium 8.6
Vital Signs:
Vital Signs
Temp Pulse Resp BP Pulse Ox
98.6 F 63 16 114/56 92
09/01/24 07:10 09/01/24 08:40 09/01/24 07:10 09/01/24 08:40 09/01/24 07:10
I&O
08/31/24 09/01/24 09/02/24
06:59 06:59 06:59
Intake Total 700 / 700 960 / 960
Balance 700 / 700 960 / 960
Physical Exam
-
General: Well Developed, Well Nourished, No Apparent Distress and Comfortable
HEENT: Normocephalic, Atraumatic, Moist Mucous Membranes, No Ptosis, PERRLA and Nose Appears Normal
Respiratory: Clear to Auscultation, Non Labored Respirations and Other (Right-sided tunneled HD cath)
Cardiac: Regular Rhythm and S1/S2
Breast: Deferred by me
GI: Soft, Nontender, Nondistended and Normal Bowel Sounds
Genito-urinary: No Costovertebral Tender
Musculoskeletal: No Clubbing, No Cyanosis and No Edema
Skin: Warm
Neuro: Awake, Alert, Oriented, AO x 3 and No Motor Deficits
Psych: Calm
Data Reviewed
-
Diagnostic Radiology: Image personally visualized and interpreted and Report Reviewed by me
CT Scan: Image personally visualized and interpreted and Report Reviewed by me
Ultrasound: Image personally visualized and interpreted and Report Reviewed by me
MRI: Image personally visualized and interpreted and Report Reviewed by me
Medical Tests (Nuc Med, Echo etc): Image personally visualized and interpreted and Report Reviewed by me
Labs: Labs Reviewed by me
Old Records: Reviewed
[2024-09-01 11:15] VITALS: BP 113/52
[2024-09-01] MEDS: KCL 10 MEQ PO (12:59)
[2024-09-01 15:15] VITALS: BP 113/50
--- NOTE | 2024-09-01 15:56 | CM ---
CM following re: d/c planning.
Pt on peritoneal dialysis, affiliated with [facility].
She is now transitioning to HD.
Daughter would like a referral to [facility] also.
CM to contact [facility] during business hours to make arrangements.
--- NOTE | 2024-09-01 16:24 | PTCARENOTE ---
Patient c/o pain at her HD cath site; site appears red and swollen; Iam from VAT team assessed the site; Dr. Tavares made aware (per VAT RN request); ice pack applied to site.
--- NOTE | 2024-09-01 18:00 | PTCARENOTE ---
Patient had 3 loose bowel movements; stool sample sent to r/o c-diff; patient placed on Enhanced precautions until further notice.
[2024-09-01] MEDS: PROTONIX 40 MG PO (18:04)
[2024-09-01 19:32] VITALS: BP 133/57
[2024-09-01] MEDS: HIPREX 1 GRAM PO (22:07)
[2024-09-01] MEDS: VITAMIN C 250 MG PO (22:07)
[2024-09-01] MEDS: PROCARDIA XL (EXTENDED RELEASE) PO ×2 (22:09→22:14)
[2024-09-01] MEDS: NEURONTIN 300 MG PO (22:09)
[2024-09-01 23:36] VITALS: BP 125/59
[2024-09-02] MEDS: XANAX 0.25 MG PO ×3 (01:01→16:21)
[2024-09-02] MEDS: TYLENOL 650 MG PO ×3 (02:44→15:54)
[2024-09-02] MEDS: SYNTHROID 112 MCG PO (05:47)
[2024-09-02 05:51] VITALS: BMI 25.3
[2024-09-02 07:05] VITALS: BP 106/42
[2024-09-02 07:47] LABS: Hematocrit 24.8 % (37.0-47.0); Hemoglobin 8.6 g/dL (12.0-16.0); Mean Corp Hgb Conc. 34.7 g/dL (33.0-37.0); Mean Corpuscular Hgb 31.5 pg (27.0-31.0); Mean Corpuscular Volume 90.8 fL (81.0-99.0); Mean Platelet Volume 9.8 fL (7.4-10.4); Platelet Count 230 10^3/uL (130-400); Red Blood Cell Count 2.73 10^6/uL (4.20-5.40); Red Cell Dist. Width 12.7 % (11.5-14.5); White Blood Cell Count 7.5 10^3/uL (4.8-10.8)
[2024-09-02 07:48] LABS: Blood Urea Nitrogen 55 mg/dl (7-17); Calcium 8.8 mg/dl (8.4-10.2); Carbon Dioxide 22 mmol/L (22-30); Chloride 93 mmol/L (98-107); Estimated Creatinine Clearance 4 ml/min; Glucose 77 mg/dl (70-99); Potassium 3.5 mmol/L (3.5-5.1); Sodium 126 mmol/L (135-145); eGFR 4.75
--- NOTE | 2024-09-02 08:24 | W.PN.HOSP.TC ---
Today's Communication/Plan
-
Discharge planning
Assessment / Plan
Assessment / Plan
Physical exam:
General: Well Developed, Well Nourished and No Apparent Distress
HEENT: Normocephalic, Atraumatic and Moist Mucous Membranes
Respiratory: Clear to Auscultation; Negative Wheezes, Rales or Rhonchi
Cardiac: Regular Rhythm and S1/S2
GI: Soft, Nontender and Nondistended
Musculoskeletal: No Clubbing, No Cyanosis and No Edema
Neuro: Awake, Alert and Oriented
Psych: Calm
A/P:
Impression:
89-year-old female history of ESRD on peritoneal dialysis here with inability to perform peritoneal dialysis due to suspected port obstruction.� Nephrology consulted recommending IR consult for management of peritoneal dialysis catheter and
placement of dialysis catheter.�
Patient also noted to have hyponatremia and started on normal saline 3%
Sodium continue to improve
Hyperkalemia secondary to renal faliure.
Status post tunneled catheter, and hemodialysis.
Patient received Ativan for anxiety but was very sleepy, used to be on Xanax, will resume at low-dose at night.
Assessment/plan:
Clogged peritoneal dialysis catheter
ESRD on peritoneal dialysis at home
has not had in the past 2 days due to obstructed catheter
- Consult IR for Tunneled dialysis catheter
- Consulted Nephrology
- Plan is for possible dialysis today 08/30/2024
- Follow BMP
08/31
Status post dialysis
09/01
manager spa consulted for arrangement for outpatient hemodialysis.
Severe hyponatremia.
NA 118
3% NA at 10 mL an hour
Nephrology consulted.
Sodium level improved to 122
Repeat BMP pending.
08/31
Continue to improve
09/01
Sodium 127
09/02
Sodium 126
Continue HD per Nephrology
Discussed with son at bedside today
Medically stable for discharge-awaiting for senior case manager for HD set up as outpatient as soon as accepted by [facility]
Hyperkalemia secondary CKD
S/P Lokelma 5 g in the ER
continue to monitor
08/31
Resolved
09/01
Now with hypokalemia.
Will give low-dose KCl
09/02
K stable today, 3.5
Anxiety.
Patient received Ativan.
Patient is very sleepy,
Used to be on Xanax, discussed with daughter on the phone who is a doctor.
Will resume at low dose at night prn.
Hyperuricemia
- Continue Febuxostat 40 mg daily
Daily alcohol use Wine 6 ounces with dinner
Last drink was 3 days ago
No sign of withdrawal.
Anemia of chronic disease
appears near baseline
History of hypertension
-Continue Procardia XL 30 mg at bedtime
Results of hypertension, added parameters to Procardia xl
History of hyperlipidemia
-Continue Crestor 5 mg daily
Hypothyroidism
Continue Synthroid, repeat TSH 0.32, F T4 normal--> repeat TFT in 6 weeks
Recurrent UTIs
- Continue methenamine Hippurate 1 g p.o. at bedtime
Peripheral neuropathy
Continue gabapentin 300 mg at bedtime
GERD
- Continue omeprazole 20 mg every afternoon
DNR per patient emergency contact is her son Joshua herring
DVT prophylaxis:SCDs
Diet: 2 g of salt
Family communication: Discussed with daughter in the phone.
Disposition: Continue dialysis, patient will need arrangement for outpatient HD.
Anticipated Discharge: Today
Subjective/Interval History
-
Date of Service: September 02, 2024
No new complaints. No shortness of breath.
Objective Data
-
Labs:
Laboratory Results
09/02/24
06:33
WBC 7.5
Hgb 8.6 L
Hct 24.8 L
Plt Count 230
Sodium 126 L
Potassium 3.5
Chloride 93 L
Carbon Dioxide 22
BUN 55 H
Creatinine 7.6 H*
Glucose 77
Calcium 8.8
Vital Signs:
Vital Signs
Temp Pulse Resp BP Pulse Ox
97.3 F 67 16 106/42 90
09/02/24 07:05 09/02/24 07:05 09/02/24 07:05 09/02/24 07:05 09/02/24 07:05
I&O
09/01/24 09/02/24 09/03/24
06:59 06:59 06:59
Intake Total 960 / 960 1440 / 1440
Output Total 810 / 810
Balance 960 / 960 630 / 630
[2024-09-02] MEDS: NEPHROCAP 1 CAPSULE PO (08:40)
[2024-09-02] MEDS: LASIX 80 MG PO (08:40)
[2024-09-02] MEDS: VITAMIN D3 (cholecalciferol) 50 MCG PO (08:40)
[2024-09-02] MEDS: ULORIC 40 MG PO (08:40)
[2024-09-02] MEDS: CRESTOR 5 MG PO (08:40)
[2024-09-02] MEDS: HEPARIN 5000 UNITS SC ×2 (08:41→21:22)
--- NOTE | 2024-09-02 10:52 | CM ---
Addendum entered by Denis Brandt 09/03/24 09:51:
Confirmed w/ [facility] chair times for patient. First session on at 6 am.
Therapy rec home PT and VN, discussed w/ family and patient and is agreeable. [facility] referral placed in [facility]
Updated daughter and son
IMM verbally reviewed
Addendum entered by Denis Brandt 09/03/24 09:15:
Spoke w/ patient's daughter, Angeles, who shared she spoke w/ a SW at [facility] w/ a tentative chair time on 09/05 at 6 am. Tentative chair times are , , Sat at 6 am.
CM spoke w/ [facility] admissions, confirmed that patient has tentative chair time on , not yet confirmed. Requested for demographics and copy of insurance card to be faxed. Once received and chair times confirmed, will give CM a call back.
Requesting docs faxed to admissions
Patient can possibly d/c home today
[facility]

Plan: Home w/ OP HD at [facility]
Original Note:
Chart reviewed. Patient will need OP HD set up at d/c. Patient is currently receiving PD at [facility]
CM placed call to [facility], spoke w/ Rhoda, informed that a referral was placed in [facility] on Monday. Rhoda shared referrals are not pulled over the weekend and a reviewer will likely review it today. CM was provided fax number to send referral
that way as well to ensure all documents are sent and received.
CM faxed all clinicals to [facility]- [phone]
Updated patient and sonMinor at bedside
If accepted at [facility], patient can likely d/c today
Plan: Home. OP HD at [facility], pending acceptance
[2024-09-02 11:13] VITALS: BP 105/50
[2024-09-02] MEDS: MANNITOL 25% 12.5 GRAMS IV ×2 (13:19→14:43)
[2024-09-02] MEDS: RETACRIT 6000 UNITS IV (13:22)
[2024-09-02] MEDS: HEPARIN 2200 UNITS INTRACATH (14:44)
[2024-09-02 15:10] VITALS: BP 113/47
--- NOTE | 2024-09-02 16:10 | W.PN.NEPH.HD ---
Assessment
-
pt seen during HD
vitals stable
UF as tolerates
c/o urine retention and requiring SC -primary team aware
hoping a she becomes active likely will improve
PD catheter removal per her primary nephrology at [facility]
CVC functions well
d/c plan
d/w pt and primary
Progress Note - Hemodialysis
-
Date of Service: September 02, 2024
Duration: 15 minutes and 3 hours
Potassium Bath: 3
Calcium Bath: 2.5
Opti-Dialyzer: 160
Ultrafiltration: Other (2kg)
Blood Flow: 400
Dialysate Flow: 600
Heparin: no
EPO: 6000
[2024-09-02] MEDS: PROTONIX 40 MG PO (17:15)
[2024-09-02 20:21] VITALS: BP 112/45
[2024-09-02] MEDS: HIPREX 1 GRAM PO (21:57)
[2024-09-02] MEDS: NEURONTIN 300 MG PO (21:57)
[2024-09-02] MEDS: VITAMIN C 250 MG PO (21:57)
[2024-09-02] MEDS: PROCARDIA XL (EXTENDED RELEASE) PO (21:57)
[2024-09-03] MEDS: XANAX 0.25 MG PO (00:18)
[2024-09-03 03:16] VITALS: BP 120/45
[2024-09-03 06:00] VITALS: BMI 24.9
[2024-09-03] MEDS: SYNTHROID 112 MCG PO (06:26)
[2024-09-03 07:45] VITALS: BP 145/59
--- NOTE | 2024-09-03 08:59 | W.PN.URO.CBU ---
Today's Communication / Plan
-
keep branch teach branch and leg bag care please
Assessment / Plan
-
acute retention of unknown etiology Suggest discharge with branch and we will see in office and evaluate possibly teach cic
Diagnosis
-
Date of Service: September 03, 2024
-
Patient Diagnosis:acute urinary retention
Post Op Day:
Subjective
-
branch is tolerable
Objective
-
Vital Signs
Temp Pulse Resp BP Pulse Ox
97.7 F 70 18 145/59 93
09/03/24 07:45 09/03/24 07:45 09/03/24 07:45 09/03/24 07:45 09/03/24 07:45
Intake and Output
09/02/24 09/03/24 09/04/24
06:59 06:59 06:59
Intake Total 1440 / 1440 600 / 600
Output Total 810 / 810 900 / 900
Balance 630 / 630 -300 / -300
Intake:
Oral fluids 1440 / 1440 600 / 600
Output:
Urine, Voided 400 / 400 450 / 450
Straight cath output 410 / 410 450 / 450
Other:
Number of unmeasured liquid
stools
Rectum 3
Review of Systems
-
: Difficulty Voiding
Physical Exam
-
General - well developed, well nourished, no acute distress
Chest - clear bilaterally
Abdomen - soft, non-tender, positive bowel sounds, no CVAT, no incisional pain or distention
Genitalia - normal
Rectal - normal
Skin - warm & dry with no rash
Neuro - AOx3, no motor deficits
Extremities - no clubbing, no cyanosis, no edema
Care Review
Data Reviewed
Discussed with: Nursing
[2024-09-03 09:23] LABS: Hematocrit 26.7 % (37.0-47.0); Hemoglobin 9.1 g/dL (12.0-16.0); Mean Corp Hgb Conc. 34.1 g/dL (33.0-37.0); Mean Corpuscular Hgb 31.3 pg (27.0-31.0); Mean Corpuscular Volume 91.8 fL (81.0-99.0); Mean Platelet Volume 9.1 fL (7.4-10.4); Platelet Count 228 10^3/uL (130-400); Red Blood Cell Count 2.91 10^6/uL (4.20-5.40); Red Cell Dist. Width 12.8 % (11.5-14.5); White Blood Cell Count 4.9 10^3/uL (4.8-10.8)
--- NOTE | 2024-09-03 09:30 | W.PN.HOSP.TC ---
Today's Communication/Plan
-
Discharge planning today
Assessment / Plan
Assessment / Plan
Physical exam:
General: Well Developed, Well Nourished and No Apparent Distress
HEENT: Normocephalic, Atraumatic and Moist Mucous Membranes
Respiratory: Clear to Auscultation; Negative Wheezes, Rales or Rhonchi
Cardiac: Regular Rhythm and S1/S2
GI: Soft, Nontender and Nondistended
Musculoskeletal: No Clubbing, No Cyanosis and No Edema
Neuro: Awake, Alert and Oriented
Psych: Calm
A/P:
Impression:
89-year-old female history of ESRD on peritoneal dialysis here with inability to perform peritoneal dialysis due to suspected port obstruction.� Nephrology consulted recommending IR consult for management of peritoneal dialysis catheter and
placement of dialysis catheter.�
Patient also noted to have hyponatremia and started on normal saline 3%
Sodium continue to improve
Hyperkalemia secondary to renal faliure.
Status post tunneled catheter, and hemodialysis.
Patient received Ativan for anxiety but was very sleepy, used to be on Xanax, will resume at low-dose at night.
Assessment/plan:
Clogged peritoneal dialysis catheter
ESRD on peritoneal dialysis at home
has not had in the past 2 days due to obstructed catheter
- Consult IR for Tunneled dialysis catheter
- Consulted Nephrology
- Plan is for possible dialysis today 08/30/2024
- Follow BMP
08/31
Status post dialysis
09/01
manager real estate consulted for arrangement for outpatient hemodialysis.
Severe hyponatremia.
NA 118
3% NA at 10 mL an hour
Nephrology consulted.
Sodium level improved to 122
Repeat BMP pending.
08/31
Continue to improve
09/01
Sodium 127
09/02
Sodium 126
Continue HD per Nephrology
Discussed with son at bedside today
Medically stable for discharge-awaiting for medical case manager for HD set up as outpatient as soon as accepted by [facility]
09/03
Medically ready for discharge
Discussed with daughter over the phone who is a PAINTER AND DECORATOR
Discussed with son at bedside
Hyperkalemia secondary CKD
S/P Lokelma 5 g in the ER
continue to monitor
08/31
Resolved
09/01
Now with hypokalemia.
Will give low-dose KCl
09/02
K stable today, 3.5
Anxiety.
Patient received Ativan.
Patient is very sleepy,
Used to be on Xanax, discussed with daughter on the phone who is a doctor.
Will resume at low dose at night prn.
Hyperuricemia
- Continue Febuxostat 40 mg daily
Daily alcohol use Wine 6 ounces with dinner
Last drink was 3 days ago
No sign of withdrawal.
Anemia of chronic disease
appears near baseline
History of hypertension
-Continue Procardia XL 30 mg at bedtime
Results of hypertension, added parameters to Procardia xl
History of hyperlipidemia
-Continue Crestor 5 mg daily
Hypothyroidism
Continue Synthroid, repeat TSH 0.32, F T4 normal--> repeat TFT in 6 weeks
Recurrent UTIs
- Continue methenamine Hippurate 1 g p.o. at bedtime
Peripheral neuropathy
Continue gabapentin 300 mg at bedtime
GERD
- Continue omeprazole 20 mg every afternoon
DNR per patient emergency contact is her son Joshua herring
DVT prophylaxis:SCDs
Diet: 2 g of salt
Family communication: Discussed with daughter in the phone.
Disposition: Continue dialysis, patient will need arrangement for outpatient HD.
Anticipated Discharge: Today
Subjective/Interval History
-
Date of Service: September 03, 2024
No new complaints.
Objective Data
-
Labs:
Laboratory Results
09/03/24
09:09
WBC 4.9
Hgb 9.1 L
Hct 26.7 L
Plt Count 228
Sodium Pending
Potassium Pending
Chloride Pending
Carbon Dioxide Pending
BUN Pending
Creatinine Pending
Glucose Pending
Calcium Pending
Vital Signs:
Vital Signs
Temp Pulse Resp BP Pulse Ox
97.7 F 70 18 145/59 93
09/03/24 07:45 09/03/24 07:45 09/03/24 07:45 09/03/24 07:45 09/03/24 07:45
I&O
09/02/24 09/03/24 09/04/24
06:59 06:59 06:59
Intake Total 1440 / 1440 600 / 600
Output Total 810 / 810 900 / 900
Balance 630 / 630 -300 / -300
--- NOTE | 2024-09-03 09:30 | W.DCSUMMARY ---
Discharge Summary
Discharge Data
Date of Admission: 08/29/24
Date of Discharge: 09/03/24
Total time spent discharging patient (in min): 35
-
Pending Results: No
Hospital Course
Patient 89 years old female history of end-stage renal disease, hypertension, hypothyroidism, Raynaud's, hyperlipidemia, she has been managed with peritoneal dialysis prior to admission and came into the hospital having jerking movements and
concerns for failure of peritoneal dialysis. Nephrology was consulted. It was decided to transition her to hemodialysis. She had a tunneled catheter placed and she received HD during this hospital stay. She also had PD fluid evaluated for
infection and there was no signs of infection. She also received 3% saline for her severe hyponatremia and subsequently managed with sodium bath adjustments on her dialysis. Her course complicated with urinary retention and urology consulted.
Urology recommended to keep Martínez catheter in place and evaluate as outpatient. No other events were noticed. HD has been arranged as outpatient by caseworker. Otherwise she is hemodynamically stable and feels back to her baseline. She will be
discharged in relatively stable condition today.
Discharge duration: 35 minutes
Discharge Plan
-
Patient Disposition: Home (Routine Discharge)
Discharge Diagnosis/Procedures: End-stage renal disease converted peritoneal dialysis to hemodialysis. Hyponatremia.
Diet: Low Cholesterol, Low Sodium and Restrict fluids to 64 oz
Activity: As tolerated
Blood Work: Please PCP to order CBC, BMP within 1 week
Referrals:
Cole Wheeler MD [Active] - (call dr wheeler UROLOGY [phone] for evaluation for urinary retention We may assign you to our female nurse practitioner Ms Elvia David to start the eval. )
Irwin Hwang MD [Active] - in one to two weeks
Placido Scales MD [Family Provider] - in less than 1 week
Prescriptions:
New
alprazolam 0.25 mg Tablet
0.25 mg PO HSPRN PRN (Reason: Insomnia) Qty: 10 0RF
Continued
nifedipine [Procardia XL] 30 mg Tablet Extended Release 24hr
30 mg PO HS
furosemide 80 mg Tablet
80 mg PO DAILY
rosuvastatin 5 mg Tablet
5 mg PO DAILY
Dialyvite 100-1 mg Tablet
1 tab PO DAILY
cholecalciferol (vitamin D3) [Vitamin D3] 50 mcg (2,000 unit) Tablet
50 mcg PO DAILY
febuxostat 40 mg Tablet
40 mg PO DAILY
loperamide 2 mg Tablet
2 mg PO BIDPRN PRN (Reason: diarrhea)
methenamine hippurate 1 gram Tablet
1 g PO HS
ascorbic acid (vitamin C) [Vitamin C] 250 mg Tablet
250 mg PO HS
gabapentin 100 mg Capsule
300 mg PO HS
Aranesp (in polysorbate) 40 mcg/0.4 mL Syringe
40 mcg IV Q14D
omeprazole 20 mg Tablet,Delayed Release (Dr/Ec)
20 mg PO QPM
levothyroxine [Synthroid] 112 mcg Tablet
112 mcg PO DAILY
Discharge Orders:
Discharge Patient (As Directed); Ordered 09/03/24
Ordered By: Brian Stevens
Discharge Date and Time
Discharge Date/Time: 09/03/24 12:26
Print Language: SLOVENIAN
[2024-09-03 09:32] VITALS: BP 131/64; PULSE 57
[2024-09-03 09:35] VITALS: BP 131/64; PULSE 98; O2SAT 97
[2024-09-03] MEDS: CRESTOR 5 MG PO (09:39)
[2024-09-03] MEDS: VITAMIN D3 (cholecalciferol) 50 MCG PO (09:40)
[2024-09-03] MEDS: LASIX 80 MG PO (09:40)
[2024-09-03] MEDS: HEPARIN 5000 UNITS SC (09:40)
[2024-09-03] MEDS: NEPHROCAP 1 CAPSULE PO (09:40)
[2024-09-03] MEDS: ULORIC 40 MG PO (09:40)
[2024-09-03 09:47] LABS: Blood Urea Nitrogen 25 mg/dl (7-17); Calcium 9.3 mg/dl (8.4-10.2); Carbon Dioxide 30 mmol/L (22-30); Chloride 99 mmol/L (98-107); Estimated Creatinine Clearance 7 ml/min; Glucose 77 mg/dl (70-99); Potassium 3.4 mmol/L (3.5-5.1); Sodium 133 mmol/L (135-145); eGFR 10.27
[2024-09-03 11:30] VITALS: BP 108/49
== END 2024-09-03 12:26 | disposition home health service (06) | DRG 919 ==
LOC: 2 NORTH 19:27
PROVIDERS: Clinical Nurse Specialist Family Health; Emergency Medicine; General Practice; Internal Medicine; Radiology Vascular & Interventional Radiology; Specialist; ADMITTING PHYSICIAN Hospitalist; ATTENDING PHYSICIAN Hospitalist; CONSULT PHYSICIAN Specialist; EMERGENCY PHYSICIAN Student in an Organized Health Care Education/Training Program; FAMILY PHYSICIAN Family Medicine
PROC: 5A1D70Z Performance of Urinary Filtration, Intermittent, Less than 6 Hours Per Day (ICD-10-PCS; 2024-08-30)
PROC: 0JH63XZ Insertion of Tunneled Vascular Access Device into Chest Subcutaneous Tissue and Fascia, Percutaneous Approach (ICD-10-PCS; 2024-08-30)
DX: T85.691A Other mechanical complication of intraperitoneal dialysis catheter, initial encounter (principal); N18.6 End stage renal disease; I12.0 Hypertensive chronic kidney disease with stage 5 chronic kidney disease or end stage renal disease; E87.1 Hypo-osmolality and hyponatremia; K21.9 Gastro-esophageal reflux disease without esophagitis; Z87.440 Personal history of urinary (tract) infections; E03.9 Hypothyroidism, unspecified; D63.1 Anemia in chronic kidney disease; E87.5 Hyperkalemia; I73.00 Raynaud's syndrome without gangrene; Z66 Do not resuscitate; Y84.8 Other medical procedures as the cause of abnormal reaction of the patient, or of later complication, without mention of misadventure at the time of the procedure
CPT/HCPCS: 36558; 76942; 77001; 80048; 80053; 82962; 83735; 83930; 83935; 84100; 84300; 84439; 84443; 85025; 85027; 86704; 86706; 86803; 87324; 87340; 87449; 93005; 96374; 97162; 97167; 97530; 97535; 99152; 99153; 99291; C1750; G0257; Q5106

== ENCOUNTER → 2024-09-11 10:32 | Outpatient (REF) | payer OTHER, SELFPAY ==
[2024-09-11 10:47] LABS: % Basophils 0.5 % (0-2); % Immature Granulocytes 0.2 % (0-0.5); % Lymphocytes 19.5 % (20.5-51.1); % Monocytes 11.3 % (1.7-9.3); % Neutrophils 66.5 % (42.2-75.2); Absolute Eosinophils 0.1 10^3/uL (0-0.7); Absolute Lymphocytes 1.1 10^3/uL (1.2-3.4); Absolute Monocytes 0.6 10^3/uL (0.1-0.6); Absolute Neutrophils 3.7 10^3/uL (1.4-6.5); Hematocrit 26.2 % (37.0-47.0); Hemoglobin 8.3 g/dL (12.0-16.0); Mean Corp Hgb Conc. 31.7 g/dL (33.0-37.0); Mean Corpuscular Hgb 31.1 pg (27.0-31.0); Mean Corpuscular Volume 98.1 fL (81.0-99.0); Mean Platelet Volume 8.3 fL (7.4-10.4); Platelet Count 180 10^3/uL (130-400); Red Blood Cell Count 2.67 10^6/uL (4.20-5.40); Red Cell Dist. Width 13.1 % (11.5-14.5); White Blood Cell Count 5.6 10^3/uL (4.8-10.8)
== END ==
LOC: OIDL 10:32
PROVIDERS: ATTENDING PHYSICIAN Internal Medicine Hematology & Oncology; FAMILY PHYSICIAN Family Medicine
DX: N18.4 Chronic kidney disease, stage 4 (severe) (principal); D63.1 Anemia in chronic kidney disease; D50.9 Iron deficiency anemia, unspecified; D51.9 Vitamin B12 deficiency anemia, unspecified
CPT/HCPCS: 36415; 85025; 86850; 86900; 86901; 86920

== ENCOUNTER 2024-09-13 10:41 | Outpatient (RCR) | payer OTHER, SELFPAY ==
[2024-09-13 11:19] VITALS: BP 133/45
[2024-09-13 11:37] VITALS: BP 129/50
[2024-09-13 14:16] VITALS: BP 147/53
== END 2024-09-14 23:59 | disposition home or self-care (01) ==
LOC: OID 10:41
PROVIDERS: ATTENDING PHYSICIAN Internal Medicine Hematology & Oncology
DX: C90.00 Multiple myeloma not having achieved remission (principal); C79.51 Secondary malignant neoplasm of bone; N18.4 Chronic kidney disease, stage 4 (severe); D63.1 Anemia in chronic kidney disease; D64.81 Anemia due to antineoplastic chemotherapy
CPT/HCPCS: 36415; 36430; 86850; 86900; 86901; 86920; P9016

== ENCOUNTER → 2024-09-25 09:34 | Outpatient (REF) | payer OTHER, SELFPAY ==
[2024-09-25 10:00] LABS: % Basophils 0.8 % (0-2); % Immature Granulocytes 0.2 % (0-0.5); % Lymphocytes 23.9 % (20.5-51.1); % Monocytes 10.6 % (1.7-9.3); % Neutrophils 61.5 % (42.2-75.2); Absolute Basophils 0.1 10^3/uL (0-0.2); Absolute Eosinophils 0.2 10^3/uL (0-0.7); Absolute Lymphocytes 1.5 10^3/uL (1.2-3.4); Absolute Monocytes 0.7 10^3/uL (0.1-0.6); Absolute Neutrophils 3.9 10^3/uL (1.4-6.5); Hematocrit 31.7 % (37.0-47.0); Hemoglobin 10.3 g/dL (12.0-16.0); Mean Corp Hgb Conc. 32.5 g/dL (33.0-37.0); Mean Corpuscular Hgb 30.4 pg (27.0-31.0); Mean Corpuscular Volume 93.5 fL (81.0-99.0); Mean Platelet Volume 8.4 fL (7.4-10.4); Platelet Count 213 10^3/uL (130-400); Red Blood Cell Count 3.39 10^6/uL (4.20-5.40); Red Cell Dist. Width 14.1 % (11.5-14.5); White Blood Cell Count 6.3 10^3/uL (4.8-10.8)
== END ==
LOC: OIDL 09:34
PROVIDERS: ATTENDING PHYSICIAN Internal Medicine Hematology & Oncology; FAMILY PHYSICIAN Family Medicine
DX: N18.4 Chronic kidney disease, stage 4 (severe) (principal); D63.1 Anemia in chronic kidney disease; D50.9 Iron deficiency anemia, unspecified; D51.9 Vitamin B12 deficiency anemia, unspecified
CPT/HCPCS: 36415; 85025

== ENCOUNTER → 2025-01-03 10:45 | Outpatient (REF) | payer OTHER, SELFPAY | LOC: HWRAD 10:45 | PROVIDERS: ATTENDING PHYSICIAN Family Medicine | DX: M81.8 Other osteoporosis without current pathological fracture (principal) | CPT/HCPCS: 77080 ==

== ENCOUNTER → 2025-01-20 14:09 | Outpatient (REF) | payer OTHER, SELFPAY | LOC: RAD 14:09 | PROVIDERS: ATTENDING PHYSICIAN Internal Medicine; FAMILY PHYSICIAN Family Medicine | DX: K59.09 Other constipation (principal); R15.9 Full incontinence of feces | CPT/HCPCS: 74019 ==

== ENCOUNTER → 2025-04-15 08:56 | Outpatient (REF) | payer OTHER, SELFPAY ==
[2025-04-15 09:34] VITALS: BP 127/52; BP_SYST 63
[2025-04-15 09:50] VITALS: BP 131/55
== END ==
LOC: RADI 08:56
DX: Z49.01 Encounter for fitting and adjustment of extracorporeal dialysis catheter (principal); N18.6 End stage renal disease
CPT/HCPCS: 36589